=== PATIENT | female | born 1970 | race African-American/Black ===

== ENCOUNTER 2024-12-13 15:56 | Inpatient (IN) | payer BC, OTHER, SELFPAY ==
[2024-12-13] VITALS (39 sets, daily range): BP systolic 128–170; BP diastolic 77–113; PULSE 44–62; TEMP 36.4–36.8; O2SAT 92–100; BMI 30.2
--- NOTE | 2024-12-13 16:10 | CT_ITS ---
The [address] [address] Patient Name: STEPHEN ABERNATHY MRN: [id number] date: 1970 Sex: F Assigned Patient Location: ER Current Patient Location: [facility] Accession/Order Number: [id number] Exam Date: 12/13/2024 16:52 Report Date: 12/13/2024 16:54 At the request of: NEETU LOVELL MD Procedure: CT head/brain wo con CT head/brain wo con 12/13/2024 4:43 PM SIGNS AND SYMPTOMS: Headache, bradycardia TECHNIQUE:Multi-detector CT axial slices of the brain were obtained without IV contrast. CT was performed with one or more of the following dose reduction techniques: Automated exposure control, adjustment of the mA and/or kV according to patient size, or use of iterative reconstruction technique. COMPARISON: None. FINDINGS: There is no shift of the midline structures, acute intracranial bleeding, mass effects, or evidence of acute ischemia. The ventricular system is normal in size. The brainstem and the cerebellum are unremarkable. The visualized intraorbital contents and the infratemporal soft tissues show no acute abnormality. Polypoid mucosal thickening is noted in the right sphenoid sinus. The osseous structures in the skull base and the calvarium show no abnormality. CT/CT head/brain wo con IMPRESSION: No acute intracranial pathology. Impression dictated by: Henrique Rodriguez M.D. 12/13/2024 4:54 PM Dictation Location: [place] [address] Electronically authenticated by: [id number] Y Date: 12/13/2024 16:54
--- NOTE | 2024-12-13 16:28 | XR_ITS ---
[place] [id number] Patient Name: STEPHEN ABERNATHY MRN: [id number] date: 1970 Sex: F Assigned Patient Location: ER Current Patient Location: ED.MAIN Accession/Order Number: [id number] Exam Date: 12/13/2024 16:54 Report Date: 12/13/2024 16:56 At the request of: NEETU LOVELL MD Procedure: XR chest 2V XR chest 2V 12/13/2024 4:48 PM SIGNS AND SYMPTOMS: Headache, bradycardia PROTOCOL: Frontal radiograph of the chest COMPARISON: None FINDINGS: The trachea is midline. The heart and mediastinal structures are within normal limits. The heart is mildly enlarged. The heart and mediastinal structures are otherwise within normal limits. The bony thorax is intact. Degenerative changes are present in the thoracic spine. Anterior fusion hardware is noted in the lower cervical spine XR/XR chest 2V IMPRESSION: There is mild cardiomegaly. No focal consolidation. Impression dictated by: Henrique Rodriguez M.D. 12/13/2024 4:56 PM Dictation Location: [place] [address] Electronically authenticated by: [id number] Y Date: 12/13/2024 16:56
--- NOTE | 2024-12-13 16:28 | ECG_ITS ---
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 Measurements Intervals [place] Rate: 46 P: 67 NC: 206 QRS: 25 QRSD: 78 T: 75 QT: 456 QTc: 414 Interpretive Statements 1130 Sinus bradycardia 4068 Nonspecific Twave abnormality abnormal ECG No previous ECG available for comparison Electronically Signed On 12-13-2024 18:27:27 EDT by PLACIDO GIVENS M.D.
[2024-12-13] MEDS: ACETAMINOPHEN 500 MG TABLET PO (16:29)
[2024-12-13] MEDS: METOCLOPRAMIDE HCL 10 MG/2 ML VIAL IVP (16:30)
[2024-12-13] MEDS: DIPHENHYDRAMINE HCL 50 MG/ML VIAL 25 MG IVP (16:30)
--- NOTE | 2024-12-13 16:30 | ED_ITS ---
HPI HPI - General Adult General Chief complaint: Neuro Symptoms/Deficit Stated complaint: CHEST PAIN Time Seen by Provider: 12/13/24 16:10 Source: patient Mode of arrival: ambulance Limitations: no limitations History of Present Illness HPI narrative: Patient is a 54-year-old female who is presenting to the ER with headache from [facility]. All systems are negative except as noted/marked. All systems reviewed and otherwise negative. Nurses note and vital signs reviewed and patient is not hypoxic. General: The patient appears well and in no apparent distress. Patient is resting comfortably on cart. Patient is not toxic, lethargic, or listless Skin: Warm, dry, no pallor noted. There is no rash noted. No petechiae, purpura. Head: Normocephalic, atraumatic Eye: Normal conjunctiva, no drainage, EOMI. PERRL Ears, Nose, Mouth, and Throat: oral mucosa is moist. Nares patent. Mouth without vesicles. Cardiovascular: Regular Rate and Rhythm, no murmur, gallop, rub Respiratory: Patient is in no distress, no accessory muscle use, lungs are clear to auscultation, no wheezing, rales or rhonchi Back: non-tender, no CVA tenderness bilaterally to percussion. No CT LS midline pain GI: no tenderness to palpation, no masses appreciated. No rebound, guarding, or rigidity noted. No distention Musculoskeletal: Patient has full range of motion of all of the extremities, no motor, sensory, or focal neurological deficits Neurological: A&O x4, normal speech Psychiatric: Cooperative Related Data Allergies Allergy/AdvReac Type Severity Reaction Status Date / Time aspirin Allergy Unknown Verified 12/13/24 16:03 Penicillins Allergy Unknown Verified 12/13/24 16:03 quetiapine (From Seroquel) Allergy Unknown Verified 12/13/24 16:03 ziprasidone (From Geodon) Allergy Unknown Verified 12/13/24 16:03 Opioid HPI Opioid Management Most Recent Opioid Data: Last Pain Scale 10 Today, 16:04 Exam Constitutional Vital Signs, click to edit/add: Last Vital Signs Temp 98.2 F 12/13/24 16:04 Pulse 56 L 12/13/24 16:04 Resp 18 12/13/24 16:04 BP 158/86 H 12/13/24 16:04 Pulse Ox 97 12/13/24 16:04 Course Vital Signs Vital signs: Vital Signs Temperature 98.2 F 12/13/24 16:04 Pulse Rate 56 L 12/13/24 16:04 Respiratory Rate 18 12/13/24 16:04 Blood Pressure 158/86 H 12/13/24 16:04 Pulse Oximetry 97 12/13/24 16:04 Temperature 98.2 F 12/13/24 16:04 Pulse Rate 56 L 12/13/24 16:04 Respiratory Rate 18 12/13/24 16:04 Blood Pressure 158/86 H 12/13/24 16:04 Pulse Oximetry 97 12/13/24 16:04 Medical Decision Making ECG Data Attestation: I personally reviewed and interpreted this ECG as follows: (EKG interpretation. Normal sinus rhythm at 56 beats a minute. Artifact seen. Normal axis deviation. No acute ST elevation, no acute ectopy. QTc of 420. EKG #1.) Discharge Plan Discharge Chief Complaint: Neuro Symptoms/Deficit Print Language: French Referrals: Physician,Non-Staff, MD [Primary Care Provider] - 1 week
--- OUTSIDE RECORDS SUMMARY | 2024-12-13 16:35 | XMS_ITS | Encounter Summary ---
Author Organization [facility] Address [id number] [address] [place] [address] Care Team Providers Care Coin Box Inspector Name Role Phone Unavailable Primary Care Provider Unavailabl e Encounter Details Date Type Department Care Team (Late st Contact Info) Description 12/13/2024 4:35 PM EDT Ancillary Procedure [facility] [address] [place] [address] Pain Social History Tobacco Use Types Packs/Day Years Used Date Smoking Tobacco: Never Smokeless Tobacco: Never Alcohol Use Standard Drinks/Week Comments Not Currently 12 (1 standard drink = 0.6 oz pure alcohol) pt states she has not drank since 07/26/24 [facility] Utilities Answer Date Recorded In the past 12 months has [facility] electric, gas, oil, or water company threatened to shut off services in your home? No 08/18/2024 Overall Financial Resource Strain (CARDIA) Answe r Date Recorded How hard is it for you to pa y for the very basics like food, housing, medical care, and heating? Not very hard 08/18/2024 PRAPARE - Transportation Answer Date Re corded In the past 12 months, has l ack of transportation kept you from medical appointments or from getting medications? No 07/25 In the past 12 months, has l ack of transportation kept you from meetings, work, or from getting things needed for daily living? No 08/18/2024 Housing Instability Answer Date Recorde d Are you worried or concerned that in the next two months you may not have stable housing that you own, rent or stay in as a part of a household? No 08/18/2024 Hunger Screening Answer Date Recorded Within the past 12 months we worried whether our food would run out before we got money to buy more. Never True 08/18/2024 Within the past 12 months th e food we bought just didn't last and we didn't have money to get more. Never True 08/18/2024 Comments No Sex and Gender Information Value Date Recorded Sex Assigned at Not on file Legal Sex Female 7:59 PM EST Gender Identity Not on file Sexual Orientation Not on file documented as of this encounter Plan of Treatment Not on file documented as of this encounter Goals Goal Patient Goal Type Associated Problems Recent Progress Patient-Stated? Author DC to home General Yes Fallon Hathaway LSW Note: Evaluation of progress towards goal: In progress: DC to home today when her ride gets here. documented as of this encounter Procedures Procedure Name Priority Date/Time Associated Diagnosis Comments XR CHEST 2 VWS Routine 12/13/2024 4:35 PM EDT Pain documented in this encounter Results * X-ray chest 2 views (12/13/2024 4:35 PM EDT) us Scanning Provider External IMG DIAGNOSTIC IMAGIN G ORDERABLES Final Result documented in this encounter Visit Diagnoses Diagnosis Pain Generalized pain documented in this encounter
--- OUTSIDE RECORDS SUMMARY | 2024-12-13 16:45 | XMS_ITS | Encounter Summary ---
Author Organization [facility] Address [id number] [address] [place] [address] Care Team Providers Care Welder Plasma Arc Name Role Phone Unavailable Primary Care Provider Unavailabl e Reason for Visit * Diagnostic Imaging (Routine) - Pending Review Specialty Diagnoses / Procedures Referred By Danielle duggan Referred To Contact Radiology Diagnoses Pain Procedures CT brain without contrast [facility] [address] [place] [phone] Phone: tel: fax: Referral ID Status Reason Start Date Expiration Date V isits Requested Visits Authorized [id number] Pending Review 12/15/2024 12/15/2025 1 1 Encounter Details Date Type Department Care Team (Late st Contact Info) Description 12/13/2024 4:45 PM EDT Ancillary Procedure [facility] [address] [place] [phone] Pain Social History Tobacco Use Types Packs/Day Years Used Date Smoking Tobacco: Never Smokeless Tobacco: Never Alcohol Use Standard Drinks/Week Comments Not Currently 12 (1 standard drink = 0.6 oz pure alcohol) pt states she has not drank since 07/26/24 [facility] Utilities Answer Date Recorded In the past 12 months has e electric, gas, oil, or water company threatened [...] Procedure Name Priority Date/Time Associated Diagnosis Comments CT BRAIN WO CONT Routine 12/13/2024 4:45 PM EDT Pain documented in this encounter Results * CT brain without contrast (12/13/2024 4:45 PM EDT) us Scanning Provider External IMG CT ORDERABLES Fin al Result documented in this encounter Visit Diagnoses Diagnosis Pain Generalized pain documented in this encounter
[2024-12-13 17:37] LABS: Basophils Absolute Auto 0.1 10^3/uL (0.0-0.1); Eosinophils Absolute Auto 0.4 10^3/uL (0.0-0.7); Eosinophils Percent Auto 6.2 % (0.9-7.0); Hematocrit 38.2 % (36.0-48.0); Hemoglobin 12.9 g/dL (12.0-16.0); Immature Granulocytes Abs Auto 0.02 10^3/uL (0.00-0.03); Immature Granulocytes Pct Auto 0.3 % (0.0-0.5); Lymphocytes Absolute Auto 1.9 10^3/uL (1.2-3.8); Lymphocytes Percent Auto 32.1 % (20.5-60.0); Mean Corpuscular HGB Conc 33.8 g/dL (29.9-35.2); Mean Corpuscular Hemoglobin 30.7 pg (26.7-34.0); Mean Platelet Volume 9.5 fL (9.5-13.5); Monocytes Absolute Auto 0.6 10^3/uL (0.3-0.8); Monocytes Percent Auto 10.3 % (1.7-12.0); Neutrophils Absolute Auto 2.9 10^3/uL (1.4-6.5); Neutrophils Percent Auto 50.1 % (43.0-75.0); Platelet Count 254 10^3/uL (150-450); Red Cell Distribution Width 13.3 % (11.0-15.0); White Blood Count 5.8 10^3/uL (4.0-11.0)
[2024-12-13 18:00] LABS: Alanine Aminotransferase 47 U/L (14-59); Albumin Globulin Ratio 0.9; Albumin Level 3.4 g/dL (3.4-5.0); Alkaline Phosphatase 164 U/L (46-116); Anion Gap 9.4; Aspartate Amino Transferase 27 U/L (15-37); BUN Creatinine Ratio 15.2; Bilirubin Total 0.1 mg/dL (0.2-1.0); Calcium 8.8 mg/dL (8.5-10.1); Carbon Dioxide 30.4 mmol/L (21.0-32.0); Chloride 104 mmol/L (98-107); Estimated GFR (African America >60 (>=60 mL/min/1.73m^2); Estimated GFR (Non-African Ame >60 (>=60 mL/min/1.73m^2); Globulin 3.8 g/dL; Glucose 85 mg/dL (74-106); Potassium 3.8 mmol/L (3.5-5.1); Sodium 140 mmol/L (136-145); Total Protein 7.2 g/dL (6.4-8.2)
[2024-12-13 18:06] LABS: Troponin I High Sensitivity 5.6 pg/mL (4.0-51.3)
[2024-12-13] MEDS: DEXAMETHASONE SOD PHOS 10 MG/ML VIAL IV (18:06)
[2024-12-13] MEDS: ONDANSETRON PF 4 MG/2 ML VIAL IV (18:06)
--- NOTE | 2024-12-13 18:27 | ED.GENADUL1 ---
Documented by User: Melani Trivedi 12/14/24 11:35 HPI HPI - General Adult General Chief complaint: Neuro Symptoms/Deficit Stated complaint: CHEST PAIN Time Seen by Provider: 12/13/24 16:10 Source: patient Mode of arrival: ambulance Limitations: no limitations History of Present Illness HPI narrative: 54-year-old female presents here with a chief complaint of a headache. She is [facility] for the past month for rehabilitation crack, cocaine, alcohol addiction. patient is alert and orient this time. She was at the facility got worked up began to have a headache and stated was worst headache of her life . Patient had history of migraine headaches but states is not a typical migraine headache here. Patient denies any recent exposure to any drugs. She has been clean for a month. She is alert and oriented as I am talking to her, neurological deficit. she is squinting sitting and that her eyes hurt. Related Data Home Medications ?Medication ?Instructions ?Recorded ?Confirmed acetaminophen 500 mg capsule 500 mg PO BID PRN fever or pain 12/13/24 12/13/24 deutetrabenazine 30 mg 30 mg PO DAILY 12/13/24 12/13/24 tablet,extended release 24 hr (Austedo XR) diphenhydramine HCl 25 mg capsule 25 mg PO Q8H PRN allergy symptoms 12/13/24 12/13/24 (Benadryl) hydroxyzine HCl 25 mg tablet 25 mg PO Q6H PRN anxiety 12/13/24 12/13/24 ibuprofen 800 mg tablet 800 mg PO BID 12/13/24 12/13/24 lumateperone 42 mg capsule 42 mg PO DAILY 12/13/24 12/13/24 (Caplyta) melatonin 10 mg capsule 10 mg PO DAILY 12/13/24 12/13/24 mirtazapine 7.5 mg tablet 7.5 mg PO DAILY 12/13/24 12/13/24 naltrexone 50 mg tablet 50 mg PO DAILY 12/13/24 12/13/24 polyethylene glycol 3350 17 17 g PO DAILY 12/13/24 12/13/24 gram/dose oral powder (Miralax) sertraline 100 mg tablet (Zoloft) 100 mg PO DAILY 12/13/24 12/13/24 Allergies Allergy/AdvReac Type Severity Reaction Status Date / Time aspirin Allergy Unknown Verified 12/13/24 16:03 Penicillins Allergy Unknown Verified 12/13/24 16:03 quetiapine (From Seroquel) Allergy Unknown Verified 12/13/24 16:03 ziprasidone (From Geodon) Allergy Unknown Verified 12/13/24 16:03 Opioid HPI Opioid Management Most Recent Opioid Data: Last Pain Scale 10 Today, 10:09 Last Pain Assessment 12/13/24, 21:00 Last ORT Total Score 13 12/13/24, 19:51 Last ORT Risk Category High Risk 12/13/24, 19:51 Ur Phencyclidine Scrn, (NEGATIVE) Negative Today, 05:39 Review of Systems ROS Status of ROS 10 or more systems reviewed and unremarkable except as noted in history and below PFSH PFSH Medical History (Updated 12/13/24 @ 20:19 by Priscila Hernandez RN) Hx of headache ?Z87.898 - Personal history of other specified conditions (ICD-10) HTN (hypertension) ?I10 - Essential (primary) hypertension (ICD-10) Asthma ?J45.909 - Unspecified asthma, uncomplicated (ICD-10) COPD (chronic obstructive pulmonary disease) ?J44.9 - Chronic obstructive pulmonary disease, unspecified (ICD-10) Prediabetes ?R73.03 - Prediabetes (ICD-10) Hx of drug abuse ?F19.11 - Other psychoactive substance abuse, in remission (ICD-10) Stomach ulcer ?K25.9 - Gastric ulcer, unspecified as acute or chronic, without hemorrhage or perforation (ICD-10) History of intestine removal ?Z90.49 - Acquired absence of other specified parts of digestive tract (ICD-10) Degenerative disc disease Tardive dyskinesia ?G24.01 - Drug induced subacute dyskinesia (ICD-10) Hx of myocardial infarction ?I25.2 - Old myocardial infarction (ICD-10) Hx of completed stroke ?Z86.73 - Personal history of transient ischemic attack (TIA), and cerebral infarction without residual deficits (ICD-10) Surgical History (Updated 12/13/24 @ 20:19 by Priscila Hernandez RN) Hx of hernia repair ?Z98.890 - Other specified postprocedural states (ICD-10) ?Z87.19 - Personal history of other diseases of the digestive system (ICD-10) Hx of tonsillectomy ?Z90.89 - Acquired absence of other organs (ICD-10) H/O: hysterectomy ?Z90.710 - Acquired absence of both cervix and uterus (ICD-10) Hx of neck surgery ?Z98.890 - Other specified postprocedural states (ICD-10) Family History (Updated 12/13/24 @ 20:19 by Priscila Hernandez RN) Mother Family history of cancer Family history of diabetes mellitus Social History (Updated 12/13/24 @ 20:20 by Priscila Hernandez RN) Within the past year, how often did you have a drink containing alcohol: never Score interpretation: A score less than 3 is consistent with normal alcohol consumption. Smoking status: Never smoker Non-prescribed substance use: former substance user Highest level of school completed/degree received: 9th grade Are you now , , , , never or living with a partner: never In a typical week, how many times do you talk on the telephone with family, friends, or neighbors: twice per week How often do you get together with friends or relatives: twice per week Little interest or pleasure in doing things: not at all Feeling down, depressed, or hopeless: not at all Feel stressed/tense/nervous/anxious/difficulty sleeping: only a little Do you think of yourself as: lesbian/[place]/homosexual Gender Identity: female Exam Narrative Exam Narrative: All Systems are negative except as noted/marked.All systems reviewed and otherwise negative Nurses note and vital signs reviewed and patient is not hypoxic. General: The patient appears well and in no apparent distress. Patient is resting comfortably on cart. Skin: Warm, dry, no pallor noted. There is no rash noted. Head: Normocephalic, atraumatic Eye: Normal conjunctiva, no drainage, EOMI. PERRL Ears, Nose, Mouth, and Throat: oral mucosa is moist. Nares patent. Mouth without vesicles. Ear canals patent. Tm's without Erythema Cardiovascular: Regular Rate and Rhythm Respiratory: Patient is in no distress, no accessory muscle use, lungs are clear to auscultation, no wheezing, rales or rhonchi Back: non-tender, no CVA tenderness bilaterally to percussion. GI: Normal bowel sounds, no tenderness to palpation, no masses appreciated. No rebound, guarding, or rigidity noted. Musculoskeletal: The patient has no evidence of calf tenderness, no pitting edema, symmetrical pulses noted bilaterally Neurological: A&O x4, normal speech Psychiatric: Cooperative Constitutional Vital Signs, click to edit/add: Last Vital Signs Temp 98.4 F 12/14/24 09:49 Pulse 50 L 12/14/24 09:49 Resp 16 12/14/24 09:49 BP 163/81 H 12/14/24 09:49 Pulse Ox 95 12/14/24 09:49 O2 Del Method Room Air 12/14/24 09:49 Course Vital Signs Vital signs: Vital Signs Pulse Rate 52 L 12/13/24 15:58 Respiratory Rate 21 H 12/13/24 15:58 Pulse Oximetry 99 12/13/24 15:58 Temperature 98.4 F 12/14/24 09:49 Pulse Rate 50 L 12/14/24 09:49 Respiratory Rate 16 12/14/24 09:49 Blood Pressure 163/81 H 12/14/24 09:49 Pulse Oximetry 95 12/14/24 09:49 Oxygen Delivery Method Room Air 12/14/24 09:49 Medical Decision Making MDM Narrative Medical decision making narrative: 54-year-old female presents here with a chief complaint of a headache. She is currently at [facility] for the past month for rehabilitation crack, cocaine, alcohol addiction. patient is alert and orient this time. She was at the facility got worked up began to have a headache and stated was worst headache of her life . Patient had history of migraine headaches but states is not a typical migraine headache here. Patient denies any recent exposure to any drugs. She has been clean for a month. She is alert and oriented as I am talking to her, neurological deficit. she is squinting sitting and that her eyes hurt. To the emergency room, patient was experiencing a headache. She has been medicated with IV fluids Toradol Decadron Zofran. She has been bradycardic since here in the emergency room. No known history of bradycardia. She is on medication called austedo xr side effect of prolonged QT, to examine patient she complained of continued headache open 8 out of 10 were upon arrival was 10 out of 10. She has no focal neurological deficit. She has a new onset of bradycardia no history of bradycardia patient will be admitted as of headache, bradycardia Spoke to hospitalist concerning this patient's admission. She will be admitted as a observation telemetry Differential Diagnosis Differential Diagnosis: headache, bradycardia Medical Records Medical records reviewed: Yes I reviewed the patient's medical records Lab Data Lab results reviewed: Yes I reviewed the patient's lab results Labs: Lab Results 12/13/24 Range/Units 17:25 WBC 5.8 (4.0-11.0) 10^3/uL RBC 4.20 (4.20-5.40) 10^6/uL Hgb 12.9 (12.0-16.0) g/dL Hct 38.2 (36.0-48.0) % MCV 91.0 (81.0-99.0) fL MCH 30.7 (26.7-34.0) pg MCHC 33.8 (29.9-35.2) g/dL RDW 13.3 (11.0-15.0) % Plt Count 254 (150-450) 10^3/uL MPV 9.5 (9.5-13.5) fL Neut % (Auto) 50.1 (43.0-75.0) % Lymph % (Auto) 32.1 (20.5-60.0) % [place] % (Auto) 10.3 (1.7-12.0) % Eos % (Auto) 6.2 (0.9-7.0) % Baso % (Auto) 1.0 (0.2-2.0) % Neut # (Auto) 2.9 (1.4-6.5) 10^3/uL Lymph # (Auto) 1.9 (1.2-3.8) 10^3/uL [place] # (Auto) 0.6 (0.3-0.8) 10^3/uL Eos # (Auto) 0.4 (0.0-0.7) 10^3/uL Baso # (Auto) 0.1 (0.0-0.1) 10^3/uL Abs Immat Gran (auto) 0.02 (0.00-0.03) 10^3/uL Imm/Tot Granulo (auto) 0.3 (0.0-0.5) % Sodium 140 (136-145) mmol/L Potassium 3.8 (3.5-5.1) mmol/L Chloride 104 (98-107) mmol/L Carbon Dioxide 30.4 (21.0-32.0) mmol/L Anion Gap 9.4 BUN 14.0 (7.0-18.0) mg/dL Creatinine 0.92 (0.55-1.02) mg/dL Est GFR ( Amer) >60 (>=60 mL/min/1.73m^2) Est GFR (Non-Af Amer) >60 (>=60 mL/min/1.73m^2) BUN/Creatinine Ratio 15.2 Glucose 85 (74-106) mg/dL Calcium 8.8 (8.5-10.1) mg/dL Total Bilirubin 0.1 L (0.2-1.0) mg/dL AST 27 (15-37) U/L ALT 47 (14-59) U/L Alkaline Phosphatase 164 H (46-116) U/L Troponin I High Sens 5.6 (4.0-51.3) pg/mL NT-Pro-B Natriuret Pep 76.0 (<=900.0) pg/mL Total Protein 7.2 (6.4-8.2) g/dL Albumin 3.4 (3.4-5.0) g/dL Globulin 3.8 g/dL Albumin/Globulin Ratio 0.9 Imaging Data Chest x-ray: Radiologist's impression: ITS Impressions Head CT 12/13/24 16:10 IMPRESSION: No acute intracranial pathology. Impression dictated by: Henrique Rodriguez M.D. 12/13/2024 4:54 PM Dictation Location: [place] Electronically authenticated by: [id number] Y Date: 12/13/2024 16:54 Chest X-Ray 12/13/24 16:28 IMPRESSION: There is mild cardiomegaly. No focal consolidation. Impression dictated by: Henrique Rodriguez M.D. 12/13/2024 4:56 PM Dictation Location: [place] Electronically authenticated by: [id number] Y Date: 12/13/2024 16:56 ECG Data Interpretation: 1559 sinus rhythm with a rate of 56 bpm IN interval 192 ms QRS duration 80 ms artifact noted, no STEMI repeat ekg, 1656 sinus bradycardia with a rate of 46 bpm sinus bradycardia IN interval 206 ms QRS duration 78 ms no STEMI Discharge Plan Discharge Chief Complaint: Neuro Symptoms/Deficit Clinical Impression: Headache, Bradycardia, sinus Patient Disposition: Admitted as Observation Time of Disposition Decision: 18:37 Condition: Fair Discharge Date/Time: 12/13/24 19:53 Documented by User: Dany Diana MD 12/13/24 21:17 HPI HPI - General Adult General Chief complaint: Neuro Symptoms/Deficit Stated complaint: CHEST PAIN Time Seen by Provider: 12/13/24 16:10 Related Data Home Medications ?Medication ?Instructions ?Recorded ?Confirmed acetaminophen 500 mg capsule 500 mg PO BID PRN fever or pain 12/13/24 12/13/24 deutetrabenazine 30 mg 30 mg PO DAILY 12/13/24 12/13/24 tablet,extended release 24 hr (Austedo XR) diphenhydramine HCl 25 mg capsule 25 mg PO Q8H PRN allergy symptoms 12/13/24 12/13/24 (Benadryl) hydroxyzine HCl 25 mg tablet 25 mg PO Q6H PRN anxiety 12/13/24 12/13/24 ibuprofen 800 mg tablet 800 mg PO BID 12/13/24 12/13/24 lumateperone 42 mg capsule 42 mg PO DAILY 12/13/24 12/13/24 (Caplyta) melatonin 10 mg capsule 10 mg PO DAILY 12/13/24 12/13/24 mirtazapine 7.5 mg tablet 7.5 mg PO DAILY 12/13/24 12/13/24 naltrexone 50 mg tablet 50 mg PO DAILY 12/13/24 12/13/24 polyethylene glycol 3350 17 17 g PO DAILY 12/13/24 12/13/24 gram/dose oral powder (Miralax) sertraline 100 mg tablet (Zoloft) 100 mg PO DAILY 12/13/24 12/13/24 Allergies Allergy/AdvReac Type Severity Reaction Status Date / Time aspirin Allergy Unknown Verified 12/13/24 16:03 Penicillins Allergy Unknown Verified 12/13/24 16:03 quetiapine (From Seroquel) Allergy Unknown Verified 12/13/24 16:03 ziprasidone (From Geodon) Allergy Unknown Verified 12/13/24 16:03 Opioid HPI Opioid Management Most Recent Opioid Data: Last Pain Scale 10 Today, 10:09 Last Pain Assessment 12/13/24, 21:00 Last ORT Total Score 13 12/13/24, 19:51 Last ORT Risk Category High Risk 12/13/24, 19:51 Ur Phencyclidine Scrn, (NEGATIVE) Negative Today, 05:39 PFSH PFSH Medical History (Updated 12/13/24 @ 20:19 by Priscila Hernandez, MARCELO) Hx of headache ?Z87.898 - Personal history of other specified conditions (ICD-10) HTN (hypertension) ?I10 - Essential (primary) hypertension (ICD-10) Asthma ?J45.909 - Unspecified asthma, uncomplicated (ICD-10) COPD (chronic obstructive pulmonary disease) ?J44.9 - Chronic obstructive pulmonary disease, unspecified (ICD-10) Prediabetes ?R73.03 - Prediabetes (ICD-10) Hx of drug abuse ?F19.11 - Other psychoactive substance abuse, in remission (ICD-10) Stomach ulcer ?K25.9 - Gastric ulcer, unspecified as acute or chronic, without hemorrhage or perforation (ICD-10) History of intestine removal ?Z90.49 - Acquired absence of other specified parts of digestive tract (ICD-10) Degenerative disc disease Tardive dyskinesia ?G24.01 - Drug induced subacute dyskinesia (ICD-10) Hx of myocardial infarction ?I25.2 - Old myocardial infarction (ICD-10) Hx of completed stroke ?Z86.73 - Personal history of transient ischemic attack (TIA), and cerebral infarction without residual deficits (ICD-10) Surgical History (Updated 12/13/24 @ 20:19 by Priscila Hernandez, MARCELO) Hx of hernia repair ?Z98.890 - Other specified postprocedural states (ICD-10) ?Z87.19 - Personal history of other diseases of the digestive system (ICD-10) Hx of tonsillectomy ?Z90.89 - Acquired absence of other organs (ICD-10) H/O: hysterectomy ?Z90.710 - Acquired absence of both cervix and uterus (ICD-10) Hx of neck surgery ?Z98.890 - Other specified postprocedural states (ICD-10) Family History (Updated 12/13/24 @ 20:19 by Priscila Hernandez RN) Mother Family history of cancer Family history of diabetes mellitus Social History (Updated 12/13/24 @ 20:20 by Priscila Hernandez RN) Within the past year, how often did you have a drink containing alcohol: never Score interpretation: A score less than 3 is consistent with normal alcohol consumption. Smoking status: Never smoker Non-prescribed substance use: former substance user Highest level of school completed/degree received: 9th grade Are you now , , , , never or living with a partner: never In a typical week, how many times do you talk on the telephone with family, friends, or neighbors: twice per week How often do you get together with friends or relatives: twice per week Little interest or pleasure in doing things: not at all Feeling down, depressed, or hopeless: not at all Feel stressed/tense/nervous/anxious/difficulty sleeping: only a little Do you think of yourself as: lesbian/[place]/homosexual Gender Identity: female Exam Constitutional Vital Signs, click to edit/add: Last Vital Signs Temp 98.4 F 12/14/24 09:49 Pulse 50 L 12/14/24 09:49 Resp 16 12/14/24 09:49 BP 163/81 H 12/14/24 09:49 Pulse Ox 95 12/14/24 09:49 O2 Del Method Room Air 12/14/24 09:49 Course Vital Signs Vital signs: Vital Signs Pulse Rate 52 L 12/13/24 15:58 Respiratory Rate 21 H 12/13/24 15:58 Pulse Oximetry 99 12/13/24 15:58 Temperature 98.4 F 12/14/24 09:49 Pulse Rate 50 L 12/14/24 09:49 Respiratory Rate 16 12/14/24 09:49 Blood Pressure 163/81 H 12/14/24 09:49 Pulse Oximetry 95 12/14/24 09:49 Oxygen Delivery Method Room Air 12/14/24 09:49 Medical Decision Making MDM Narrative Medical decision making narrative: 54-year-old female presents here with a chief complaint of a headache. She is currently at [facility] for the past month for rehabilitation crack, cocaine, alcohol addiction. patient is alert and orient this time. She was at the facility got worked up began to have a headache and stated was worst headache of her life . Patient had history of migraine headaches but states is not a typical migraine headache here. Patient denies any recent exposure to any drugs. She has been clean for a month. She is alert and oriented as I am talking to her, neurological deficit. she is squinting sitting and that her eyes hurt. To the emergency room, patient was experiencing a headache. She has been medicated with IV fluids Toradol Decadron Zofran. She has been bradycardic since here in the emergency room. No known history of bradycardia. She is on medication called austedo xr side effect of prolonged QT, to examine patient she complained of continued headache open 8 out of 10 were upon arrival was 10 out of 10. She has no focal neurological deficit. She has a new onset of bradycardia no history of bradycardia patient will be admitted as of headache, bradycardia headache has improved and the edge was taken off with IV medications given.. Spoke to hospitalist concerning this patient's admission. She will be admitted as a observation telemetry Patient's headache was not the worse headache of her life, not sudden onset, not thunderclap in nature. Patient was initially stating to nursing staff that this was the worst headache of her life but patient states that she has had similar headaches to this before, this was not sudden onset. Lumbar puncture was discussed at bedside with patient. CT of the head was negative. Patient was told if this is true the worst headache of her life and she has never had a headache like this before, we should perform lumbar puncture to rule out small percentage chance of intracranial hemorrhage. Patient is aware the risk and benefits of performing lumbar puncture or not. Patient declines lumbar puncture at this time. Patient has been in the ER significant amount of time secondary to delays in drawing patient's labs from lab and nursing staff, along with obtaining results of lab work. Patient was not initially bradycardic in the 40s when she arrived, patient has had continuous cardiac monitoring. Multiple different medications have been given at different times for her headache. Critical care time 32 minutes exclusive from separate billable procedures that were performed. The following was considered in the determination of critical care but not limited to the level of medical decision making, intensive cardiac and/or respiratory monitoring, frequent vital sign monitoring, evaluation of laboratory studies, evaluation of radiographic studies, oxygen monitoring, and constant monitoring and speaking to family at bedside Lab Data Labs: Lab Results 12/13/24 Range/Units 17:25 WBC 5.8 (4.0-11.0) 10^3/uL RBC 4.20 (4.20-5.40) 10^6/uL Hgb 12.9 (12.0-16.0) g/dL Hct 38.2 (36.0-48.0) % MCV 91.0 (81.0-99.0) fL MCH 30.7 (26.7-34.0) pg MCHC 33.8 (29.9-35.2) g/dL RDW 13.3 (11.0-15.0) % Plt Count 254 (150-450) 10^3/uL MPV 9.5 (9.5-13.5) fL Neut % (Auto) 50.1 (43.0-75.0) % Lymph % (Auto) 32.1 (20.5-60.0) % [place] % (Auto) 10.3 (1.7-12.0) % Eos % (Auto) 6.2 (0.9-7.0) % Baso % (Auto) 1.0 (0.2-2.0) % Neut # (Auto) 2.9 (1.4-6.5) 10^3/uL Lymph # (Auto) 1.9 (1.2-3.8) 10^3/uL [place] # (Auto) 0.6 (0.3-0.8) 10^3/uL Eos # (Auto) 0.4 (0.0-0.7) 10^3/uL Baso # (Auto) 0.1 (0.0-0.1) 10^3/uL Abs Immat Gran (auto) 0.02 (0.00-0.03) 10^3/uL Imm/Tot Granulo (auto) 0.3 (0.0-0.5) % Sodium 140 (136-145) mmol/L Potassium 3.8 (3.5-5.1) mmol/L Chloride 104 (98-107) mmol/L Carbon Dioxide 30.4 (21.0-32.0) mmol/L Anion Gap 9.4 BUN 14.0 (7.0-18.0) mg/dL Creatinine 0.92 (0.55-1.02) mg/dL Est GFR ( Amer) >60 (>=60 mL/min/1.73m^2) Est GFR (Non-Af Amer) >60 (>=60 mL/min/1.73m^2) BUN/Creatinine Ratio 15.2 Glucose 85 (74-106) mg/dL Calcium 8.8 (8.5-10.1) mg/dL Total Bilirubin 0.1 L (0.2-1.0) mg/dL AST 27 (15-37) U/L ALT 47 (14-59) U/L Alkaline Phosphatase 164 H (46-116) U/L Troponin I High Sens 5.6 (4.0-51.3) pg/mL NT-Pro-B Natriuret Pep 76.0 (<=900.0) pg/mL Total Protein 7.2 (6.4-8.2) g/dL Albumin 3.4 (3.4-5.0) g/dL Globulin 3.8 g/dL Albumin/Globulin Ratio 0.9 Imaging Data Chest x-ray: Radiologist's impression: ITS Impressions Head CT 12/13/24 16:10 IMPRESSION: No acute intracranial pathology. Impression dictated by: Henrique Rodriguez M.D. 12/13/2024 4:54 PM Dictation Location: [place] [address] Electronically authenticated by: [id number] Y Date: 12/13/2024 16:54 Chest X-Ray 12/13/24 16:28 IMPRESSION: There is mild cardiomegaly. No focal consolidation. Impression dictated by: Henrique Rodriguez M.D. 12/13/2024 4:56 PM Dictation Location: [place] [address] Electronically authenticated by: [id number] Y Date: 12/13/2024 16:56 ECG Data Attestation: I personally reviewed and interpreted this ECG as follows: (EKG interpretation. Normal sinus rhythm at 56 beats a minute. Artifact seen. Normal axis deviation. No acute ST elevation, no acute ectopy. QTc of 420. EKG #1.) Interpretation: 1559 sinus rhythm with a rate of 56 bpm IN interval 192 ms QRS duration 80 ms artifact noted, no STEMI EKG #2. repeat ekg, 1656 sinus bradycardia with a rate of 46 bpm sinus bradycardia IN interval 206 ms QRS duration 78 ms no STEMI Discharge Plan Discharge Chief Complaint: Neuro Symptoms/Deficit Clinical Impression: Headache, Bradycardia, sinus Patient Disposition: Admitted as Observation Time of Disposition Decision: 18:37 Condition: Fair Discharge Date/Time: 12/13/24 19:53
[2024-12-13] MEDS: 0.9 % SODIUM CHLORIDE 1,000 ML 1000 ML IV (18:42)
[2024-12-13] MEDS: KETOROLAC TROMETHAMINE 30 MG/ML VIAL IVP (18:42)
--- NOTE | 2024-12-13 19:22 | PC.NURSE ---
Report to Blessing ROBERTSON at [facility]--informed that she will be staying in room 232.
--- NOTE | 2024-12-13 19:29 | PC.NURSE ---
Report called to Elen ROBERTSON. 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
[2024-12-13] MEDS: MAGNESIUM SULFATE IN WATER 2 GM/50 ML PREMIX 3.3 GM IV (19:32)
--- NOTE | 2024-12-13 20:50 | PC.NURSE ---
Patient states her Headache is worse like before. Patient on phone to girlfriend who was being loud and cussing. Patient seemed anxious, legs restless and patient flopping around on bed. This health technical writer gave icepack for head and educated patient on deep breathing and relaxation. 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
[2024-12-13] MEDS: HYDROXYZINE HCL 25 MG TABLET PO (21:51)
[2024-12-14] VITALS (22 sets, daily range): BP systolic 138–194; BP diastolic 70–90; PULSE 42–68; TEMP 36.6–37; O2SAT 93–97
[2024-12-14] MEDS: KETOROLAC TROMETHAMINE 30 MG/ML VIAL 15 MG IVP ×4 (00:27→22:48)
[2024-12-14 05:52] LABS: Bilirubin Urine NEGATIVE (NEGATIVE); Blood Urine MODERATE (NEGATIVE); Clarity Urine CLEAR (CLEAR); Color Urine RED (YELLOW); Glucose Urine UA 250 mg/dL (NEGATIVE); Ketones Urine NEGATIVE (NEGATIVE); Leukocyte Esterase Urine MODERATE (NEGATIVE); Nitrite Urine NEGATIVE (NEGATIVE); Protein Urine NEGATIVE (NEG/TRACE); Specific Gravity Urine 1.025 (1.005-1.025)
[2024-12-14 06:00] LABS: Amorphous Sediment Urine RARE; Bacteria Urine SMALL #/HPF (NONE SEEN); Cast Seen? NONE SEEN #/LPF (NONE SEEN); Crystals Seen? Seen #/HPF (None Seen); Squamous Epithelial Cell Urine FEW #/LPF (NONE/RARE); Trichomonas Urine SEEN (NONE SEEN); Urine Culture Indicated YES-FRMC
--- NOTE | 2024-12-14 06:00 | ECG_ITS ---
[facility] Test Date: 2024-12-14 Pat Name: STEPHEN ABERNATHY Department: Room: Formerly named [facility] Gender: Female [employer] Rep[employer]r: : 1970 Requested By: [id number] Order Number: [id number] Reading MD: PLACIDO GIVENS M.D. Measurements Intervals [place] Rate: 43 P: 58 NV: 207 QRS: 7 QRSD: 72 T: 90 QT: 441 QTc: 377 Interpretive Statements SINUS BRADYCARDIA POSSIBLE LEFT ATRIAL ENLARGEMENT [-0.1mV P WAVE IN V1/V2] NONSPECIFIC T-WAVE ABNORMALITY Compared to ECG 12/13/2024 16:56:09 No significant changes Electronically Signed On 12-14-2024 9:31:20 EDT by PLACIDO GIVENS M.D.
[2024-12-14] MEDS: HYDRALAZINE HCL 20 MG/ML VIAL 5 MG IVP (06:15)
[2024-12-14 06:17] LABS: Amphetamine Screen Urine NEGATIVE (NEGATIVE); Barbiturates Screen Urine NEGATIVE (NEGATIVE); Benzodiazepines Screen Urine NEGATIVE (NEGATIVE); Buprenorphine Screen Urine NEGATIVE (NEGATIVE); Cannabinoid Screen Urine NEGATIVE (NEGATIVE); Cocaine Screen Urine NEGATIVE (NEGATIVE); Methadone Screen Urine NEGATIVE (NEGATIVE); Methamphetamines Screen Urine NEGATIVE (NEGATIVE); Opiate Screen Urine NEGATIVE (NEGATIVE); Oxycodone Screen Urine NEGATIVE (NEGATIVE); Phencyclidine Screen Urine NEGATIVE (NEGATIVE); Tricyclic Antidepressant Urine NEGATIVE (NEGATIVE)
[2024-12-14 06:26] LABS: Mean Corpuscular HGB Conc 34.1 g/dL (29.9-35.2); Mean Corpuscular Hemoglobin 30.3 pg (26.7-34.0); Mean Corpuscular Volume 88.7 fL (81.0-99.0); Mean Platelet Volume 9.5 fL (9.5-13.5); Platelet Count 268 10^3/uL (150-450); Red Blood Count 4.62 10^6/uL (4.20-5.40); White Blood Count 8.5 10^3/uL (4.0-11.0)
[2024-12-14 06:41] LABS: Anion Gap 13.2; Chloride 107 mmol/L (98-107); Estimated GFR (African America >60 (>=60 mL/min/1.73m^2); Estimated GFR (Non-African Ame >60 (>=60 mL/min/1.73m^2); Glucose 131 mg/dL (74-106); Potassium 4.2 mmol/L (3.5-5.1); Sodium 143 mmol/L (136-145)
[2024-12-14 06:45] LABS: Troponin I High Sensitivity 4.9 pg/mL (4.0-51.3)
[2024-12-14] MEDS: HYDROXYZINE HCL 25 MG TABLET PO (07:02)
--- NOTE | 2024-12-14 08:58 | SWNOTE1 ---
FILIBERTO and I stopped into pt's room for consult for housing. Pt is at [facility], she is also from the [facility]. SW asked pt how much longer she will be at [facility] as she has been there for 30 days. Pt voiced she has 30 more days to stay and is now in PHP program there (SW to confirm what PHP is with [facility]). SW did ask if she has a telehealth case manager at [facility], pt confirmed her telehealth case manager is Estella. SW asked what the plan is after [facility]. Pt voiced that she applied for sober living in [facility] but it did not work out. Pt asked about section 8 housing in this area. SW did explain that there are various apartment complexes but there is usually a wait list. SW unsure if they're all section 8 housing. SW advised pt that FILIBERTO is going to talk to Estella first to see how we can assist in regards to finding pt housing. Pt did ask if FILIBERTO is able to help find housing but SW advised that [facility] may have more resources for sober living and SW has to speak to Estella. SW asked about pt's family in the [facility] and pt voiced she has to get back into contact with them. FILIBERTO called [employer] and waiting for call back from Estella.
[2024-12-14 09:12] LABS: Troponin I High Sensitivity 5.1 pg/mL (4.0-51.3)
[2024-12-14] MEDS: FOLIC ACID 1 MG TABLET PO (09:18)
[2024-12-14] MEDS: SERTRALINE HCL 100 MG TABLET PO (09:18)
[2024-12-14] MEDS: MIRTAZAPINE 15 MG TABLET 7.5 MG PO (09:18)
[2024-12-14] MEDS: MULTIVITAMIN TABLET 1 TAB PO (09:18)
[2024-12-14] MEDS: ACETAMINOPHEN 500 MG TABLET PO ×2 (09:18→20:03)
[2024-12-14] MEDS: POLYETHYLENE GLYCOL 3350 17 GM POWDER PACKET PO (09:19)
[2024-12-14 09:21] LABS: INR 1.06; Prothrombin Time 11.2 sec (9.0-11.6)
--- NOTE | 2024-12-14 09:30 | CM.NOTE ---
Rounds made with Dr. Schmitt, pt continues to c/o headache [address] Schmitt discussed with pt about further testing MRI brain and neck. Dr. Schmitt will also order pain medication for better pain control. No discharge today.
--- NOTE | 2024-12-14 09:40 | MR_ITS ---
The [address] [address] Patient Name: STEPHEN ABERNATHY MRN: [id number] date: 1970 Sex: F Assigned Patient Location: [place] Current Patient Location: [place] Accession/Order Number: [id number] Exam Date: 12/14/2024 11:49 Report Date: 12/14/2024 11:52 At the request of: REZA DARNELL MD Procedure: MR head/brain wo con MR head/brain wo con 12/14/2024 9:41 AM SIGN AND SYMPTOMS: ^severe headache PROTOCOL: Multiplanar multisequence MR images of the brain without IV contrast COMPARISON: None. FINDINGS: Extra axial spaces: Age appropriate. Hemorrhage: None. Ventricular system: Within normal limits. Basal cisterns: Within normal limits and not effaced. Cerebral parenchyma: Periventricular white matter T2 and FLAIR hyperintense signal is noted. Midline shift: None.. Cerebellum: Within normal limits. Brainstem: Within normal limits. OTHER: Calvarium: Normal marrow signal. Vascular system: Satisfactory flow voids within the anterior and posterior circulation. Visualized Paranasal sinuses: Because thickening is noted in the maxillary sinuses. Visualized Orbits: Within normal limits. Visualized upper cervical spine: Degenerative changes are noted in the upper cervical spine. Sella and skull base: Within normal limits. MR/MR head/brain wo con IMPRESSION: No acute intracranial pathology. Periventricular and subcortical white matter T2 and FLAIR hyperintense signal is noted. This is nonspecific but may represent chronic microvascular ischemic change. Mucosal thickening is noted in the maxillary sinuses. Impression dictated by: Henrique Rodriguez M.D. 12/14/2024 11:52 AM Dictation Location: [place] [address] Electronically authenticated by: [id number] Y Date: 12/14/2024 11:52
--- NOTE | 2024-12-14 09:41 | MR_ITS ---
The [address] [address] Patient Name: STEPHEN ABERNATHY MRN: [id number] date: 1970 Sex: F Assigned Patient Location: [place] Current Patient Location: [place] Accession/Order Number: [id number] Exam Date: 12/14/2024 13:02 Report Date: 12/14/2024 13:08 At the request of: REZA DARNELL MD Procedure: MR cervical spine wo con MR cervical spine wo con 12/14/2024 12:02 PM SIGNS AND SYMPTOMS: ^severe neck pain PROTOCOL: Multiplanar multisequence MR images of the cervical spine without IV contrast COMPARISON: None. FINDINGS: The bones of the cervical spine are in anatomic alignment. There is preservation of vertebral body heights. There is corpectomy with anterior fusion hardware from C4 through C7. There is severe disc height loss at C3-C4 and C7-T1. The marrow signal is within normal limits. Chronic myelomalacia is noted within the cord at the C5 and C6 levels anteriorly. No epidural or paraspinous fluid collection is appreciated. The visualized paraspinous soft tissues are within normal limits. The prevertebral soft tissues are within normal limits. At C2-C3: There is a normal disc, central canal, and neural foramen. At C3-C4: There is uncovertebral joint spurring and facet hypertrophy. There is moderate to severe left and moderate right neural foraminal narrowing with moderate to severe spinal canal stenosis. At C4-C5: There is a normal disc, central canal, and neural foramen. At C5-C6: There is a normal disc, central canal, and neural foramen. At C6-C7: There is right-sided uncovertebral joint spurring and facet hypertrophy contributing to moderate right neural foraminal narrowing without spinal canal narrowing. At C7-T1: There is a broad-based bulge with uncovertebral joint spurring and facet hypertrophy contributing to moderate to severe bilateral neural foraminal narrowing with mild spinal canal narrowing. MR/MR cervical spine wo con IMPRESSION: At C3-C4: There is uncovertebral joint spurring and facet hypertrophy. There is moderate to severe left and moderate right neural foraminal narrowing with moderate to severe spinal canal stenosis. At C6-C7: There is right-sided uncovertebral joint spurring and facet hypertrophy contributing to moderate right neural foraminal narrowing without spinal canal narrowing. At C7-T1: There is a broad-based bulge with uncovertebral joint spurring and facet hypertrophy contributing to moderate to severe bilateral neural foraminal narrowing with mild spinal canal narrowing. Chronic myelomalacia is noted within the cord at the C5 and C6 levels anteriorly. There is corpectomy with anterior fusion hardware from C4 through C7. There is severe disc height loss at C3-C4 and C7-T1. Impression dictated by: Hnerique Rodriguez M.D. 12/14/2024 1:08 PM Dictation Location: [place] [address] Electronically authenticated by: [id number] Y Date: 12/14/2024 13:08
--- NOTE | 2024-12-14 09:57 | SWNOTE1 ---
FILIBERTO received a call from Tito Jackson [employer] from [employer], he assured SW that [employer] would take care of finding pt sober living/housing. SW stopped back in to pt's room to let pt know that SW spoke with [employer] and they will assist pt with housing when she is ready for discharge. Pt voiced understanding. Pt did ask if SW asked about her dental appointment that was scheduled today. SW to speak with [facility] about appointment.
[2024-12-14 10:00] LABS: C Reactive Protein <0.50 mg/dL (<=0.50)
[2024-12-14 10:07] LABS: Erythrocyte Sedimentation Rate 35 mm/hr (<=30)
--- OUTSIDE RECORDS SUMMARY | 2024-12-14 10:13 | XMS_ITS | Encounter Summary ---
Author Organization [email or web address] Sys [employer] Address [facility] [id number] [address] [place] [address] Care Team Providers Care Spinning Frame Tender Name Role Phone Unavailable Primary Care Provider Unavailabl e Encounter Details Date Type Department Care Team (Late st Contact Info) Description 12/14/2024 10:13 AM EDT - 12/17/2024 2:39 PM EDT Emergency [facility] Tele Stroke [address] [place] [address] Discharge Disposition: Telemedicine Discharge Social History Tobacco Use Types Packs/Day Years Used Date Smoking Tobacco: Never Smokeless Tobacco: Never Alcohol Use Standard Drinks/Week Comments Not Currently 12 (1 standard drink = 0.6 oz pure alcohol) pt states she has not drank since 07/26/24 [facility] Utilities Answer Date Recorded In the past 12 months has [facility] electric, gas, oil, or water company [...] on file documented as of this encounter Medications at Time of Discharge diphenhydrAMINE (BENADRYL) 25 mg capsule Take 1 capsule (25 mg total) by mouth in the morning and 1 capsule (25 mg total) before bedtime. hydrOXYzine (VISTARIL) 25 mg capsule Take 1 capsule (25 mg total) by mouth as needed in the morning and 1 capsule (25 mg total) as needed at noon and 1 capsule (25 mg total) as needed in the evening for itching. docusate sodium (COLACE) 50 mg capsule Take 1 capsule (50 mg total) by mouth 2 (two) times a day as needed for constipation. 12/19/2024 DULoxetine (CYMBALTA) 60 mg capsule Take 1 capsule (60 mg total) by mouth in the morning. 30 capsule 08/20/2024 12/19/2024 gabapentin (NEURONTIN) 300 mg capsuleIndicatio ns:Neurological deficit present,Weakness ,Foraminal stenosis of cervical region Take 2 capsules (600 mg total) by mouth 3 (three) times a day. 90 capsule 08/20/2024 12/19/2024 lisinopriL (PRINIVIL,ZESTRI L) 10 mg tablet Take 1 tablet (10 mg total) by mouth in the morning. 12/19/2024 documented as of this encounter Miscellaneous Notes * Plan of Care - Frannie Leon APRN-PLASTERER JOURNEYMAN - 12/17/2024 11:12 AM EDT TELE NEUROLOGY PLAN OF CARE NOTE: Per RN, patient is much improved compared to yesterday and now alert and oriented. Patient is possibly being transferred to higher level of care for further cardiac workup. No further tele neurology workup recommended this time. Please reach out with questions or concerns. RAYMOND Azul 12/17/24 1114 * Telehealth Note - Lashanda Murrieta MD - 12/16/2024 3:10 PM EDT Images from the original note were not included. [facility] TELENEUROLOGY FOLLOW UP PROGRESS NOTE LOS: 0 days Hospital: [place] Brief History: Eduarda Porter is a 54 y.o. female with past medical history significant for polysubstance abuse, alcohol abuse, hypertension, bipolar disorder, CVA, GA, gastric ulcer, tardive dyskinesia, degenerativedisc disease, headaches and COPD whom presented to the ED regarding headache. She reports this is the worst headache of my life and different than her previous migraine headaches. The headache was holocephalic, severe pain and rated it was 10/10. She was also experiencing numbness to left arm, blurred vision, photosensitivity and nausea on initial presentation. The left arm numbness has been present for weeks and worsens based off her positioning. At baseline, Eduarda has neck pain and following her hospitalization in July it was recommended she follow up with neurosurgery but was never seen in clinic. Eduarda denies vision loss, speech disturbance, or focal weakness. Noncontrast CT brain was negative for acute intracranial process. Eduarda entered a drug rehab program in October and reports no alcohol or illicit drug use for approximately a month. Her blood pressure has been monitored at rehab and reports it has been elevated as high as systolic in the 170s. Eduarda was admitted and a teleneurology consult was requested. Interval History: Eduarda completed head which was negative for acute findings, stenosis or aneurysm. Overnight, Eduarda went bradycardic and unresponsive. Repeat CT brain was negative for acute intracranial process. Since then she remains lethargic but will open eyes to verbal stimuli and follow all commands. No focal deficits on command. She denies any current headache on exam. ROS: Other than what is mentioned above, a review of systems is negative for HEENT, cardiovascular, pulmonary, gastrointestinal, urinary, musculoskeletal, skin, endocrine, and immunologic. Scheduled meds: PRN meds: Objective: General appearance: Lethargic but opens eyes to verbal stimuli and follows commands Cardiovascular: on monitor Chest:Appears unlabored Extremities: No pedal edema, no cyanosis or clubbing Abdomen: No overt distention. Skin: No rashes or lesions Neurological Exam Patient evaluation done through video consult. Patient currently sitting up in bed. Lethargic but opens eyes to verbal stimuli. She is oriented x4 and follows commands. Symmetric face. EOMs intact. Slow to respond but no dysarthria or aphasia. Raises all 4 extremities antigravity with no drift. Patient performs mmsdlz-iu-daot testing successfully. Limited neuro examination given the limitations of video unable to test reflexes or motor strength. I reviewed the following studies: Lab Review Imaging/Testing CTA head report (imaging not available for personal review on exam): Clinical Impression: Eduarda Porter is a 54 y.o. female with past medical history significant for polysubstance abuse, alcohol abuse, hypertension, bipolar disorder, CVA, GA, gastric ulcer, tardive dyskinesia, degenerativedisc disease, headaches and COPD whom presented to the ED regarding headache. She reports this is the worst headache of my life and different than her previous migraine headaches. CTA head negativefor aneurysm, stenosis or dissection. Overnight she was found to be unresponsive per staff and bradycardic. Repeat CT brain negative. On exam she will respond to verbal stimuli with no new focal neurologic deficits Plan: 1) Continue to treat headache with PRN medications. No headache on exam 2) Will recommend avoiding narcotics and sedating medications 3) continue neuro checks and vitals per policy, will follow clinically 4) recommend outpatient follow-up with Neurosurgery, will send referral as patient is interested infollowing up in [place] as previously recommended. Consider outpatient EMG-NC for left arm numbness.She takes gabapentin as a home medication, resume when appropriate Attending called but no answer Teleneurology evaluation was requested on this patient. To the best of my ability the purpose of telestroke was reviewed with patient prior to initiation of visit and verbal consent was attempted/ obtained. Time spent on this visit was 25 mins. I, SACHI Frannie Leon CNP, assisted with documentation during the assessment of this patient. Patient seen on camera with attending, Dr Valiente [id number] Telestroke FU 25 minutes This note is dictated with the use of M*Modal.Please note that this dictation was completed with computer voice recognition software. Quite often unanticipated grammatical, syntax, homophones, and other interpretive errors are inadvertently transcribed by the computer software. Please disregard these errors. Please excuse any errors that have escaped final proofreading Tele-NeurologyTelemedicine Consult Note Consent Statement: I discussed risks, benefits, and alternatives of a real-time synchronous audiovisual consultation with the patient (and any accompanying persons) including the risks that the patient's personal health details and medical records will be discussed over real-time, synchronous, interactive video/audio/telecommunication technology, the visit will not be recorded without the express consent of both the provider and the patient, and that there are some limitations compared to vswx-tq-sxuj evaluations. We elected to proceed. Frannie Leon APRN-PLASTERER JOURNEYMAN 12/16/24 1536 ILashanda MD MPH , provided the documented services for this patient. I personally reviewed previous medical history, laboratory studies, neuroimaging, and completed a wqbw-zy-indt physical assessment on this patient via live audio/ video camera. To the best of my ability, the assessment and plan was discussed with patient and bedside staff. - 54-year-old woman with past medical history mentioned above was admitted to a rehabilitation treatment program on 11/16/2024. She presented to the emergency department from the rehab facility with elevated blood pressure and severe headache. - Reports worst headache of her life, described as 10/10 in severity, affecting the back of her head, neck, and frontal regions. The headache was accompanied by blurry vision. - The headache has improved to 3-4/10 at the time of examination but persists along with blurry vision. - Patient reports tingling in her left hand - Patient reports blurry vision that worsened yesterday, describing it as extremely blurry more than ever and having difficulty focusing. She wears glasses but has not seen an eye doctor in approximately three years. - Investigations: CT brain was negative for acute intracranial findings. MRI cervical spine was completed which redemonstrated C5 and C6 (known to the patient, was supposed to follow with Neurosurgery but never did). Interval history: - Overnight she became unresponsive and bradycardic, pulse rate in 30s - no repot of seizure or seizure-like activity - Has been somnolent but is able to communicate verbally and follow commands - CTA head and neck did not show any evidence of aneurysm - Last night she received Remeron and Benadryl - Vital signs are stable and within normal limits, no fever - earlier today she reported that her headaches improved ASSESSMENT/PLAN: Altered mental status - severe bradycardia Exam reassuring. Opens her eyes to verbal stimuli and is able to follow commands consistently in all 4 extremities. Cardiac monitoring Medical management by primary team We will reassess the patient tomorrow Severe Headache with Blurry Vision - improving CTA head and neck did not show any evidence of aneurysm Brain MRI did not show any acute findings Okay to take Tylenol or Toradol for headache Avoid Triptan or DHE as the patient has prior history of CVA and myocardial infarction Cervical myelopathy (potentially explaining her left hand paresthesia) Continue gabapentin 600 mg TID Patient to follow with Neurosurgery/spine surgeon as outpatient. Patient expressed willingness to follow with [facility] in [place] May need EMG-NCV as outpatient Lashanda Murrieta MD [facility] Neurology * Telehealth Consult - Lashanda Murrieta MD - 12/15/2024 11:07 AM EDT Images from the original note were not included. [facility] TELENEUROLOGY CONSULTATION NOTE Telemedicine consultation was requested on this patient. To the best of my ability the purpose of teleneurology was reviewed with patient prior to initiation of visit and verbal consent was obtained. Hospital: [facility] [place] Patient Seen: Floor Neurology Consult Note Consult Date: 12/15/2024 Referring Physician: No att. providers found Reason for Consult I have been asked to see the patient in neurological consultation to render advice and opinion regarding headache History of Present Illness Eduarda Porter is a 54 y.o. female with past medical history significant for polysubstance abuse, alcohol abuse, hypertension, bipolar disorder, CVA, GA, gastric ulcer, tardive dyskinesia, degenerativedisc disease, headaches and COPD whom presented to the ED regarding headache. She reports this is the worst headache of my life and different than her previous migraine headaches. The headache was holocephalic, severe pain and rated it was 10/10. She was also experiencing numbness to left arm, blurred vision, photosensitivity and nausea on initial presentation. The left arm numbness has been present for weeks and worsens based off her positioning. At baseline, Eduarda has neck pain and following her hospitalization in July it was recommended she follow up with neurosurgery but was never seen in clinic. Eduarda denies vision loss, speech disturbance, or focal weakness. Noncontrast CT brain was negative for acute intracranial process. Eduarda entered a drug rehab program in October and reports no alcohol or illicit drug use for approximately a month. Her blood pressure has been monitored at rehab and reports it has been elevated as high as systolic in the 170s. Eduarda was admitted and a teleneurology consult was requested. This afternoon, Eduarda is sitting up in chair alert , oriented and following commands. She is happyto report improvement in her headache and blurred vision today. She rates it as a 3/10 frontal headache. She continues to have intermittent left arm paresthesia at baseline she was right arm paresthesia. She denies new neurologic symptoms since admission. Past Medical History Past Medical History: Diagnosis Date COPD (chronic obstructive pulmonary disease) ([facility] [place] Dental disease Myocardial infarction ([facility] [place]) Peptic ulceration Stroke ([facility] [place]) Visual impairment Past Surgical History: Procedure Laterality Date HYSTERECTOMY NECK SURGERY plates in neck Allergies Allergies Allergen Reactions Geodon [Ziprasidone Hcl] Seroquel [Quetiapine] Social History Social History Tobacco Use Smoking status: Never Smokeless tobacco: Never Vaping Use Vaping status: Never Used Substance Use Topics Alcohol use: Not Currently Alcohol/week: 12.0 standard drinks of alcohol Types: 4 Cans of beer, 8 Shots of liquor per week Comment: pt states she has not drank since 07/26/24 Drug use: Yes Types: Cocaine, Crack cocaine Family History Family History Problem Relation Age of Onset Drug abuse Mother Drug abuse Father REVIEW OF SYSTEMS: Review of Systems Eyes: Positive for visual disturbance (blurred vision). Neurological: Positive for numbness and headaches. Exam General appearance: Awake and alert, in no distress Cardiovascular: Chest: Appears unlabored Extremities: Unable to tell through limits of video visit Abdomen: No overt distention noted through limits of video visit Skin: No rashes or lesions noted. Neurological Examination: Patient evaluation done through video consult. Patient currently sitting up in bed. Alert oriented x4. Participates and follows commands during exam. Symmetric face. EOMs intact. Speech is intact forcomprehension and expression. There is no dysarthria or aphasia. Raises all 4 extremities antigravity with no drift. Patient performs kivuvr-vm-nlqz testing successfully. Limited neuro examination given the limitations of video unable to test reflexes or motor strength. Lab Review Imaging MRI brain: MRI cervical spine: Clinical Impression: Eduarda Porter is a 54 y.o. female with past medical history significant for polysubstance abuse, alcohol abuse, hypertension, bipolar disorder, CVA, GA, gastric ulcer, tardive dyskinesia, degenerativedisc disease, headaches and COPD whom presented to the ED regarding headache, described as worst headache of my life Noncontrast CT brain negative for acute intracranial process. Recommend completing CTA of the head due to thunderclap headache. Recommendations: Recommend CTA head Recommend outpatient follow up with neurosurgery, will send referral Continue PRN medications for headache, reports improvement in headache Continue neuro checks and vitals per policy Will continue to follow for imaging results Recommendations discussed with attending, Dr Schmitt, via phone call I, SACHI Leon CNP, assisted with documentation during the assessment of this patient. Pleasenote case was done in collaboration with: Dr Valiente I have spent 50 + mins personally reviewing previous history, imaging, and performing a face to face physical assessment on this patient. If you have any further questions please feel free to contact us. Thank you for asking us to be part of this patient's care. [id number] Teleneurology Consult This note is dictated with the use of M*Modal.Please note that this dictation was completed with computer voice recognition software. Quite often unanticipated grammatical, syntax, homophones, and other interpretive errors are inadvertently transcribed by the computer software. Please disregard these errors. Please excuse any errors that have escaped final proofreading. Consults Tele-Neurology Telemedicine Consult Note Consent Statement: I discussed risks, benefits, and alternatives of a real-time synchronous audiovisual consultation with the patient (and any accompanying persons) including the risks that the patient's personal health details and medical records will be discussed over real-time, synchronous, interactive video/audio/telecommunication technology, the visitwill not be recorded without the express consent of both the provider and the patient, and that there are some limitations compared to oivq-bx-nols evaluations. We elected to proceed. RAYMOND Azul 12/15/24 [id number] Evelin, Lashanda Murrieta, provided the documented services for this patient. I personally reviewed previous medical history, laboratory studies, neuroimaging, and completed a gitm-xl-bwuk physical assessment on this patient via live audio/ video camera. To the best of my ability, the assessment and plan was discussed with patient and bedside staff. - 54-year-old woman with past medical history mentioned above was admitted to a rehabilitation treatment program on 11/16/2024. She presented to the emergency department from the rehab facility with elevated blood pressure and severe headache. - Reports worst headache of her life, described as 10/10 in severity, affecting the back of her head, neck, and frontal regions. The headache was accompanied by blurry vision. - The headache has improved to 3-4/10 at the time of examination but persists along with blurry vision. - Patient reports tingling in her left hand - Patient reports blurry vision that worsened yesterday, describing it as extremely blurry more than ever and having difficulty focusing. She wears glasses but has not seen an eye doctor in approximately three years. - Investigations: CT brain was negative for acute intracranial findings. MRI cervical spine was completed which redemonstrated C5 and C6 (known to the patient, was supposed to follow with Neurosurgery but never did). Severe Headache with Blurry Vision Severe headache (initially 10/10, now 3-4/10) with blurry vision requiring further evaluation giventhe worst headache of life description. CTA head to rule out aneurysm Control blood pressure Okay to take Tylenol or Toradol for headache Avoid Triptan or DHE as the patient has prior history of CVA and myocardial infarction Cervical myelopathy (potentially explaining her left hand paresthesia) Continue gabapentin 600 mg TID Patient to follow with Neurosurgery/spine surgeon as outpatient. Patient expressed willingness to follow with [facility] in [place] May need EMG-NCV as outpatient Lashanda Murrieta MD MPH [facility] documented in this encounter Plan of Treatment Not on file documented as of this encounter Goals Goal Patient Goal Type Associated Problems Recent Progress Patient-Stated? Author DC to home General Yes Fallon Hathaway LSW Note: Evaluation of progress towards goal: In progress: DC to home today when her ride gets here. documented as of this encounter Visit Diagnoses Not on filedocumented in this encounter
--- OUTSIDE RECORDS SUMMARY | 2024-12-14 10:40 | XMS_ITS | Encounter Summary ---
Author Organization [email or web address] Sys [employer] Address [facility] [id number] [address] [place] [address] Care Team Providers Care Automatic Centrifugal Station Operator Name Role Phone Unavailable Primary Care Provider Unavailabl e Reason for Visit * Diagnostic Imaging (Routine) - Pending Review Specialty Diagnoses / Procedures Referred By Danielle duggan Referred To Contact Radiology Diagnoses Pain Procedures MR brain without contrast [facility] [address] [place] [id number] Phone: tel: fax: Referral ID Status Reason Start Date Expiration Date V isits Requested Visits Authorized [id number] Pending Review 12/15/2024 12/15/2025 1 1 Encounter Details Date Type Department Care Team (Late st Contact Info) Description 12/14/2024 10:40 AM EDT Ancillary Procedure [facility] [address] [place] [id number] Pain Social History Tobacco Use Types Packs/Day Years Used Date Smoking Tobacco: Never Smokeless Tobacco: Never Alcohol Use Standard Drinks/Week Comments Not Currently 12 (1 standard drink = 0.6 oz pure alcohol) pt states she has not drank since 07/26/[address] [facility] Utilities Answer Date Recorded In the past [...] Procedure Name Priority Date/Time Associated Diagnosis Comments MR BRAIN WO CONT Routine 12/14/2024 10:40 AM EDT Pain documented in this encounter Results * MR brain without contrast (12/14/2024 10:40 AM EDT) us Scanning Provider External IMG MRI ORDERABLES Fi nal Result documented in this encounter Visit Diagnoses Diagnosis Pain Generalized pain documented in this encounter
--- OUTSIDE RECORDS SUMMARY | 2024-12-14 11:10 | XMS_ITS | Encounter Summary ---
Author Organization [employer] Sys [employer] Address [id number] [address] [place] [address] Care Team Providers Care Public Relations Specialist Name Role Phone Unavailable Primary Care Provider Unavailabl e Reason for Visit * Diagnostic Imaging (Routine) - Pending Review Specialty Diagnoses / Procedures Referred By Danielle duggan Referred To Contact Radiology Diagnoses Pain Procedures MR cervical spine without contrast [facility] [place] [address] Phone: tel: fax: Referral ID Status Reason Start Date Expiration Date V isits Requested Visits Authorized [id number] Pending Review 12/15/2024 12/15/2025 1 1 Encounter Details Date Type Department Care Team (Late st Contact Info) Description 12/14/2024 11:10 AM EDT Ancillary Procedure [facility] [place] [address] Pain Social History Tobacco Use Types Packs/Day Years Used Date Smoking Tobacco: Never Smokeless Tobacco: Never Alcohol Use Standard Drinks/Week Comments Not Currently 12 (1 standard drink = 0.6 oz pure alcohol) pt states she has not drank since 07/26/24 [facility] Utilities Answer Date Recorded In the [...] Name Priority Date/Time Associated Diagnosis Comments MR CERVICAL SPINE WO CONT Routine 12/14/2024 11:10 AM EDT Pain documented in this encounter Results * MR cervical spine without contrast (12/14/2024 11:10 AM EDT) us Scanning Provider External IMG MRI ORDERABLES Fi nal Result documented in this encounter Visit Diagnoses Diagnosis Pain Generalized pain documented in this encounter
--- NOTE | 2024-12-14 11:59 | CM.NOTE ---
Called [facility] for recent medical records, received records and they were given to Dr. Lobato
[2024-12-14] MEDS: PANTOPRAZOLE SODIUM 40 MG VIAL IV (12:03)
[2024-12-14] MEDS: LOSARTAN POTASSIUM 25 MG TABLET PO (12:03)
[2024-12-14] MEDS: THIAMINE MONONITRATE (VIT B1) 100 MG TABLET PO (12:03)
[2024-12-14] MEDS: 0.9 % SODIUM CHLORIDE 1,000 ML 50 ML IV (12:05)
--- NOTE | 2024-12-14 12:18 | PM.IMHP1 ---
Internal Medicine - H&P: HPI History of Present Illness Chief complaint: CHEST PAIN SINUS JAZMIN Narrative: Please be aware I am seeing this patient for the first time today. She was accepted by the night time staff for admission under hospitalist service. This did resume seeing her today. I relayed on the history taking ROM: Patient at bedside, her chart as well as previous hospitalization for medical hospital as well as from the ED documentation. This is a 54 y.o female with past medical hx of polysubstance abuse currently in rehab for cocaine/alcohol detox, hypertension, bipolar disorder, chronic headache, hypertension, COPD, chronic neck pain with 2 neck surgeries in the past, did not follow-up for chronic pain with any surgeon, CVA with right-sided weakness, asthma, prediabetes, gastric ulcer, tardive dyskinesia, history of [place], presented to the ED with a chief complaint of headache, mention that her headache was the worst headache in her life also complained of chest achiness to the left side with no radiation referral. The patient states the pain is continuous not exacerbated by exertion, not associated with diaphoresis but states that she was nauseous at times. When I saw her as well as when she was in the room the patient was complaining of severe pain, global around her Head: Throbbing in nature radiating to her shoulders, stating that she has blurry vision. No tenderness on the chest wall on examination. Labs since admission were all nonrevealing at all. CT head done in the ER as well as MRI brain without contrast and on the floor were both negative troponin x 2 were both negative. EKG showing sinus bradycardia but no arrhythmias. Upon further review, she did have similar hospitalization in July 2024 and per Medicare where her heart rate was also 47, her neuroimaging were all negative. Neurointerventional at the time recommended against any further workup or management. Review of Systems ROS Status of ROS 10 or more systems reviewed and unremarkable except as noted in history and below [facility] Medical History (Updated 12/13/24 @ 20:19 by Priscila Hernandez RN) Hx of headache ?Z87.898 - Personal history of other specified conditions (ICD-10) HTN (hypertension) ?I10 - Essential (primary) hypertension (ICD-10) Asthma ?J45.909 - Unspecified asthma, uncomplicated (ICD-10) COPD (chronic obstructive pulmonary disease) ?J44.9 - Chronic obstructive pulmonary disease, unspecified (ICD-10) Prediabetes ?R73.03 - Prediabetes (ICD-10) Hx of drug abuse ?F19.11 - Other psychoactive substance abuse, in remission (ICD-10) Stomach ulcer ?K25.9 - Gastric ulcer, unspecified as acute or chronic, without hemorrhage or perforation (ICD-10) History of intestine removal ?Z90.49 - Acquired absence of other specified parts of digestive tract (ICD-10) Degenerative disc disease Tardive dyskinesia ?G24.01 - Drug induced subacute dyskinesia (ICD-10) Hx of myocardial infarction ?I25.2 - Old myocardial infarction (ICD-10) Hx of completed stroke ?Z86.73 - Personal history of transient ischemic attack (TIA), and cerebral infarction without residual deficits (ICD-10) Surgical History (Updated 12/13/24 @ 20:19 by Priscila Hernandez RN) Hx of hernia repair ?Z98.890 - Other specified postprocedural states (ICD-10) ?Z87.19 - Personal history of other diseases of the digestive system (ICD-10) Hx of tonsillectomy ?Z90.89 - Acquired absence of other organs (ICD-10) H/O: hysterectomy ?Z90.710 - Acquired absence of both cervix and uterus (ICD-10) Hx of neck surgery ?Z98.890 - Other specified postprocedural states (ICD-10) Family History (Updated 12/13/24 @ 20:19 by Priscila Hernandez RN) Mother Family history of cancer Family history of diabetes mellitus Social History (Updated 12/13/24 @ 20:20 by Priscila Hernandez RN) Within the past year, how often did you have a drink containing alcohol: never Score interpretation: A score less than 3 is consistent with normal alcohol consumption. Smoking status: Never smoker Non-prescribed substance use: former substance user Highest level of school completed/degree received: 9th grade Are you now , , , , never or living with a partner: never In a typical week, how many times do you talk on the telephone with family, friends, or neighbors: twice per week How often do you get together with friends or relatives: twice per week Little interest or pleasure in doing things: not at all Feeling down, depressed, or hopeless: not at all Feel stressed/tense/nervous/anxious/difficulty sleeping: only a little Do you think of yourself as: lesbian/vent[place]/homosexual Gender Identity: female Meds Home Medications and Allergies Home Medications ?Medication ?Instructions ?Recorded ?Confirmed ?Type acetaminophen 500 mg capsule 500 mg PO BID PRN fever or pain 12/13/24 12/13/24 History deutetrabenazine 30 mg 30 mg PO DAILY 12/13/24 12/13/24 History tablet,extended release 24 hr (Austedo XR) diphenhydramine HCl 25 mg capsule 25 mg PO Q8H PRN allergy symptoms 12/13/24 12/13/24 History (Benadryl) hydroxyzine HCl 25 mg tablet 25 mg PO Q6H PRN anxiety 12/13/24 12/13/24 History ibuprofen 800 mg tablet 800 mg PO BID 12/13/24 12/13/24 History lumateperone 42 mg capsule 42 mg PO DAILY 12/13/24 12/13/24 History (Caplyta) melatonin 10 mg capsule 10 mg PO DAILY 12/13/24 12/13/24 History mirtazapine 7.5 mg tablet 7.5 mg PO DAILY 12/13/24 12/13/24 History naltrexone 50 mg tablet 50 mg PO DAILY 12/13/24 12/13/24 History polyethylene glycol 3350 17 17 g PO DAILY 12/13/24 12/13/24 History gram/dose oral powder (Miralax) sertraline 100 mg tablet (Zoloft) 100 mg PO DAILY 12/13/24 12/13/24 History Allergies Allergy/AdvReac Type Severity Reaction Status Date / Time aspirin Allergy Unknown Verified 12/13/24 16:03 Penicillins Allergy Unknown Verified 12/13/24 16:03 quetiapine (From Seroquel) Allergy Unknown Verified 12/13/24 16:03 ziprasidone (From Geodon) Allergy Unknown Verified 12/13/24 16:03 Exam Narrative Exam Narrative: General: The patient appears well but in pain. Not in acute distress Skin: Warm, dry, no pallor noted. There is no rash noted. Head: Normocephalic, atraumatic Eye: Normal conjunctiva, no drainage, EOMI. PERRL Ears, Nose, Mouth, and Throat: oral mucosa is moist. Nares patent. Mouth without vesicles. Ear canals patent. Tm's without Erythema Cardiovascular: Regular Rate and Rhythm Respiratory: Patient is in no distress, no accessory muscle use, lungs are clear to auscultation, no wheezing, rales or rhonchi, no chest wall tenderness Back: non-tender, no CVA tenderness bilaterally to percussion. GI: Normal bowel sounds, no tenderness to palpation, no masses appreciated. No rebound, guarding, or rigidity noted. Musculoskeletal: The patient has no evidence of calf tenderness, no pitting edema, symmetrical pulses noted bilaterally Neurological: A&O x4, normal speech, no focal deficits, tardive dyskinesia, moving all extremities Constitutional Vital Signs, click to edit/add: Last Vital Signs Temp 98.6 F 12/14/24 12:11 Pulse 45 L 12/14/24 12:11 Resp 18 12/14/24 12:11 BP 159/84 H 12/14/24 12:11 Pulse Ox 97 12/14/24 12:11 O2 Del Method Room Air 12/14/24 12:11 Internal Medicine - H&P: Reslt Labs Labs: Short CBC 12/13/24 12/14/24 Range/Units 17:25 06:04 WBC 5.8 8.5 (4.0-11.0) 10^3/uL Hgb 12.9 14.0 (12.0-16.0) g/dL Hct 38.2 41.0 (36.0-48.0) % Plt Count 254 268 (150-450) 10^3/uL BMP 12/13/24 12/14/24 17:25 06:04 Sodium 140 143 Potassium 3.8 4.2 Chloride 104 107 Carbon Dioxide 30.4 27.0 BUN 14.0 16.0 Creatinine 0.92 0.94 Glucose 85 131 H Calcium 8.8 9.0 Liver Function 12/13/24 Range/Units 17:25 Total Bilirubin 0.1 L (0.2-1.0) mg/dL AST 27 (15-37) U/L ALT 47 (14-59) U/L Alkaline Phosphatase 164 H (46-116) U/L Albumin 3.4 (3.4-5.0) g/dL Urine 12/14/24 Range/Units 05:39 Urine Color Red A (YELLOW) Urine Clarity Clear (CLEAR) Urine pH 6.0 (5.0-9.0) Ur Specific [place] 1.025 (1.005-1.025) Urine Protein Negative (NEG/TRACE) mg/dL Urine Glucose (UA) 250 A (NEGATIVE) mg/dL Assessment and Plan Assessment and Plan (1) Bradycardia, sinus: (2) Headache: (3) HTN (hypertension): (4) Asthma: (5) COPD (chronic obstructive pulmonary disease): (6) Prediabetes: (7) Hx of drug abuse: (8) Stomach ulcer: Plan Severe headache, Likely Migraine in etiology Component of hypertensive urgency Chest pain, likely in the setting of anxiety Withdrawal from alcohol is suspected Hx of polysubstance use, urine toxicology is negative -Pt already admitted to the medsurg unit under hospitalist service -Start IV ketorolac 15 mg q8 hours PRN -Started CIWA protocol -Consulted Neurology and Cardiology -I spoke to Dr. Reid, fourdrinier tender bone glue maker, recommended Echo which I already ordered, I shared with him the EKG and discussed the pt's clinical picture and pt's past medical hx, he recommended blood pressure control, unfortunately labetalol is not an option given pt's bradycardia. He agrees with losartan to be started. No indication for further intervention, in terms of anticoagulation or LHC. -MR brain without contrast negative -Ordered MR Cervical spine without contrast -ESR and CRP are not significant -I am trying to avoid opioids given pt's complicated substance use disorder -QTc was 377 msec, added zofran -Continue with tylenol PO -Started Losartan 25 mg PO daily -Normal Saline 50 ml/hr for a total of 1 liter -I discussed the plan with the pt at bedside. -Also, discussed the plan of management with nursing team
[2024-12-14 13:17] LABS: Troponin I High Sensitivity 7.3 pg/mL (4.0-51.3)
--- NOTE | 2024-12-14 13:26 | CA_ITS ---
Patient Name: STEPHEN ABERNATHY MR#: [id number] : 1970 Exam Date: 12/14/2024 Ordering Doctor: REZA DARNELL ECHOCARDIOGRAM REPORT PROCEDURE: CA ECHO LIMITED INDICATIONS: Chest pain, h/o OK, COPD, hypertension COMPARISON: None. DESCRIPTION: Limited ECHOCARDIOGRAM Real-time transthoracic echocardiography with 2D and M-mode performed. QUALITY: Technical quality was good. Limited echocardiogram per physician order. LEFT VENTRICLE: Normal chamber size. Proximal septal hypertrophy (sigmoid septum). Normal systolic function. Estimated left ventricular ejection fraction is 65-70 %. LV EF: Normal left ventricular ejection fraction, (>55%). DIASTOLIC: ATRIAL SEPTUM: LEFT ATRIUM: Mild dilatation. RIGHT ATRIUM: Normal chamber size. RIGHT VENTRICLE: Normal chamber size. Normal systolic function. TRICUSPID VALVE: Normal mobility and thickness. MITRAL VALVE: Normal mobility and thickness. There is no mitral annular calcification. AORTIC VALVE: Normal trileaflet appearance. No visible sclerosis. Normal leaflet mobility. No stenosis. AORTIC ROOT: Normal diameter and appearance, measuring 3.4 cm. PULMONIC VALVE: Normal thickness and mobility. PERICARDIUM: No evidence of pericardial effusion. IVC: Collapses with inspiration. IVC is normal in size. PLEURA: CONCLUSION: 1. Normal ventricular size and systolic function. LVEF is estimated at 65 to 70%. 2. No pericardial effusion. 3. Limited study performed with no Doppler interrogation as requested. Adult Echocardiography Procedure Report Left Ventricle LVEDD (3.7 - 5.6 cm): 4.58 cm LVESD (2.2 - 4.0 cm): 2.45 cm LVIVS thickness (0.6 - 1.2 cm): 1.14 cm LVPW thickness (0.5 - 1.0 cm): 0.94 cm LVOT Diameter 2.23 cm Left Ventricular Ejection Fraction: 65-70 % Left Atrium LA Volume Index (2D A2C): 35.20 ml/m2 Left Atrium Systolic Dimension: 3.27 cm Mitral Valve Right Ventricle Aorta AO Root Diam: 3.41 cm Aortic Valve Tricuspid Valve Pulmonic Valve Right Atrium Right Atrium Systolic Pressure: 62.76 ml, 62.76 ml Dictated by: Everton Hope M.D. on 12/14/2024 at 21:38 Approved by: Everton Hope M.D. on 12/14/2024 at 21:41
--- OUTSIDE RECORDS SUMMARY | 2024-12-14 15:20 | XMS_ITS | Encounter Summary ---
Author Organization [facility] Address [id number] [address] [place] [address] Care Team Providers Care Senior Qa Engineer Name Role Phone Unavailable Primary Care Provider Unavailabl e Encounter Details Date Type Department Care Team (Late st Contact Info) Description 12/14/2024 3:20 PM EDT Ancillary Procedure [facility] [employer] [address] [place] [address] Pain Social History Tobacco Use Types Packs/Day Years Used Date Smoking Tobacco: Never Smokeless Tobacco: Never Alcohol Use Standard Drinks/Week Comments Not Currently 12 (1 standard drink = 0.6 oz pure alcohol) pt states she has not drank since 07/26/24 [facility] Utilities Answer Date Recorded In the past 12 months has [facility] electric, gas, oil, or water company threatened [...] Procedure Name Priority Date/Time Associated Diagnosis Comments NON [facility] E[facility] Routine 12/14/2024 3:20 PM EDT Pain documented in this encounter Results * Non [facility] (12/14/2024 3:20 PM EDT) us Scanning Provider External CV ECHO ORDERABLES Fi nal Result XCELERA documented in this encounter Visit Diagnoses Diagnosis Pain Generalized pain documented in this encounter
[2024-12-14] MEDS: DIPHENHYDRAMINE HCL 25 MG CAPSULE PO (22:47)
[2024-12-15] VITALS (16 sets, daily range): BP systolic 147–170; BP diastolic 69–92; PULSE 44–63; TEMP 36.8–37.1; O2SAT 95–98; BMI 30.2
[2024-12-15 05:09] LABS: Basophils Percent Auto 0.4 % (0.2-2.0); Eosinophils Absolute Auto 0.1 10^3/uL (0.0-0.7); Eosinophils Percent Auto 0.6 % (0.9-7.0); Hematocrit 39.2 % (36.0-48.0); Hemoglobin 13.1 g/dL (12.0-16.0); Immature Granulocytes Abs Auto 0.03 10^3/uL (0.00-0.03); Immature Granulocytes Pct Auto 0.3 % (0.0-0.5); Mean Corpuscular HGB Conc 33.4 g/dL (29.9-35.2); Mean Corpuscular Hemoglobin 29.8 pg (26.7-34.0); Mean Corpuscular Volume 89.1 fL (81.0-99.0); Mean Platelet Volume 9.5 fL (9.5-13.5); Monocytes Absolute Auto 0.8 10^3/uL (0.3-0.8); Neutrophils Absolute Auto 6.9 10^3/uL (1.4-6.5); Neutrophils Percent Auto 63.7 % (43.0-75.0); Platelet Count 242 10^3/uL (150-450); Red Cell Distribution Width 13.2 % (11.0-15.0); White Blood Count 10.8 10^3/uL (4.0-11.0)
[2024-12-15 05:35] LABS: Alanine Aminotransferase 39 U/L (14-59); Albumin Globulin Ratio 0.8; Albumin Level 3.2 g/dL (3.4-5.0); Alkaline Phosphatase 157 U/L (46-116); Anion Gap 11.2; Aspartate Amino Transferase 14 U/L (15-37); BUN Creatinine Ratio 17.7; Bilirubin Total 0.2 mg/dL (0.2-1.0); Calcium 8.9 mg/dL (8.5-10.1); Carbon Dioxide 28.6 mmol/L (21.0-32.0); Chloride 105 mmol/L (98-107); Estimated GFR (African America >60 (>=60 mL/min/1.73m^2); Estimated GFR (Non-African Ame >60 (>=60 mL/min/1.73m^2); Globulin 4.2 g/dL; Glucose 98 mg/dL (74-106); Potassium 3.8 mmol/L (3.5-5.1); Sodium 141 mmol/L (136-145); Total Protein 7.4 g/dL (6.4-8.2)
[2024-12-15] MEDS: KETOROLAC TROMETHAMINE 30 MG/ML VIAL 15 MG IVP ×2 (06:12→13:00)
[2024-12-15] MEDS: MULTIVITAMIN TABLET 1 TAB PO (08:30)
[2024-12-15] MEDS: THIAMINE MONONITRATE (VIT B1) 100 MG TABLET PO (08:30)
[2024-12-15] MEDS: LOSARTAN POTASSIUM 25 MG TABLET PO (08:30)
[2024-12-15] MEDS: SERTRALINE HCL 100 MG TABLET PO (08:30)
[2024-12-15] MEDS: POLYETHYLENE GLYCOL 3350 17 GM POWDER PACKET PO (08:31)
[2024-12-15] MEDS: PANTOPRAZOLE SODIUM 40 MG VIAL IV (08:31)
[2024-12-15] MEDS: FOLIC ACID 1 MG TABLET PO (08:31)
--- NOTE | 2024-12-15 12:21 | CM.NOTE ---
Rounds made with Dr. Schmitt. Eduarda states numbness and tingling in hands and questions why. Dr. Schmitt reviews CT findings with Eduarda and BP findings. Neurology Consult today.
--- NOTE | 2024-12-15 15:41 | CT_ITS ---
[address] [address] Patient Name: STEPHEN ABERNATHY MRN: [id number] date: 1970 Sex: F Assigned Patient Location: [place] Current Patient Location: [place] Accession/Order Number: [id number] Exam Date: 12/15/2024 17:00 Report Date: 12/15/2024 17:06 At the request of: REZA DARNELL MD Procedure: CT angio head CT angio head 12/15/2024 4:40 PM SIGNS AND SYMPTOMS: ^Headache, blurred vision, eye pain CONTRAST: 100 mL of intravenous Omnipaque 350 TECHNIQUE: Multi-detector CT angiography axial slices of the head were obtained during intravenous administration of IV contrast material. Sagittal, coronal, and 3-D reconstructions were performed and viewed on a separate workstation. CT was performed with one or more of the following dose reduction techniques: Automated exposure control, adjustment of the mA and/or kV according to patient size, or use of iterative reconstruction technique. Stenoses were measured using the NASCET criteria. COMPARISON: 12/14/2024 FINDINGS: The superior cerebellar arteries, posterior inferior cerebellar arteries, and the basilar artery are within normal limits. The posterior cerebral arteries are unremarkable. The intracranial segments of the internal carotid arteries are within normal limits. There are normal anterior and middle cerebral arteries. Anterior communicating artery is patent. Posterior communicating arteries are present. The deep venous system and dural venous systems appear to be patent. No bony abnormalities are appreciated. There is polypoid mucosal thickening in the maxillary sinuses. CT/CT angio head IMPRESSION: No evidence of focal stenosis, aneurysmal dilatation, dissection or occlusion. There is polypoid mucosal thickening in the maxillary sinuses. Impression dictated by: Henrique Rodriguez M.D. 12/15/2024 5:06 PM Dictation Location: [place] [address] Electronically authenticated by: [id number] Y Date: 12/15/2024 17:06
--- NOTE | 2024-12-15 15:46 | P.IMPN_ITS ---
Progress Note: A&P Assessment and Plan (1) Bradycardia, sinus: (2) Headache: (3) HTN (hypertension): (4) Asthma: (5) COPD (chronic obstructive pulmonary disease): (6) Prediabetes: (7) Hx of drug abuse: (8) Stomach ulcer: Plan Severe headache, Likely Migraine in etiology Component of hypertensive urgency Chest pain, likely in the setting of anxiety Withdrawal from alcohol is suspected Hx of polysubstance use, urine toxicology is negative -Pt already admitted to the medsurg unit under hospitalist service -Start IV ketorolac 15 mg q8 hours PRN -Started CIWA protocol -Consulted Neurology and Cardiology -I spoke to Dr. Reid, complex case manager sound controller, recommended Echo which I already ordered, I shared with him the EKG and discussed the pt's clinical picture and pt's past medical hx, he recommended blood pressure control, unfortunately labetalol is not an option given pt's bradycardia. He agrees with losartan to be started. No indication for further intervention, in terms of anticoagulation or LHC. -MR brain without contrast negative -Ordered MR Cervical spine without contrast -ESR and CRP are not significant -I am trying to avoid opioids given pt's complicated substance use disorder -QTc was 377 msec, added zofran -Continue with tylenol PO -Started Losartan 25 mg PO daily -Normal Saline 50 ml/hr for a total of 1 liter -I discussed the plan with the pt at bedside. -Also, discussed the plan of management with nursing team 12/15/2024 patient appears to be less pain today and the pain is better controlled. She still thinks that the pain is due to her neck. Her MRI of thoracic spine was reviewed with her as well. I spoke to neurology team from [facility], they recommended a CTA of the head and recommended neurosurgery outpatient follow-up. Patient is already on acetaminophen as needed and ketorolac as needed. I will stop the ketorolac as this may cause MAGNOLIA and barry dillon ulcer. I will continue with acetaminophen. Unfortunately the patient's headache is likely due to her neck pathology. Appreciate neurology workup. I will discharge the patient tomorrow if the patient and pain continue to improve and the CT brain is not significant. I discussed the plan with the patient I answered all her questions. Internal Medicine - PN: Subj Subjective Interval history: Patient seen and examined at bedside. States her headache is better. Still complain of neck pain. She was seen by neurology and appreciate their recommendations. Labs reviewed. Exam Narrative Exam Narrative: General: She is in less pain than yesterday Skin: Warm, dry, no pallor noted. There is no rash noted. Head: Normocephalic, atraumatic Eye: Normal conjunctiva, no drainage, EOMI. PERRL Ears, Nose, Mouth, and Throat: oral mucosa is moist. Nares patent. Mouth without vesicles. Ear canals patent. Tm's without Erythema Cardiovascular: Regular Rate and Rhythm Respiratory: Patient is in no distress, no accessory muscle use, lungs are clear to auscultation, no wheezing, rales or rhonchi, no chest wall tenderness Back: non-tender, no CVA tenderness bilaterally to percussion. GI: Normal bowel sounds, no tenderness to palpation, no masses appreciated. No rebound, guarding, or rigidity noted. Musculoskeletal: The patient has no evidence of calf tenderness, no pitting edema, symmetrical pulses noted bilaterally Neurological: A&O x4, normal speech, no focal deficits, tardive dyskinesia, moving all extremities Constitutional Vital Signs, click to edit/add: Last Vital Signs Temp 98.3 F 12/15/24 07:48 Pulse 51 L 12/15/24 15:44 Resp 16 12/15/24 12:34 BP 147/78 H 12/15/24 12:34 Pulse Ox 97 12/15/24 12:34 O2 Del Method Room Air 12/15/24 12:34 Internal Medicine - PN: Obj Da Labs Labs: Laboratory Results - last 24 hr 12/15/24 04:42 WBC 10.8 RBC 4.40 Hgb 13.1 Hct 39.2 MCV 89.1 MCH 29.8 MCHC 33.4 RDW 13.2 Plt Count 242 MPV 9.5 Neut % (Auto) 63.7 Lymph % (Auto) 28.0 [place] % (Auto) 7.0 Eos % (Auto) 0.6 L Baso % (Auto) 0.4 Neut # (Auto) 6.9 H Lymph # (Auto) 3.0 [place] # (Auto) 0.8 Eos # (Auto) 0.1 Baso # (Auto) 0.0 Abs Immat Gran (auto) 0.03 Imm/Tot Granulo (auto) 0.3 Sodium 141 Potassium 3.8 Chloride 105 Carbon Dioxide 28.6 Anion Gap 11.2 BUN 14.0 Creatinine 0.79 Est GFR ( Amer) >60 Est GFR (Non-Af Amer) >60 BUN/Creatinine Ratio 17.7 Glucose 98 Calcium 8.9 Magnesium 2.0 Total Bilirubin 0.2 AST 14 L ALT 39 Alkaline Phosphatase 157 H Total Protein 7.4 Albumin 3.2 L Globulin 4.2 Albumin/Globulin Ratio 0.8
[2024-12-15] MEDS: ACETAMINOPHEN 500 MG TABLET PO (22:16)
[2024-12-15] MEDS: DIPHENHYDRAMINE HCL 25 MG CAPSULE PO (22:16)
[2024-12-15] MEDS: MIRTAZAPINE 15 MG TABLET 7.5 MG PO (22:17)
[2024-12-16] VITALS (37 sets, daily range): BP systolic 92–225; BP diastolic 53–115; PULSE 43–73; TEMP 36.2–36.9; O2SAT 94–99
--- NOTE | 2024-12-16 02:07 | ECG_ITS ---
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 Measurements Intervals [place] Rate: 41 P: 66 IN: 195 QRS: 30 QRSD: 84 T: 73 QT: 438 QTc: 363 Interpretive Statements SINUS BRADYCARDIA NONSPECIFIC T-WAVE ABNORMALITY Abnormal ECG Compared to ECG 12/14/2024 05:53:32 No significant changes Electronically Signed On 12-16-2024 19:48:23 EDT by PLACIDO GIVENS M.D.
[2024-12-16 02:13] LABS: Glucometer 91 mg/dL (74-106)
[2024-12-16] MEDS: HYDRALAZINE HCL 20 MG/ML VIAL 10 MG IVP (02:19)
[2024-12-16] MEDS: NALOXONE HCL 0.4 MG/ML VIAL IV (02:38)
--- NOTE | 2024-12-16 02:47 | PM.EN ---
Event Note Event Note: 0207 -- Contacted re: patient had sudden decreased level of consciousness. Nursing report the patient had bradycardia with heart rate down to 30s on telemetry monitoring. Nurse noted patient unable to talk and is unresponsive . Vital signs: hypertensive with BP 191/94, Temp (oral) 97.6, Temp (recta) 97.1, HR 67, RR 16, O2 sat 96%. Blood glucose 91. Pupils equal and reactive. Patient had voided. ED MD called to bedside. Discussed case with ED MD. Reportedly, patient arouses to sternal rub with opening of eyes, but very lethargic. Reviewed medications and concern noted for possible reaction to Remeron given listed allergy to seroquel, geodon. Of note, patient takes Remeron at home, which had been continued from home medication list. Narcan 0.4 mg IV x1 ordered and given with mild improvement of neuro status. Patient opening eyes, following simple commands, equal hand grasp, positive gag. STAT CT head/brain WO, EKG, Troponin, CBC BMP, Magnesium, UDS, VBG ordered. Discontinued remeron, benadryl. Requested consult with teleneuro. Neuro checks, seizure precautions ordered. Case staffed with Dr. Bonds, attending hospitalist as well.
--- NOTE | 2024-12-16 03:13 | PC.NURSE ---
athletic monitor notified RN of low heart rate, RN arrived to assess the patient. patient found unresponsive, diaphoretic, twitching. 0202 vital signs wer 191/94, 97.7 (oral), 47, 16, 96%, 97.1 (rectal), blood sugar 91. 0207 225/115, 44 0209 doctor marker in room to assess. patient's right side was diaphoretic, cool to touch. no verbal response but patient moving hands, eyelids, head and chin. 0211 respiratory in room completing EKG which showed sinus yokasta. 220/100, 96% room air, 42. patient sticking out tongue on command, will not squeeze hand, tried to smile, and attempting to speak but unable to. 0219 hydralazine 10mg IVP given. 22g in left upper arm placed by doctor marker. 0230 156/81, 49, 97% 0238 narcan 0.4mg IVP given. 0240 149/79, 47, 96%, 12. patient had intentional head nods, was squeezing hands, but still no verbal response. [address] 0300 patient moved to step down status and report was given to Keyla ROBERTSON.
[2024-12-16] MEDS: ONDANSETRON PF 4 MG/2 ML VIAL 2 MG IV ×2 (03:26→15:26)
[2024-12-16 04:11] LABS: PCO2 VBG 43.7 mmHg (40.0-52.0); pH VBG 7.421 (7.330-7.430)
[2024-12-16 04:26] LABS: Amphetamine Screen Urine NEGATIVE (NEGATIVE); Barbiturates Screen Urine NEGATIVE (NEGATIVE); Benzodiazepines Screen Urine NEGATIVE (NEGATIVE); Buprenorphine Screen Urine NEGATIVE (NEGATIVE); Cannabinoid Screen Urine NEGATIVE (NEGATIVE); Cocaine Screen Urine NEGATIVE (NEGATIVE); Methadone Screen Urine NEGATIVE (NEGATIVE); Methamphetamines Screen Urine NEGATIVE (NEGATIVE); Opiate Screen Urine NEGATIVE (NEGATIVE); Oxycodone Screen Urine NEGATIVE (NEGATIVE); Phencyclidine Screen Urine NEGATIVE (NEGATIVE); Tricyclic Antidepressant Urine NEGATIVE (NEGATIVE)
[2024-12-16 04:33] LABS: Troponin I High Sensitivity 5.6 pg/mL (4.0-51.3)
[2024-12-16] MEDS: ACETAMINOPHEN 1,000 MG/100 ML PREMIX 400 MG IV (05:31)
[2024-12-16] MEDS: PROCHLORPERAZINE 10 MG/2 ML VIAL IV (05:31)
[2024-12-16 06:16] LABS: Basophils Absolute Auto 0.1 10^3/uL (0.0-0.1); Basophils Percent Auto 1.2 % (0.2-2.0); Eosinophils Absolute Auto 0.2 10^3/uL (0.0-0.7); Eosinophils Percent Auto 3.8 % (0.9-7.0); Hematocrit 41.9 % (36.0-48.0); Hemoglobin 14.2 g/dL (12.0-16.0); Immature Granulocytes Abs Auto 0.02 10^3/uL (0.00-0.03); Immature Granulocytes Pct Auto 0.3 % (0.0-0.5); Lymphocytes Absolute Auto 1.6 10^3/uL (1.2-3.8); Lymphocytes Percent Auto 27.7 % (20.5-60.0); Mean Corpuscular HGB Conc 33.9 g/dL (29.9-35.2); Mean Corpuscular Hemoglobin 30.1 pg (26.7-34.0); Mean Corpuscular Volume 88.8 fL (81.0-99.0); Mean Platelet Volume 9.2 fL (9.5-13.5); Monocytes Absolute Auto 0.6 10^3/uL (0.3-0.8); Monocytes Percent Auto 9.7 % (1.7-12.0); Neutrophils Absolute Auto 3.4 10^3/uL (1.4-6.5); Neutrophils Percent Auto 57.3 % (43.0-75.0); Platelet Count 249 10^3/uL (150-450); Red Blood Count 4.72 10^6/uL (4.20-5.40); Red Cell Distribution Width 13.2 % (11.0-15.0); White Blood Count 5.9 10^3/uL (4.0-11.0)
--- NOTE | 2024-12-16 06:30 | P.PN_ITS ---
Progress Note: Subjective Subjective Interval history: Patient awakens but can tell is not fully awake, patient very lethargic, seems improved from last night but mental status appears to be waxing and waning Exam Constitutional Vital Signs, click to edit/add: Last Vital Signs Temp 97.1 F L 12/16/24 04:00 Pulse 43 L 12/16/24 04:00 Resp 18 12/16/24 04:00 BP 145/86 H 12/16/24 04:00 Pulse Ox 94 L 12/16/24 04:00 O2 Del Method Room Air 12/16/24 04:00 Documenting provider has reviewed patient's vital signs: yes Common normals: apparent distress (Sedated) Chest Common normals: inspection of chest normal and palpation of chest normal Respiratory Common normals: normal respiratory effort, no retractions and clear to auscultation bilaterally Effort & inspection: decreased respiratory effort Cardio Common normals: regular rate, regular rhythm and no murmurs GI Common normals: Normal to inspection, nondistended, normoactive bowel sounds present Extremity Common normals: normal to inspection, normal capillary refill and no clubbing, cyanosis or edema Neuro Common normals: CN's II-XII intact bilaterally, moves all extremities and no focal motor deficits (With diffuse weakness 2-3/5 strength in esthetician spa strength) Progress Note: Objective Labs Labs: Short CBC 12/16/24 Range/Units 06:10 WBC 5.9 (4.0-11.0) 10^3/uL Hgb 14.2 (12.0-16.0) g/dL Hct 41.9 (36.0-48.0) % Plt Count 249 (150-450) 10^3/uL Progress Note: A&P Assessment and Plan (1) Bradycardia, sinus: (2) Headache: (3) HTN (hypertension): (4) Asthma: (5) COPD (chronic obstructive pulmonary disease): (6) Prediabetes: (7) Hx of drug abuse: (8) Stomach ulcer: Plan Altered mental status-consult to telemetry stroke team, blood cultures are pending, start patient on IV antibiotics she does have positive urinalysis Bradycardia, sinus:-Continue to monitor, check thyroid Headache: Persisting but improved, more frontal With neuro HTN (hypertension): Improved Asthma, COPD (chronic obstructive pulmonary disease):-No cough throughout the evaluation, maintain current treatment plan Hx of drug abuse:-Close from clear mental status, some concern for possible bacteremia-no murmur, blood culture pending, started IV antibiotics Stomach ulcer: Protonix Evidence for acute UTI with abnormal urinalysis-check, started on antibiotics Elevated liver function test likely related to drug abuse-improved today, check ammonia level Duwmmgzeigtzx-grdgqsg-tefqakam Admission status: With acute alteration in mental status, concern for possible sepsis, bacteremia at least, start antibiotics, medically necessary treatment will span 2 midnights. Inpatient status
[2024-12-16 06:42] LABS: Lactate/Lactic Acid 1.6 mmol/L (0.4-2.0)
[2024-12-16 06:49] LABS: Alanine Aminotransferase 35 U/L (14-59); Albumin Globulin Ratio 0.8; Albumin Level 3.3 g/dL (3.4-5.0); Alkaline Phosphatase 138 U/L (46-116); Anion Gap 11.8; Aspartate Amino Transferase 15 U/L (15-37); BUN Creatinine Ratio 27.4; Bilirubin Total 0.2 mg/dL (0.2-1.0); Calcium 8.9 mg/dL (8.5-10.1); Carbon Dioxide 28.1 mmol/L (21.0-32.0); Chloride 104 mmol/L (98-107); Estimated GFR (African America >60 (>=60 mL/min/1.73m^2); Estimated GFR (Non-African Ame >60 (>=60 mL/min/1.73m^2); Glucose 105 mg/dL (74-106); Magnesium 1.9 mg/dL (1.8-2.4); Potassium 3.9 mmol/L (3.5-5.1); Sodium 140 mmol/L (136-145); Total Protein 7.3 g/dL (6.4-8.2)
--- NOTE | 2024-12-16 08:39 | CM.NOTE ---
Rounds made with Dr. Crowe, pt arouses easily this AM. Discussed with pt about CT scan and need for teleneuro consult for further recommendations. No discharge today.
[2024-12-16] MEDS: PANTOPRAZOLE SODIUM 40 MG VIAL IV (08:49)
[2024-12-16] MEDS: 0.9 % SODIUM CHLORIDE 1,000 ML 1000 ML IV (09:24)
[2024-12-16] MEDS: LEVOFLOXACIN IN DEXTROSE 5 % 750 MG/150 ML PREMIX 100 MG IV (09:26)
[2024-12-16 09:53] LABS: Ammonia 27 umol/L (11-32)
--- OUTSIDE RECORDS SUMMARY | 2024-12-16 10:02 | XMS_ITS | Clinical Summary ---
Author Organization [facility] [place] [address] Care Team Providers Care Relish Blender Name Role Phone Joe Marte MD Primary Care Provider [phone] Allergies Active Allergy Reactions Criticality Noted Date Comments Aripiprazole Other - comment required High 01/04/2009 weird reaction. , jaw twitched Aspirin Other - comment required High 05/07/2006 Pt states her mother told her she was allergic Doesn't know Ziprasidone Hcl Other - comment required Medium 12/27/2014 Made me feel weird Paliperidone Other - comment required Medium 10/13/2010 Mouth twitches Escitalopram Oxalate Other - comment required Medium 12/27/2014 Causes forgetfulness Penicillin G Other - comment required Low 05/07/2006 Doesn't know Quetiapine Fumarate Other - comment required Medium 01/04/2009 weird reaction , muscle tightness in legs Medications gabapentin (NEURONTIN) 300 mg capsuleIndicat ions:Neuropath ic Pain Take 1 Cap by mouth three times a day 90 Cap 06/09/20 23 Active lisinopriL (PRINIVIL,ZEST RIL) 10 mg tabletIndicati ons:hypertensi on Take 1 Tab by mouth daily 30 Tab 06/09/20 23 Active hydrOXYzine HCL (ATARAX) 50 mg tabletIndicati ons:anxiety Take 1 Tab by mouth two times a day as needed Take as needed for anxiety 14 Tab 06/09/20 23 Active paliperidone palmitate (INVEGA SUSTENNA) 156 mg/mL IM injectionIndic ations:Schizoa ffective Disorder Inject 1 mL intramuscularly every 30 days at 7:30am Pt received first loading dose of Invega Sustenna 234mg IM on 06/06/2023 and second loading dose of 156mg IM on 06/09/23. Next maintenance dose of Invega Sustenna due approximately 07/07/2023 07/07/19 24 Active Active Problems Problem Noted Date Diagnosed Date Major depressive disorder, recurrent 06/17/2023 Drug overdose of undetermined intent, subsequent encounter 06/12/2023 Suicidal ideation 06/03/2023 Intractable nausea and vomiting 03/15/2023 Generalized postprandial abdominal pain 03/15/20 Epigastric abdominal pain 03/06/2023 S/P hernia repair 02/20/2023 Hiatal hernia 02/20/2023 Schizoaffective disorder 09/07/2020 Depression 04/22/2018 Dyskinesia, drug-induced 04/22/2018 Overview (04/22/2018): Chronic involuntary movements, diffuse but predominantly oromandibular. prob 2ary to past antipsychotic drugs &/or cocaine Psychotic disorder 12/29/2017 Severe episode of recurrent major depressive disorder, with psychotic features 07/11/2017 Suicidal behavior with attempted self-injury Alcohol abuse 07/09/2017 Chronic posttraumatic stress disorder 01/05/2016 History of borderline personality disorder 01/04 Generalized anxiety disorder 01/05/2016 UTI (urinary tract infection) 12/29/2015 Epigastric pain 06/22/2015 Essential hypertension 06/22/2015 Suprapubic pain 05/23/2015 Chest pain 05/22/2015 Elevated BP 05/22/2015 Acute headache 12/30/2014 Overview (12/30/2014): Acute headache associated with blood pressure spike. Substance induced mood disorder 12/27/2014 Cocaine-induced mood disorder 10/25/2014 Overview (01/05/2016): Continuous chronic cocaine use prevents more specific diagnosis Depressive mood typically during periods of withdrawal from Cocaine use. Differential includes other specified depressive disorder, unspecified depressive disorder, MDD recurrent Cocaine use disorder, severe, dependence 015 Overview (10/25/2014): 25-30 yr hx cocaine use, 25-30 yr hx hallucinations Ectopic 05/25/2014 Asthma 12/13/2013 Cervicalgia 10/07/2012 CRPS (complex regional pain syndrome) 08/07/2012 Acute dystonia due to drugs(333.72) 07/16/2011 Cervical myelopathy 10/24/2010 DDD (degenerative disc disease), cervical 2010 Cervical herniated disc 10/24/2010 Essential hypertension, benign 10/24/2010 Myocardial infarct, old 10/24/2010 Dystonia, acute, due to drugs 10/24/2010 Cervical stenosis of spinal canal 2010 Resolved Problems Problem Noted Date Diagnosed Date Resolved Date Malingering 06/23/2015 01/05/2016 Left upper arm pain 05/22/2015 01/05/20 16 Nausea in adult 05/22/2015 01/05/2016 Cocaine abuse 05/22/2015 01/05/2016 Bipolar disorder with depression 01/04/2015 01/05/2016 Suicidal ideation 10/20/2014 01/05/2016 Borderline personality disorder 09/29/2012 01/05/2016 Hypertension, accelerated 10/05/2010 Immunizations Immunization Administration Dates Next Due Flu Vaccine 3yrs and up 04/19/2011 Flu Vaccine, Flulaval/Fluari x/Afluria Quadrivalent, 0.5mL PFS 04/06/2018 Flu Vaccine, Inactived, Quadrivalent, Std Dose 0 07/10/2017 Pneumococcal Polysaccharide vaccine, 23 valent 1 07/27/2013 TDaP 12/24/2017 Family History Medical History Relation Comments Alcohol/Drug Brother 1 Diabetes Brother 1 Alcohol/Drug Brother 2 Alcohol/Drug Father Seizures Father Cancer Maternal Grandmother Alcohol/Drug Mother Cancer Mother Diabetes Mother Hypertension Mother Stroke Paternal Grandmother Anesthesia Problems Neg Hx Relation Status Comments Brother 1 Alive Brother 2 Alive Father Maternal Grandfather Maternal Grandmother Mother Alive Paternal Grandmother Alive Social History Tobacco Use Types Packs/Day Years Used Date Smoking Tobacco: Never Smokeless Tobacco: Never Tobacco Cessation:Counseling Given: Yes Alcohol Use Standard Drinks/Week Comments Yes 4 (1 standard drink = 0.6 oz pure alcohol) I drink both liquor and beer/depends on who she is drinking with [facility] Utilities Answer Date Recorded In the past 12 months has e electric, gas, oil, or water company threatened to shut off services in your home? No 06/13/2023 Humiliation, Afraid, Rape, and Kick questionnair e Answer Date Recorded Within the last year, have y ou been afraid of your partner or ex-partner? No 06/13/2023 Within the last year, have y ou been humiliated or emotionally abused in other ways by your partner or ex-partner? No Within the last year, have y ou been kicked, hit, slapped, or otherwise physically hurt by your partner or ex-partner? No 06/13/2023 Within the last year, have y ou been raped or forced to have any kind of sexual activity by your partner or ex-partner? No 06/13/2023 Social Connection and Isolation Panel Answer Date Recorded In a typical week, how many times do you talk on the phone with family, friends, or neighbors? Never 06/13/2023 Frequency of Social Gatherings with Friends and Family Not on file 06/13/2023 Attends Scientology Services Not on file 06/13 Active Member of Clubs or Organizations Not on f ile 06/13/2023 Attends Club or Organization Meetings Not on sky e 06/13/2023 Marital Status Not on file 06/13/2023 AUDIT-C Answer Date Recorded Q1: How often do you have a drink containing alcohol? 4 or more times a week 06/13/2023 Q2: How many drinks containi ng alcohol do you have on a typical day when you are drinking? 3 or 4 Q3: How often do you have si x or more drinks on one occasion? Daily or almost daily 06/13/2023 Overall Financial Resource Strain (CARDIA) Answe r Date Recorded How hard is it for you to pa y for the very basics like food, housing, medical care, and heating? Not very hard 06/13/2023 [facility] [place] - Occupational Stress Questionnaire Answer Date Recorded Do you feel stress - tense, restless, nervous, or anxious, or unable to sleep at night because your mind is troubled all the time - these days? To some extent 06/13/2023 Exercise Vital Sign Answer Date Recorde d On average, how many days pe r week do you engage in moderate to strenuous exercise (like a brisk walk)? 0 days 06/13/2023 On average, how many minutes do you engage in exercise at this level? 0 min 06/13/2023 Hunger Vital Sign Answer Date Recorded Within the past 12 months, y ou worried that your food would run out before you got the money to buy more. Never true 06/13/20 23 Within the past 12 months, t he food you bought just didn't last and you didn't have money to get more. Never true 06/13/2023 PRAPARE - Transportation Answer Date Re corded In the past 12 months, has l ack of transportation kept you from medical appointments or from getting medications? No 05/24 In the past 12 months, has l ack of transportation kept you from meetings, work, or from getting things needed for daily living? No 06/13/2023 Housing Stability Vital Sign Answer Dexter e Recorded In the last 12 months, was t here a time when you were not able to pay the mortgage or rent on time? No 06/13/2023 In the last 12 months, how many places have you lived? 1 06/13/2023 In the last 12 months, was t here a time when you did not have a steady place to sleep or slept in a senior care (including now)? No 06/13/2023 Comments No Sex and Gender Information Value Date Recorded Sex Assigned at Not on file Legal Sex Female 9:32 AM EDT Gender Identity Not on file Sexual Orientation Not on file Last Filed Vital Signs Vital Sign Reading Time Taken Comments Blood Pressure 107/67 06/17/2023 7:55 AM EST Pulse 71 06/17/2023 7:55 AM EST Temperature 36.6 C (97.8 F) 06/17/2023 7:55 AM EST Respiratory Rate 18 06/17/2023 7:55 AM EST Oxygen Saturation 97% 06/17/2023 7:55 AM EST Inhaled Oxygen Concentration - - Weight 79.1 kg (174 lb 4.8 oz) 06/13/2023 1:00 P M EST Height 170.2 cm (5' 7 ) 06/12/2023 8:32 AM EST Body Mass Index 27.3 06/12/2023 8:32 AM EST Plan of Treatment Health Maintenance Due Date Last Done Comments CT Colonography 1970 Colonoscopy 1970 Colorectal Cancer Screening 1970 FIT-DNA (Cologuard) 1970 FOBT/FIT 1970 Hepatitis B Vaccines (1 of 3 - 19+ 3-dose series) 1989 Breast Cancer Screening 03/18/2014 03/18/2013 Pneumococcal Vaccines: 50+ Years (2 of 2 - PCV) 05/26/2015 05/26/2014 Zoster Vaccines (1 of 2) 2020 COVID-19 Vaccines (2 - season) 2024 03/10/2021 Influenza Vaccines 01/21/2025 04/08/2021, 1 , 07/19/2018, Additional history exists Diabetes Screening 06/14/2026 06/14/2023, 1 08/13/2022, 06/04/2023, Additional history exists DTaP/Tdap/Td Vaccines (2 - Td or Tdap) 12/25/2027 12/24/2017 HIV Screening Completed 08/08/2015, 09/23, 05/15/2007, Additional history exists Hepatitis C Screening Completed 08/08/2015, 015 HIB Vaccines Aged Out No longer eligi ble based on patient's age to complete this topic HISTORICAL VIEW: MMR Vaccines Discontinued HISTORICAL VIEW: Varicella Vaccines Discontinued HPV Vaccines Aged Out No longer eligi ble based on patient's age to complete this topic Hepatitis A Vaccines Aged Out No long er eligible based on patient's age to complete this topic IPV Vaccines Aged Out No longer eligi ble based on patient's age to complete this topic Meningococcal Vaccines Aged Out No lo nger eligible based on patient's age to complete this topic Rotavirus Vaccines Aged Out No longer eligible based on patient's age to complete this topic Medical Devices Implanted Type Area Hotel Controller Device Identifier Shelf Expiration Date Model / Serial / Lot Graft Dural Matrix Regeneration 4in 5in Duragen Plus [id number] - [id number] Implanted:Qty: 1 on 06/27/2011 at [facility] N/A: Spine Cervical [employer] 12/25/2012 [id number] / / [id number] Lordotic Cage 7 Degree Implanted:Qty: 1 on 06/27/2011 at [facility] N/A: Spine Cervical 316.118 / / 0000 Bone Graft Substitute Vitoss Foam Pack 5cc [id number] - [id number] Implanted:Qty: 1 on 06/27/2011 at [facility] N/A: Spine Cervical [employer] 11/25/2010 [id number] / / [id number] Description:VITOSS 5CC Vectra-T Plate Implanted:Qty: 1 on 06/27/2011 at [facility] N/A: Spine Cervical 450.572 / / 0000 Description:VECTRA-T PLATE 4 8MM Screw Cervical Variable Angle Self-Retaining Self-Drilling Titanium 4.5mm 18mm [id number] - [id number] Implanted:Qty: 4 on 06/27/2011 at [facility] N/A: Spine Cervical [employer] [id number] / / 0000 Description:4.5MM X 18MM [place] Ptfe 4.5mm X 6mm Ca/250 [id number] - [id number] Implanted:Qty: 1 on 02/20/2023 by Hakeem Maynard DO at [facility] N/A: Abdomen [employer] 02/17/2025 [id number] / / [id number] Aplr Clip Endoscpc 5mm Ti Endo Clip Super Interlock [id number] Implanted:Qty: 1 on 02/20/2023 by Hakeem Maynard DO at [facility] N/A: Abdomen COVIDIEN 06/01/2024 [id number] / / [id number] Procedures Procedure Name Priority Date/Time Associated Diagnosis Comments COMP METABOLIC PANEL Timed 06/14/2023 7:48 AM EST HIV AG/AB SCREEN, EIA Routine 08/08/2015 4:31 PM EST STD exposure HEPATITIS C VIRUS ANTIBODY Routine 08/08/2015 4:31 PM EST STD exposure MAMMOGRAPHY SCREEN BILATERAL WITH CAD Routine 03/18/2013 8:11 AM EDT Other screening mammogram from Last 3 Months or Most Recently Relevant to Health Maintenance Results * (ABNORMAL) COMPREHENSIVE METABOLIC PANEL (06/14/2023 7:48 AM EST) Sodium 141 135 - 148 mEq/L 06/14/2023 8:25 AM EST [facility] Potassium 3.9 3.4 - 5.3 mEq/L 06/14/2023 8:25 AM EST [facility] Chloride 106 96 - 110 mEq/L 06/14/2023 8:25 AM EST [facility] Carbon Dioxide 26 19 - 32 mEq/L 06/14/2023 8:25 AM EST [facility] BUN 15 3 - 29 mg/dL 06/14/2023 8:25 AM EST [facility] Creatinine 0.8 0.5 - 1.2 mg/dL 06/14/2023 8:25 AM EST [facility] Glucose 94 70 - 99 mg/dL 06/14/2023 8:25 AM EST [facility] Calcium 9.5 8.5 - 10.5 mg/dL 06/14/2023 8:25 AM EST [facility] AST 21 0 - 46 U/L 06/14/2023 8:25 AM EST [facility] ALT 19 0 - 60 U/L 06/14/2023 8:25 AM EST [facility] Alkaline Phosphatase 106 23 - 144 U/L 06/14/2023 8:25 AM EST [facility] Bilirubin,Total 0.2 0.0 - 1.2 mg/dL 06/14/2023 8:25 AM EST [facility] Total Protein 7.5 6.0 - 8.3 g/dL 06/14/2023 8:25 AM EST [facility] Albumin 3.8 3.5 - 5.2 g/dL 06/14/2023 8:25 AM EST [facility] Globulin 3.7(H) 1.9 - 3.6 g/dL 06/14/2023 8:25 AM EST [facility] A/G Ratio 1.0 0.8 - 2.6 06/14/2023 8:25 AM EST [facility] Anion Gap 9 5 - 15 06/14/2023 8:25 AM EST [facility] BUN/CREAT Ratio 19 7 - 25 8:25 AM EST [facility] Estimated GFR 89 >=60 mL/min/1. 73m*2 06/14/2023 8:25 AM EST [facility] Blood. (Venous.) Venipuncture / Unknown 06/14/2023 7:48 AM EST 06/14/2023 7:58 AM EST us Stanley Polanco DO LAB - BLOOD ORDERS Final Res ult [facility] [address] [place] [address] * HIV 1, 2 SCREEN (08/08/2015 4:31 PM EST) [facility] HIV AG/AB SCREEN NON-REACTI VE NON-REACTI VE [facility] Comment: NOTE: A NON-REACTIVE RESULT INDICATES THAT HIV 1/2 ANTIBODIES AND/OR HIV AG HAVE NOT BEEN FOUND IN THIS PATIENT SPECIMEN. A NON-REACTIVE RESULT, HOWEVER, DOES NOT PRECLUDE PREVIOUS EXPOSURE OR INFECTION WITH HIV 1/2. Blood specimen (specimen) 08/08/2015 4:31 PM EST 08/08/2015 10:05 PM EST Narrative Resulting Agency Comment Performing Organization Information: Site ID: IO Name: [facility] Address: [address] [place] [address] [place] [address] Director: Jonathan Soria M.D. Neena Shell MD LAB - BLOOD ORDERS Final R esult Performing Organization Address [facility] Co de Phone Number [facility] [address] [place] [address] [facility] * HEPATITIS C VIRUS ANTIBODY (08/08/2015 4:31 PM EST) HEPATITIS C ANTIBODY NEGATIVE NEGATIVE [facility] Blood specimen (specimen) 08/08/2015 4:31 PM EST 08/08/2015 10:05 PM EST Narrative Resulting Agency Comment Performing Organization Information: Site ID: IO Name: [facility] Address: [address] [place] [address] [place] [address] Director: Jonathan Soria M.D. Neena Shell MD LAB - BLOOD ORDERS Final R esult Performing Organization Address [facility] de Phone Number [facility] [address] [place] [address] [facility] * MAMMOGRAPHY SCREEN BILATERAL WITH CAD (03/18/2013 8:11 AM EDT) Anatomical Region Laterality Modality BRST N/A Mammography 03/18/2013 8:08 AM EDT Impressions 03/18/2013 8:15 AM EDT IMPRESSION:NEGATIVE There is no mammographic evidence of malignancy. A 1 year screening mammogram is recommended. A result summary letter will be sent to the patient. The patient has been entered into a reminder system with the target due date for the next mammogram. Electronically signed by: Domenic basurto/fidel:03/18/2013 08:15:04 letter sent: Normal Mammogram BI-RADS: 1 Negative Narrative 03/18/2013 8:15 AM EDT #[id number] - MAMMOGRAPHY SCREEN BILATERAL WITH CAD FIRST EVER DIGITAL SCREENING MAMMOGRAM WITH CAD: 03/18/2013 INDICATIONS: Other Screening Mammogram. No prior exams were available for comparison. There are scattered fibroglandular elements in both breasts that could obscure a lesion on mammography. Current study was also evaluated with a Computer Aided Detection (CAD) system. No significant masses, calcifications, or other findings are seen in either breast. Procedure Note Domenic Minor MD - 03/22/2013 #[id number] - MAMMOGRAPHY SCREEN BILATERAL WITH CAD FIRST EVER DIGITAL SCREENING MAMMOGRAM WITH CAD: 03/18/2013 INDICATIONS: Other Screening Mammogram. No prior exams were available for comparison. There are scattered fibroglandular elements in both breasts that couldobscure a lesion on mammography. Current study was also evaluated with a Computer Aided Detection (CAD)system. No significant masses, calcifications, or other findings are seen ineither breast. IMPRESSION: IMPRESSION:NEGATIVE There is no mammographic evidence of malignancy. A 1 year screeningmammogram is recommended. A result summary letter will be sent to the patient. The patient has been entered into a reminder system with the target duedate for the next mammogram. Electronically signed by: Domenic basurto/fidel:03/18/2013 08:15:04 letter sent: Normal Mammogram BI-RADS: 1 Negative Carlos Hyde MD MAMMOGRAPHY ORDERS Final Result from Last 3 Months or Most Recently Relevant to Health Maintenance Insurance CARE SOURCE/DAHP CARE SOURCE/DA CARE SOURCE/DAHP Member Subscriber Plan / Payer (Ef fective 2024-Present) Name:Stephen Porter R Relation to Subscriber:Self Name:Stephen Porter Payer ID:[id number] (NA) Group ID:Not on file Type:O Address: [address] [facility] MEDICAID WRAP [facility] CARE SOURCE/DAHP CARESOURCE/DAHP Member Subscriber Plan / Payer ( fective 2015-Present) Name:Stephen Porter Relation to Subscriber:Self Name:Stephen Porter Payer ID:[id number] ([facility]) Group ID:Not on file Type:HMO Address: [place] [id number] CARE SOURCE/DAHP Member Subscriber Plan / Payer ( fective 2024-Present) Name:Stephen Porter Juan C Relation to Subscriber:Self Name:Stephen Porter Payer ID:[id number] ([facility]) Group ID:[id number] Type:HMO Address: [place] [phone] Advance Directives For more information, please contact: [phone] * Total Support (Latest Code Status on File) Date Activated Date Inactivated Comments 06/12/2023 1:07 PM 06/13/2023 4:53 PM * Total Support Date Activated Date Inactivated Comments 03/06/2023 4:01 PM 03/13/2023 3:17 PM * Total Support Date Activated Date Inactivated Comments 02/20/2023 12:47 PM 02/26/2023 4:03 PM * Total Support Date Activated Date Inactivated Comments 07/09/2017 1:08 AM 07/10/2017 10:19 PM * Total Support Date Activated Date Inactivated Comments 12/29/2015 2:02 AM 12/31/2015 7:51 PM Care Teams Relish Blender Relationship Specialty Start Date End Date Joe Marte MD PCP - General Family Practice 10/26/22
--- OUTSIDE RECORDS SUMMARY | 2024-12-16 10:03 | XMS_ITS | Encounter Summary ---
Author Organization [facility] [place] [address] Care Team Providers Care Merchandising Professor Name Role Phone Victorino Sanchez MD Primary Care Provider [phone] Joe Marte MD Primary Care Provider [phone] Joe Marte MD Primary Care Provider [phone] Reason for Visit * Reason Onset Date Comments Follow-up 01/01/2016 Encounter Details Date Type Department Care Team (Late st Contact Info) Description 01/01/2016 Telephone [facility] [address] [place] [address] CherriMatthieu RN Follow-up Social History Tobacco Use Types Packs/Day Years Used Date Smoking Tobacco: Never Smokeless Tobacco: Never Alcohol Use Standard Drinks/Week Comments Yes 0.8 (1 standard drin k = 0.6 oz pure alcohol) social drinker-last drink 05/19/2015 Comments No Sex and Gender Information Value Date Recorded Sex Assigned at Not on file Legal Sex Female 9:32 AM EDT Gender Identity Not on file Sexual Orientation Not on file documented as of this encounter Functional Status * Are you deaf or do you have serious difficulty hearing? Answer Date of Assessment Author No 12/28/2015 10:17 PM EDT Gia Pederson RN * Are you blind or do you have serious difficulty seeing, even when wearing glasses? Answer Date of Assessment Author No 12/28/2015 10:17 PM EDT Gia Pederson RN * Do you have serious difficulty walking or climbing stairs? Answer Date of Assessment Author No 12/28/2015 10:17 PM EDT Gia Pederson RN * Do you have difficulty dressing or bathing? Answer Date of Assessment Author No 12/28/2015 10:17 PM EDT Gia Pederson RN * Because of a physical, mental, or emotional condition, do you have difficulty doing errands alone such as visiting a doctor's office or shopping? Answer Date of Assessment Author Yes 12/28/2015 10:17 PM EDT Gia Pederson RN documented as of this encounter Mental Status * Because of a physical, mental, or emotional condition, do you have serious difficulty concentrating, remembering, or making decisions? Answer Entry Date Author Yes 12/28/2015 10:17 PM EDT Gia Pederson RN documented in this encounter Miscellaneous Notes * Telephone Encounter - Matthieu Harley RN - 01/01/2016 12:36 PM EDT Forwarded lab results (C-reactive protein) to PCP. documented in this encounter Plan of Treatment Not on file documented as of this encounter Visit Diagnoses Not on filedocumented in this encounter Additional Health Concerns Infection Onset Date Last Indicated Resolved Time R/O Respiratory Infection 10/26/2022 10/26/2022 3:17 AM EDT R/O COVID-19 06/03/2023 06/03/2023 06/03/2023 9:05 AM EST documented as of this encounter Care Teams Merchandising Professor Relationship Specialty Start Date End Date Victorino Sanchez MD PCP - General Family Practice 05/22/15 08/10/17 Joe Marte MD PCP - General Family Practice 04/05/18 10/25/22 Joe Marte MD PCP - General Family Practice 10/26/22 documented as of this encounter
--- OUTSIDE RECORDS SUMMARY | 2024-12-16 10:03 | XMS_ITS | Encounter Summary ---
Author Organization [facility] [place] [address] Care Team Providers Care Photovoltaic Panel Installer Name Role Phone Karina Quigley RN Unavailable Unavailable Julita Olivas RN Unavailable Marisela Taty Pelletier RN Unavailable Unavailable Ronal Santos RN Unavailable Unavailable Elayne Macedo RN Unavailable Unavailable Shannan Anaya RN Unavailable Unavailable Kenzie Brown RN Unavailable Unavailable Alyssa Rogers RN Unavailable UnavailDiane Hidalgo MD Unavailable [phone] Nurys Mcarthur RN Unavailable UnavailShannan Cm RN Unavailable Unavailable [place] RN Unavailable Unavailable Ileana Feliciano RN Unavailable Unavailable Estella Paz MICROFILM MOUNTER Unavailable [phone] Scar Cat MD Unavailable [phone] Hazel Prater RN Unavailable Unavailab Katt Carreon RN Unavailable Unavaila Neena Montero MD Unavailable + Britany Rider RT(R,CV) Unavailable Unava ilable Sappe, Sara L RN Unavailable Unavailable Nolan, Jamia RN Unavailable Unavailable Carlos Soni DO Unavailable [phone] Britney Villatoro RN Unavailable Unavail able Eladio Busch PT Unavailable Unavailable Joan Gonzalez FRACTIONATING STILL OPERATOR Unavailable Unavaila Dean Borges Unavailable Unavailable Slime Alvarez RT(R) Unavailable Unavailab Janee Chaudhari RN Unavailable Unavailable Max Goldsmith RN Unavailable Unavailable Chio Arroyo RN Unavailable [phone] Estella Poe RN Unavailable Unavailab Dharmesh Mendieta RN Unavailable Unavailable Ana Caal RN Unavailable Unavailable Juila Eric RN Unavailable Unavailab Medardo Jones RN Unavailable Unavailable LudyClaribel smith MICROFILM MOUNTER Unavailable [phone] Glenn Aldana RN Unavailable Unavailable Karissa Nice RN Unavailable Unavailable Janeen Waddell RN Unavailable Unavailable Monica Orr RN Unavailable Unavailable Simi Crump MICROFILM MOUNTER Unavailable [phone] Chica Nick RN Unavailable Unavailable Joan Sen RN Unavailable UnavailVictorino Garcia MD Primary Care Provider [phone] Joe Marte MD Primary Care Provider [phone] Joe Marte MD Primary Care Provider [phone] Encounter Details Date Type Department Care Team (Late st Contact Info) Description 06/12/2015 Telephone [facility] [address] [place] [address] Max Oro Social History Tobacco Use Types Packs/Day Years [...] hearing? Answer Date of Assessment Author No 05/26/2015 2:56 PM Joan Yanes RN * Are you blind or do you have serious difficulty seeing, even when wearing glasses? Answer Date of Assessment Author No 05/26/2015 2:56 PM Joan Yanes RN * Do you have serious difficulty walking or climbing stairs? Answer Date of Assessment Author No 05/26/2015 2:56 PM Joan Yanes RN * Do you have difficulty dressing or bathing? Answer Date of Assessment Author No 05/26/2015 2:56 PM Joan Yanes RN * Because of a physical, mental, or emotional condition, do you have difficulty doing errands alone such as visiting a doctor's office or shopping? Answer Date of Assessment Author No 05/26/2015 2:56 PM Joan Yanes RN documented as of this encounter Mental Status * Because of a physical, mental, or emotional condition, do you have serious difficulty concentrating, remembering, or making decisions? Answer Entry Date Author No 05/26/2015 2:56 PM Joan Yanes RN documented in this encounter Plan of Treatment Not on file documented as of this encounter Visit Diagnoses Not on filedocumented in this encounter Additional Health Concerns Infection Onset Date Last Indicated Resolved Time R/O Respiratory Infection 10/26/2022 10/26/2022 3:17 AM EDT R/O COVID-19 06/03/2023 06/03/2023 06/03/2023 9:05 AM EST documented as of this encounter Care Teams Photovoltaic Panel Installer Relationship Specialty Start Date End Date Victorino Sanchez MD PCP - General Family Practice 05/22/15 08/10/17 Joe Marte MD PCP - General Family Practice 04/05/18 10/25/22 Joe Marte MD PCP - General Family Practice 10/26/22 Karina Quigley RN 05/16/09 06/21/15 [place] [address] 05/16/09 06/21/15 Taty Abbott, MARCELO 05/16/09 06/21/15 Ronal Santos, MARCELO 05/16/09 06/21/15 Elayne Macedo RN 05/16/09 06/21/15 Shannan Anaya RN 01/09/10 06/21/15 Kenzie Brown RN 01/25/10 06/21/15 Alyssa Rogers RN 01/26/10 06/21/15 Diane Villegas MD [facility] [address] [address] stick inserter 02/06/10 06/21/15 [place] [address] 02/06/10 06/21/15 Shannan De Jesus RN 02/21/10 06/21/15 [place] RN 02/27/10 06/21/15 Ileana Feliciano RN 02/28/10 06/21/15 Estella Paz, MICROFILM MOUNTER [address] [place] [address] 03/29/10 06/21/15 Scar Cat MD [facility] [address] [address] stick inserter 04/06/10 06/21/15 Hazel Prater RN [place], [place] 04/13/10 06/21/15 Katt Vo RN [facility] 07/17/10 06/21/15 Neena Espinal MD [address] [place] [address] stick inserter 09/04/10 06/21/15 Britany Rider, RT(R,CV) 10/06/1005/25 Sara Callaway, RN 10/07/10 06/21/15 Milli Francisco, RN 10/13/10 06/21/15 Carlos Soni DO [address] [facility] [address] [place] [address] Neurosurgery 10/15/10 06/21/15 Britney Villatoro RN 11/29/10 Eladio Busch, PT Physical Therapy 01/11/11 06/21/15 Joan Gonzalez, FRACTIONATING STILL OPERATOR 01/15/11 5 Dean Amezcua 01/28/11 06/21/15 Slime Alvarez, RT(R) 03/24/11 06/21/15 Janee Kaur, RN 04/17/11 06/21/15 Max Goldsmith RN 06/04/11 06/21/15 Chio Arroyo, RN [address] [place] [address] 06/05/11 06/21/15 Estella Poe, RN 06/05/11 06/21/15 Dharmesh Mcgowan, RN 06/18/11 06/21/15 Ana Caal, [place] [address] 06/25/11 06/21/15 Julia Eric, RN 06/27/11 06/21/15 Medardo Casey, RN 06/29/11 06/21/15 Claribel Bassett APRN [address] [facility] [address] [place] [address] 07/02/11 06/21/15 Glenn Aldana, RN 11/07/11 06/21/15 Karissa Nice RN 02/18/12 06/21/15 Janeen Waddell, RN 03/05/12 06/21/15 Monica Orr RN 05/18/12 06/21/15 Simi Crump, MICROFILM MOUNTER [address] [facility] [address] [place] [address] 05/29/12 06/21/15 Chica Nick RN 06/01/12 06/21/15 Joan Sen RN 06/21/12 06/21/15 documented as of this encounter
--- OUTSIDE RECORDS SUMMARY | 2024-12-16 10:03 | XMS_ITS | Patient Health Record ---
Author Organization [facility] Address [address] [place] [address] Care Team Providers Care Beam Doffer Name Role Phone LEMUEL MCHUGH Primary Care Provider Sree Estrada [facility] [phone] Reason For Referral No Information Encounters Encounter Location Date Provider Diagnosis [facility] [address] [place] [address] 09/15/2024 Sree Shah Plan Of Treatment No Information Insurance Providers Payer Name Payer Address Payer Phone Subscriber Number Group Number Insured Name Patient Relationship to Insured Coverage Start Date Coverage End Date [employer] [place] [employer] [address] [place] [address] [id number] STEPHEN ABERNATHY Self - patient is the insured 9
--- OUTSIDE RECORDS SUMMARY | 2024-12-16 10:03 | XMS_ITS ---
Author Organization [facility] Care Team Providers Care Spot Worker Name Role Phone Tiesha Renuka Unavailable Unavailable Allergies and adverse reactions Code CodeSystem Substance Reaction Severity StartDate Concern Status SEROquel Unknown 03/13/[address] Penicillins Unknown 03/13/2023 activ e Lexapro Unknown 03/13/2023 active Invega Unknown 03/13/2023 active Geodon Unknown 03/13/2023 active Care Team Name Role Address Phone Organization Dates Renuka Motley PCP [address] [facility] , [place], [address], [place] (Office): : : [facility] 03/13/2023 - 03/15/2023 Goals Section Goals Description Status Target Date Resident to maintain weight without significant change Active 06/12/2023 Resident to maintain/improve skin integrity Acti ve 06/12/2023 Resident to receive/tolerate diet as ordered Act guillermo 06/12/2023 Resident to remain free of sign or symptoms of d ehydration Active 06/12/2023 Resident will be able to tierney balize relief of pain, through target date Active 06/12/2023 Resident will be without decline in ROM Active 06/12/2023 Resident will be without falls through review da te Active 06/12/2023 Resident will be without imp aired skin integrity, through review date Active 06/12/2023 Resident will be without weight loss through rev iew date Active 06/12/2023 Resident will maintain adequ ate nutritional status through review date Active 06/12/2023 Resident's code status will be honored through alayna angel date Active 06/12/2023 Mental Status Section Date Assessment Total Score Description 03/15/2023 BIMS 08 moderate cognit guillermo impairment CAM 0 No delirium ind icated PHQ-9 25 severe depressi on 03/15/2023 CAM 0 No delirium ind icated Problems Problem # Description Date of onset Resolved Date Code CodeSystem Concern Status 1 DIFFICULTY IN WALKING, NOT ELSEWHERE CLASSIFIED 03/15/[address] active 2 OTHER SYMPTOMS AND SIGNS INVOLVING THE MUSCULOSKELETAL SYSTEM 03/15/[address] active 3 ABNORMAL POSTURE 03/14/[address] a ctive 4 DYSPHAGIA, OROPHARYNGEAL PHASE 03/14/[address] active 5 MUSCLE WEAKNESS (GENERALIZED) 03/14/[address] active 6 OTHER LACK OF COORDINATION 03/14/[address] active 7 OTHER SYMBOLIC DYSFUNCTIONS 03/14/[address] active 8 UNSTEADINESS ON FEET 03/14/[address] active 9 ALCOHOL ABUSE, UNCOMPLICATED 03/13/[address] active 10 CERVICALGIA 03/13/[address] active 11 CHEST PAIN, UNSPECIFIED 03/13/[address] active 12 CHRONIC OBSTRUCTIVE PULMONARY DISEASE, UNSPECIFIED 03/13/[address] active 13 COCAINE USE, UNSPECIFIED WITH COCAINE-INDUCED MOOD DISORDER 03/13/[address] active 14 COMPLEX REGIONAL PAIN SYNDROME I, UNSPECIFIED 03/13/[address] active 15 DEPRESSION, UNSPECIFIED 03/13/[address] active 16 DIAPHRAGMATIC HERNIA WITHOUT OBSTRUCTION OR GANGRENE 03/13/[address] active 17 DISEASE OF SPINAL CORD, UNSPECIFIED 03/13/[address] active 18 DRUG INDUCED ACUTE DYSTONIA 03/13/[address] active 19 ELEVATED BLOOD-PRESSURE READING, WITHOUT DIAGNOSIS OF HYPERTENSION 03/13/[address] active 20 EPIGASTRIC PAIN 03/13/[address] ac tive 21 ESSENTIAL (PRIMARY) HYPERTENSION 03/13/[address] active 22 GASTRO-ESOPHAGEAL REFLUX DISEASE WITHOUT ESOPHAGITIS 03/13/[address] active 23 GENERALIZED ANXIETY DISORDER 03/13/[address] active 24 HEADACHE, UNSPECIFIED 03/13/[address] active 25 MAJOR DEPRESSIVE DISORDER, RECURRENT, SEVERE WITH PSYCHOTIC SYMPTOMS 03/13/[address] active 26 OLD MYOCARDIAL INFARCTION 03/13/[address] active 27 OTHER CERVICAL DISC DEGENERATION, UNSPECIFIED CERVICAL REGION 03/13/[address] active 28 OTHER CERVICAL DISC DISPLACEMENT, UNSPECIFIED CERVICAL REGION 03/13/[address] active 29 OTHER PSYCHOACTIVE SUBSTANCE USE, UNSPECIFIED WITH PSYCHOACTIVE SUBSTANCE-INDUCED MOOD DISORDER 03/13/[address] active 30 OTHER SPECIFIED POSTPROCEDURAL STATES 03/13/[address] active 31 PELVIC AND PERINEAL PAIN 03/13/[address] active 32 PERSONAL HISTORY OF OTHER MENTAL AND BEHAVIORAL DISORDERS 03/13/[address] active 33 SCHIZOAFFECTIVE DISORDER, UNSPECIFIED 03/13/[address] active 34 SPINAL STENOSIS, CERVICAL REGION 03/13/[address] active 35 SUICIDE ATTEMPT, INITIAL ENCOUNTER 03/13/[address] active 36 UNSPECIFIED ASTHMA, UNCOMPLICATED 03/13/[address] active 37 UNSPECIFIED PSYCHOSIS NOT DUE TO A SUBSTANCE OR KNOWN PHYSIOLOGICAL CONDITION 03/13/[address] active Reason for Referral No Reasons for Referral Entered Social History Social History Observation Description Start Date End Date Code Code System Current Smoking Status Tobacco smoking consumption unknown 485967822 SNOMED CT Sex Assigned At Female 1970 88757-3 [facility] Gender Identity Vital Signs Code Code System Vitals Name Values and Units Timing Information 60882-6 LOINC Pain Level Value=0.0 03/17/2023 31294-8 LOINC O2 % BldC Oximetry Value=96.0 Units= % 03/15/2023 9279-1 LOINC Respiratory Rate Value=16.0 Units=/m in 03/15/2023 8462-4 [facility] Blood Pressure-Diastolic Value=83 Un its=mmHg 03/15/2023 8480-6 [facility] Blood Pressure-Systolic Sabsw=708 Un its=mmHg 03/15/2023 8310-5 [facility] Body Temperature Value=97.7 Units= F 03/15/2023 8867-4 [facility] Heart rate Value=64.0 Units=/min 01594-5 [facility] Weight Ukcnz=245.6 Units=Lbs 8302-2 [facility] Height Value=67.0 Units=Inches 03/14/2023
--- OUTSIDE RECORDS SUMMARY | 2024-12-16 10:03 | XMS_ITS | Encounter Summary ---
Author Organization [facility] [place] [address] Care Team Providers Care Mac Developer Name Role Phone Victorino Sanchez MD Primary Care Provider [phone] Joe Marte MD Primary Care Provider [phone] Joe Marte MD Primary Care Provider Encounter Details Date Type Department Care Team (Late st Contact Info) Description 07/25/2015 Telephone [facility] Psychiatric OP [address] [place], [place] [id number] Jet Corado Social History Tobacco Use Types Packs/Day Years [...] hearing? Answer Date of Assessment Author No 06/23/2015 4:59 PM Kimberly Shearer RN * Are you blind or do you have serious difficulty seeing, even when wearing glasses? Answer Date of Assessment Author No 06/23/2015 4:59 PM Kimberly Shearer RN * Do you have serious difficulty walking or climbing stairs? Answer Date of Assessment Author No 06/23/2015 4:59 PM Kimberly Shearer RN * Do you have difficulty dressing or bathing? Answer Date of Assessment Author No 06/23/2015 4:59 PM Kimberly Shearer RN * Because of a physical, mental, or emotional condition, do you have difficulty doing errands alone such as visiting a doctor's office or shopping? Answer Date of Assessment Author No 06/23/2015 4:59 PM Kimberly Shearer RN documented as of this encounter Mental Status * Because of a physical, mental, or emotional condition, do you have serious difficulty concentrating, remembering, or making decisions? Answer Entry Date Author No 06/23/2015 4:59 PM Kimberly Shearer RN documented in this encounter Plan of Treatment Not on file documented as of this encounter Visit Diagnoses Not on filedocumented in this encounter Additional Health Concerns Infection Onset Date Last Indicated Resolved Time R/O Respiratory Infection 10/26/2022 10/26/2022 3:17 AM EDT R/O COVID-19 06/03/2023 06/03/2023 06/03/2023 9:05 AM EST documented as of this encounter Care Teams Mac Developer Relationship Specialty Start Date End Date Victorino Sanchez MD PCP - General Family Practice 05/22/15 08/10/17 Joe Marte MD PCP - General Family Practice 04/05/18 10/25/22 Joe Marte MD PCP - General Family Practice 10/26/22 documented as of this encounter
--- OUTSIDE RECORDS SUMMARY | 2024-12-16 10:03 | XMS_ITS | Continuity of Care Document ---
Author Organization [facility] Address [address] [place] [address] Phone [phone] Care Team Providers Care Lead Manufacturing Engineering Tech Name Role Phone BRETT WILLSON CNP Care Team Information R hitesh Unavailable
--- OUTSIDE RECORDS SUMMARY | 2024-12-16 10:03 | XMS_ITS | Encounter Summary ---
Author Organization [facility] [place] [address] Care Team Providers Care Chrome Plater Helper Name Role Phone Karina Quigley RN Unavailable Unavailable Julita Olivas RN Unavailable Marisela Taty Pelletier RN Unavailable Unavailable Ronal Santos RN Unavailable Unavailable Elayne Macedo RN Unavailable Unavailable Shannan Anaya RN Unavailable Unavailable Kenzie Brown RN Unavailable Unavailable Alyssa Rogers RN Unavailable UnavailDiane Hidalgo MD Unavailable [phone] Nurys Mcarthur RN Unavailable UnavailShannan Cm RN Unavailable Unavailable [place] RN Unavailable Unavailable Ielana Feliciano RN Unavailable Unavailable Estella Paz GENERAL MANAGER ORACLE DATA CLOUD Unavailable [phone] Scar Cat MD Unavailable [phone] Hazel Prater RN Unavailable Unavailab Katt Carreon RN Unavailable Unavaila Neena Montero MD Unavailable + Britany Rider RT(R,CV) Unavailable Unava ilable Sappe, Sara L RN Unavailable Unavailable Nolan, Jamia RN Unavailable Unavailable Carlos Soni DO Unavailable [phone] Britney Villatoro RN Unavailable Unavail able Eladio Busch PT Unavailable Unavailable Joan Gonzalez CHIEF GROWTH OFFICER Unavailable Unavaila Dean Borges Unavailable Unavailable Sliem Alvarez RT(R) Unavailable Unavailab Janee Chaudhari RN Unavailable Unavailable Max Goldsmith RN Unavailable Unavailable Chio Arroyo RN Unavailable [phone] Estella Poe RN Unavailable Unavailab Dharmesh Mendieta RN Unavailable Unavailable Ana Caal RN Unavailable Unavailable Julia Eric RN Unavailable Unavailab Medardo Jones RN Unavailable Unavailable LudyClaribel smith GENERAL MANAGER ORACLE DATA CLOUD Unavailable [phone] Glenn Aldana RN Unavailable Unavailable Karissa Nice RN Unavailable Unavailable Janeen Waddell RN Unavailable Unavailable Monica Orr RN Unavailable Unavailable Simi Crump GENERAL MANAGER ORACLE DATA CLOUD Unavailable [phone] Chica Nick RN Unavailable Unavailable Joan Sen RN Unavailable UnavailVictorino Garcia MD Primary Care Provider [phone] Joe Marte MD Primary Care Provider [phone] Joe Marte MD Primary Care Provider [phone] Encounter Details Date Type Department Care Team (Late st Contact Info) Description 06/19/2015 Telephone [facility] Psychiatric OP 1 [place] [address] Neena Leigh, [place],[facility] Social History Tobacco Use Types Packs/Day Years [...] as of this encounter Functional Status * Functional & Cognitive Status Question Answer Date of Assessment Author Because of a physical, menta l, or emotional condition, do you have serious difficulty concentrating, remembering, or making decisions? No 06/22/2015 10:03 PM Alma Delia Conley RN Do you have difficulty dress ing or bathing? No 06/22/2015 10:03 PM Alma Delia Cornejo R N Because of a physical, menta l, or emotional condition, do you have difficulty doing errands alone such as visiting a doctor's office or shopping? No 06/22/2015 10:03 PM Alma Delia Cornejo R N * Are you deaf or do you [...] 05/26/2015 2:56 PM Joan Yanes RN * Functional & Cognitive Status Question Answer Date of Assessment Author Are you deaf or do you have serious difficulty hearing? No 06/22/2015 10:03 PM Alma Delia Cornejo R N Are you blind or do you have serious difficulty seeing, even when wearing glasses? No 06/22/2015 10:03 PM Alma Delia Cornejo R N Do you have serious difficul ty walking or climbing stairs? No 06/22/2015 10:03 PM Santiago Cornejo RN Because of a physical, menta l, or emotional condition, do you have difficulty doing errands alone such as visiting a doctor's office or shopping? No 06/22/2015 10:03 PM Alma Delia Cornejo R N documented as of this encounter Mental Status * Functional & Cognitive Status Question Answer Entry Date Author Because of a physical, menta l, or emotional condition, do you have serious difficulty concentrating, remembering, or making decisions? No 06/22/2015 10:03 PM EST Alma Delia Villegas RN Because of a physical, menta l, or emotional condition, do you have difficulty doing errands alone such as visiting a doctor's office or shopping? No 06/22/2015 10:03 PM EST Alma Delia Kay R N * Because of a physical, mental, or emotional condition, do you have serious difficulty concentrating, remembering, or making decisions? Answer Entry Date Author No 05/26/2015 2:56 PM EST Joan Nice RN documented in this encounter Miscellaneous Notes * Telephone Encounter - Neena Leigh MS,[facility] - 06/19/2015 4:47 PM EST I attempted to call the client to see why she missed group today and her phone is not accepting calls at this time. documented in this encounter Plan of Treatment Not on file documented as of this encounter Visit Diagnoses Not on filedocumented in this encounter Additional Health Concerns Infection Onset Date Last Indicated Resolved Time R/O Respiratory Infection 10/26/2022 10/26/2022 3:17 AM EDT R/O COVID-19 06/03/2023 06/03/2023 06/03/2023 9:05 AM EST documented as of this encounter Care Teams Chrome Plater Helper Relationship Specialty Start Date End Date Victorino Sanchez MD PCP - General Family Practice 05/22/15 08/10/17 Joe Marte MD PCP - General Family Practice 04/05/18 10/25/22 Joe Marte MD PCP - General Family Practice 10/26/22 Karina Quigley RN 05/16/09 06/21/15 [place] [address] 05/16/09 06/21/15 Taty Abbott RN 05/16/09 06/21/15 Ronal Santos RN 05/16/09 06/21/15 Elayne Macedo RN 05/16/09 06/21/15 Shannan Anaya RN 01/09/10 06/21/15 Kenzie Brown RN 01/25/10 06/21/15 Alyssa Rogers RN 01/26/10 06/21/15 Diane Villegas MD [address] [address] lens block gauger 02/06/10 06/21/15 [place] [address] 02/06/10 06/21/15 Shannan De Jesus RN 02/21/10 06/21/15 Glory Park RN 02/27/10 06/21/15 Ileana Feliciano RN 02/28/10 06/21/15 Etsella Paz, GENERAL MANAGER ORACLE DATA CLOUD [address] [place] [address] 03/29/10 06/21/15 Scar Cat MD [address] [address] lens block gauger 04/06/10 06/21/15 Hazel Prater RN [place] 04/13/10 06/21/15 Katt Vo RN [facility] 07/17/10 06/21/15 Neena Espnial MD [address] [place] [address] lens block gauger 09/04/10 06/21/15 Britany Rider, RT(R,CV) 10/06/1005/25 Sara Callaway, RN 10/07/10 06/21/15 Milli Francisco, RN 10/13/10 06/21/15 Carlos Soni DO 30 [facility] [address] [place] [address] Neurosurgery 10/15/10 06/21/15 Britney Villatoro RN 11/29/10 Eladio Busch, PT Physical Therapy 01/11/11 06/21/15 Joan Gonzalez, CHIEF GROWTH OFFICER 01/15/11 5 Dean Amezcua 01/28/11 06/21/15 Slime Alvarez, RT(R) 03/24/11 06/21/15 Janee Kaur, RN 04/17/11 06/21/15 Max Goldsmith RN 06/04/11 06/21/15 Chio Arroyo, RN 1 [place] [address] 06/05/11 06/21/15 Estella Poe, RN 06/05/11 06/21/15 Dharmesh Mcgowan, RN 06/18/11 06/21/15 Ana Caal, [place] [address] 06/25/11 06/21/15 Julia Eric, RN 06/27/11 06/21/15 Medardo Casey, RN 06/29/11 06/21/15 Claribel Bassett APRN [address] [address] 07/02/11 06/21/15 Glenn Aldana, RN 11/07/11 06/21/15 Karissa Nice RN 02/18/12 06/21/15 Janeen Waddell, RN 03/05/12 06/21/15 Monica Orr RN 05/18/12 06/21/15 Simi Crump APRN [address] [facility] [address] [place] [id number] 05/29/12 06/21/15 Chica Nick RN 06/01/12 06/21/15 Joan Sen RN 06/21/12 06/21/15 documented as of this encounter
--- OUTSIDE RECORDS SUMMARY | 2024-12-16 10:03 | XMS_ITS | Encounter Summary ---
Author Organization [facility] [place] [address] Care Team Providers Care Senior Drupal Developer Name Role Phone Karina Quigley RN Unavailable Unavailable Julita Olivas RN Unavailable Marisela Taty Pelletier RN Unavailable Unavailable Ronal Santos RN Unavailable Unavailable Elayne Macedo RN Unavailable Unavailable Shannan Anaya RN Unavailable Unavailable Kenzie Brown RN Unavailable Unavailable Alyssa Rogers RN Unavailable UnavailDiane Hidalgo MD Unavailable [phone] Nurys Mcarthur RN Unavailable UnavailShannan Cm RN Unavailable Unavailable [place] RN Unavailable Unavailable Ileana Feliciano RN Unavailable Unavailable Estella Paz POLE SHAVER HELPER Unavailable [phone] Scar Cat MD Unavailable [phone] Hazel Prater RN Unavailable Unavailab Katt Carreon RN Unavailable Unavaila Neena Montero MD Unavailable + Britany Rider RT(R,CV) Unavailable Unava ilable Sappe, Sara L RN Unavailable Unavailable Nolan, Jamia RN Unavailable Unavailable Carlos Soni DO Unavailable [phone] Britney Villatoro RN Unavailable Unavail able Eladio Busch PT Unavailable Unavailable Joan Gonzalez CYBER SYSTEMS ENGINEER Unavailable Unavaila Dean Borges Unavailable Unavailable Slime Alvarez RT(R) Unavailable Unavailab Janee Chaudhari RN Unavailable Unavailable Max Goldsmith RN Unavailable Unavailable Chio Arroyo RN Unavailable [phone] Estella Poe RN Unavailable Unavailab Dharmesh Mendieta RN Unavailable Unavailable Ana Caal RN Unavailable Unavailable Julia Eric RN Unavailable Unavailab Medardo Jones RN Unavailable Unavailable LudyClaribel smith POLE SHAVER HELPER Unavailable [phone] Glenn Aldana RN Unavailable Unavailable Karissa Nice RN Unavailable Unavailable Janeen Waddell RN Unavailable Unavailable Monica Orr RN Unavailable Unavailable Simi Crump POLE SHAVER HELPER Unavailable [phone] Chica Nick RN Unavailable Unavailable Joan Sen RN Unavailable UnavailVictorino Garcia MD Primary Care Provider [phone] Victorino Sanchez MD Primary Care Provider + [phone] Joe Marte MD Primary Care Provider [phone] Joe Marte MD Primary Care Provider [phone] Reason for Visit * Reason Onset Date Comments Refill Request 05/17/2013 Encounter Details Date Type Department Care Team (Late st Contact Info) Description 05/17/2013 Refill [facility] [address] [place] [id number] Soniya Estrada Social History Tobacco Use Types Packs/Day Years Used Date Smoking Tobacco: Never Smokeless Tobacco: Never Alcohol Use Standard Drinks/Week Comments Yes 0 (1 standard drink = 0.6 oz pur e alcohol) Comments No Sex and Gender Information Value Date Recorded Sex Assigned at Not on file Legal Sex Female 9:32 AM EDT Gender Identity Not on file Sexual Orientation Not on file documented as of this encounter Miscellaneous Notes * Telephone Encounter - Soniya Estrada - 05/17/2013 10:24 AM EST Pt called requesting these documented in this encounter Plan of Treatment Not on file documented as of this encounter Visit Diagnoses Not on filedocumented in this encounter Additional Health Concerns Infection Onset Date Last Indicated Resolved Time R/O Respiratory Infection 10/26/2022 10/26/2022 3:17 AM EDT R/O COVID-19 06/03/2023 06/03/2023 06/03/2023 9:05 AM EST documented as of this encounter Care Teams Senior Drupal Developer Relationship Specialty Start Date End Date Victorino Sanchez MD PCP - General Family Practice 05/25/14 03/19/15 Victorino Sanchez MD PCP - General Family Practice 05/22/15 08/10/17 Joe Marte MD PCP - General Family Practice 04/05/18 10/25/22 Joe Marte MD PCP - General Family Practice 10/26/22 Karina Quigley RN 05/16/09 06/21/15 [place] [address] 05/16/09 06/21/15 Taty Abbott, MARCELO 05/16/09 06/21/15 Ronal Santos RN 05/16/09 06/21/15 Elayne Macedo RN 05/16/09 06/21/15 Shannan Anaya RN 01/09/10 06/21/15 Kenzie Brown RN 01/25/10 06/21/15 Alyssa Rogers RN 01/26/10 06/21/15 Diane Villegas MD [address] [address] protective officer 02/06/10 06/21/15 [place] [address] 02/06/10 06/21/15 Shannan De Jesus RN 02/21/10 06/21/15 Glory Park RN 02/27/10 06/21/15 Ileana Feliciano RN 02/28/10 06/21/15 Estella Paz, POLE SHAVER HELPER [address] [place] [address] 03/29/10 06/21/15 Scar Cat MD [address] [place] [phone] protective officer 04/06/10 06/21/15 Hazel Prater RN [place], [place] 04/13/10 06/21/15 Katt Vo RN [facility] 07/17/10 06/21/15 Neena Espinal MD 1 [place] [address] protective officer 09/04/10 06/21/15 Britany Rider, RT(R,CV) 10/06/1005/25 Sara Callaway RN 10/07/10 06/21/15 Milli Francisco RN 10/13/10 06/21/15 Carlos Soni DO [address] [address] Neurosurgery 10/15/10 06/21/15 Britney Villatoro, RN 11/29/10 Eladio Busch, PT Physical Therapy 01/11/11 06/21/15 Joan Gonzalez, CYBER SYSTEMS ENGINEER 01/15/11 5 Dean Amezcua 01/28/11 06/21/15 Slime Alvarez, RT(R) 03/24/11 06/21/15 Janee Kaur, RN 04/17/11 06/21/15 Max Goldsmith, RN 06/04/11 06/21/15 Chio Arroyo, RN 1 [place] [address] 06/05/11 06/21/15 Estella Poe, RN 06/05/11 06/21/15 Dharmesh Mcgowan, RN 06/18/11 06/21/15 Ana Caal, [place] [address] 06/25/11 06/21/15 Julia Eric, RN 06/27/11 06/21/15 Medardo Casey, RN 06/29/11 06/21/15 Claribel Bassett APRN [address] [address] 07/02/11 06/21/15 Glenn Aldana, RN 11/07/11 06/21/15 Karissa Nice, RN 02/18/12 06/21/15 Janeen Waddell, RN 03/05/12 06/21/15 Monica Orr, RN 05/18/12 06/21/15 Simi Crump, SERGE 8000 [facility] [address] [place] [address] 05/29/12 06/21/15 Chica Nick, RN 06/01/12 06/21/15 Joan Sen RN 06/21/12 06/21/15 documented as of this encounter
--- OUTSIDE RECORDS SUMMARY | 2024-12-16 10:03 | XMS_ITS | Encounter Summary ---
Author Organization [facility] [place] [address] Care Team Providers Care Grain Inspector Name Role Phone Karina Quigley RN Unavailable Unavailable Julita Oilvas RN Unavailable Marisela aTty Pelletier RN Unavailable Unavailable Ronal Santos RN Unavailable Unavailable Elayne Macedo RN Unavailable Unavailable Shannan Anaya RN Unavailable Unavailable Kenzie Brown RN Unavailable Unavailable Alyssa Rogers RN Unavailable UnavailDiane Hidalgo MD Unavailable [phone] Nurys Mcarthur RN Unavailable UnavailShannan Cm RN Unavailable Unavailable [place] RN Unavailable Unavailable Ileana Feliciano RN Unavailable Unavailable Estella Paz KILN BURNER HELPER Unavailable [phone] Scar Cat MD Unavailable [phone] Hazel Prater RN Unavailable Unavailab Katt Carreon RN Unavailable Unavaila Neena Montero MD Unavailable + Britany Rider RT(R,CV) Unavailable Unava ilable Sappe, Sara L RN Unavailable Unavailable Nolan, Jamia RN Unavailable Unavailable Carlos Soni DO Unavailable [phone] Britney Villatoro RN Unavailable Unavail able Eladio Busch PT Unavailable Unavailable Joan Gonzalez MAINTENANCE REPAIRMAN Unavailable Unavaila Dean Borges Unavailable Unavailable Slime Alvarez RT(R) Unavailable Unavailab Janee Chaudhari RN Unavailable Unavailable Max Goldsmith RN Unavailable Unavailable Chio Arroyo RN Unavailable [phone] Estella Poe RN Unavailable Unavailab Dharmesh Mendieta RN Unavailable Unavailable Ana Caal RN Unavailable Unavailable Julia Eric RN Unavailable Unavailab Medardo Jones RN Unavailable Unavailable LudyClaribel smith KILN BURNER HELPER Unavailable [phone] Glenn Aldana RN Unavailable Unavailable Karissa Nice RN Unavailable Unavailable Janeen Waddell RN Unavailable Unavailable Monica Orr RN Unavailable Unavailable Simi Crump KILN BURNER HELPER Unavailable [phone] Chica Nick RN Unavailable Unavailable Joan Sen RN Unavailable UnavailVictorino Garcia MD Primary Care Provider [phone] Joe Marte MD Primary Care Provider [phone] Joe Marte MD Primary Care Provider [phone] Encounter Details Date Type Department Care Team (Late st Contact Info) Description 06/09/2015 Telephone [facility] Psychiatric OP 1 [place] [address] Jet Corado Social History Tobacco Use Types [...] of Assessment Author No 05/26/2015 2:56 PM EST Joan Nice RN * Are you blind or do [...] Joan Yanes RN documented in this encounter Miscellaneous Notes * Telephone Encounter - Neena Leigh [facility] - 06/09/2015 2:35 PM EST I returned the client's call to see why she was not in group today. She stated that she had multiple stressors all hit at once and that she dropped her son off with a relative and went out and used crack cocaine. She stated that she is not feeling very well from it and is resting at home. She denied any suicidal ideation but stated that if this occurred, she would go to the emergency room. She was offered support and encouragement and was asked to go to an NA or CA meeting. * Telephone Encounter - Jet Corado - 06/09/2015 8:43 AM EST Client called off this morning I asked if there was a reason why she said no. documented in this encounter Plan of Treatment Not on file documented as of this encounter Visit Diagnoses Not on filedocumented in this encounter Additional Health Concerns Infection Onset Date Last Indicated Resolved Time R/O Respiratory Infection 10/26/2022 10/26/2022 3:17 AM EDT R/O COVID-19 06/03/2023 06/03/2023 06/03/2023 9:05 AM EST documented as of this encounter Care Teams Grain Inspector Relationship Specialty Start Date End Date Victorino Sanchez MD PCP - General Family Practice 05/22/15 08/10/17 Joe Marte MD PCP - General Family Practice 04/05/18 10/25/22 Joe Marte MD PCP - General Family Practice 10/26/22 Karina Quigley RN 05/16/09 06/21/[facility] [place] [address] 05/16/09 06/21/15 Taty Abbott, MARCELO 05/16/09 06/21/15 Ronal Santos, MARCELO 05/16/09 06/21/15 Elayne Macedo RN 05/16/09 06/21/15 Shannan Anaya RN 01/09/10 06/21/15 Kenzie Brown RN 01/25/10 06/21/15 Alyssa Rogers, MARCELO 01/26/10 06/21/15 Diane Villegas MD [address] [address] maintenance specialist 02/06/10 06/21/15 [place] [address] 02/06/10 06/21/15 Shannan De Jesus RN 02/21/10 06/21/15 Glory Park RN 02/27/10 06/21/15 Ileana Feliciano RN 02/28/10 06/21/15 Estella Paz, SERGE [address] [place] [address] 03/29/10 06/21/15 Scar Cat MD 9000 [facility] [address] [place] [address] maintenance specialist 04/06/10 06/21/15 Hazel Prater RN [place], [place] 04/13/10 06/21/15 Katt Vo RN [facility] 07/17/10 06/21/15 Neena Espinal MD 1 [place] [address] maintenance specialist 09/04/10 06/21/15 Britany Rider, RT(R,CV) 10/06/1005/25 Sara Callaway RN 10/07/10 06/21/15 Milli Francisco RN 10/13/10 06/21/15 Carlos Soni DO 30 [facility] [address] [place] [address] Neurosurgery 10/15/10 06/21/15 Britney Villatoro RN 11/29/10 Eladio uBsch, PT Physical Therapy 01/11/11 06/21/15 Joan Gonzalez, MAINTENANCE REPAIRMAN 01/15/11 5 Dean Amezcua 01/28/11 06/21/15 Slime Alvarez, RT(R) 03/24/11 06/21/15 Janee Kaur, RN 04/17/11 06/21/15 Max Goldsmith, MARCELO 06/04/11 06/21/15 Chio Arroyo, RN 1 [place] [address] 06/05/11 06/21/15 Estella Poe, RN 06/05/11 06/21/15 Dharmesh Mcgowan, RN 06/18/11 06/21/15 Ana Caal, [place] [address] 06/25/11 06/21/15 Julia Eric RN 06/27/11 06/21/15 Medardo Casey, RN 06/29/11 06/21/15 Claribel Bassett APRN [address] [address] 07/02/11 06/21/15 Glenn Aldana, RN 11/07/11 06/21/15 Karissa Nice, RN 02/18/12 06/21/15 Janeen Waddell, RN 03/05/12 06/21/15 Monica Orr RN 05/18/12 06/21/15 Simi Crump, KILN BURNER HELPER 8000 [facility] [address] [place] [address] 05/29/12 06/21/15 Chica Nick RN 06/01/12 06/21/15 Joan Sen, RN 06/21/12 06/21/15 documented as of this encounter
--- OUTSIDE RECORDS SUMMARY | 2024-12-16 10:03 | XMS_ITS | Encounter Summary ---
Author Organization [facility] [place] [address] Care Team Providers Care Visual Arts Teacher Name Role Phone Karina Quigley RN Unavailable Unavailable Julita Olivas RN Unavailable Marisela Taty Pelletier RN Unavailable Unavailable Ronal Santos RN Unavailable Unavailable Elayne Macedo RN Unavailable Unavailable Shannan Anaya RN Unavailable Unavailable Kenzie Brown RN Unavailable Unavailable Alyssa Rogers RN Unavailable UnavailDiane Hidalgo MD Unavailable [phone] Nurys Mcarthur RN Unavailable UnavailShannan Cm RN Unavailable Unavailable [place] RN Unavailable Unavailable Ileana Feliciano RN Unavailable Unavailable Estella Paz SENIOR PROFESSIONAL SERVICES CONSULTANT Unavailable [phone] Scar Cat MD Unavailable [phone] Hazel Prater RN Unavailable Unavailab Katt Carreon RN Unavailable Unavaila Neena Montero MD Unavailable + Britany Rider RT(R,CV) Unavailable Unava ilable Sappe, Sara L RN Unavailable Unavailable Nolan, Jamia RN Unavailable Unavailable Carlos Soni DO Unavailable [phone] Britney Villatoro RN Unavailable Unavail able Eladio Busch PT Unavailable Unavailable Joan Gonzalez ADVENTURE CHALLENGE INSTRUCTOR Unavailable Unavaila Dean Borges Unavailable Unavailable Slime Alvarez RT(R) Unavailable Unavailab Janee Chaudhari RN Unavailable Unavailable Max Goldsmith RN Unavailable Unavailable Chio Arroyo RN Unavailable [phone] Estella Poe RN Unavailable Unavailab Dharmesh Mendieta RN Unavailable Unavailable Ana Caal RN Unavailable Unavailable Julia Eric RN Unavailable Unavailab Medardo Jones RN Unavailable Unavailable LudyClaribel smith SENIOR PROFESSIONAL SERVICES CONSULTANT Unavailable [phone] Glenn Aldana RN Unavailable Unavailable Karissa Nice RN Unavailable Unavailable Janeen Waddell RN Unavailable Unavailable Monica Orr RN Unavailable Unavailable Simi Crump SENIOR PROFESSIONAL SERVICES CONSULTANT Unavailable [phone] Chica Nick RN Unavailable Unavailable Jaon Sen RN Unavailable UnavailVictorino Garcia MD Primary Care Provider [phone] Joe Marte MD Primary Care Provider [phone] Joe Marte MD Primary Care Provider [phone] Encounter Details Date Type Department Care Team (Late st Contact Info) Description 06/13/2015 Telephone [facility] Psychiatric OP [address] [place] [address] Neena Leigh, MS,[facility] Social History Tobacco Use Types Packs/Day [...] Notes * Telephone Encounter - Neena Leigh MS,[facility] - 06/13/2015 10:20 AM EST Client called and stated that she plans to return to group on Friday. She stated that she had relapsed on alcohol and crack cocaine and was not taking her medications correctly. She agreed to eat,take her meds as prescribed, rest up and return to group on Friday. She denied any suicidal ideation and agreed to go to the ER if needed. documented in this encounter Plan of Treatment Not on file documented as of this encounter Visit Diagnoses Not on filedocumented in this encounter Additional Health Concerns Infection Onset Date Last Indicated Resolved Time R/O Respiratory Infection 10/26/2022 10/26/2022 3:17 AM EDT R/O COVID-19 06/03/2023 06/03/2023 06/03/2023 9:05 AM EST documented as of this encounter Care Teams Visual Arts Teacher Relationship Specialty Start Date End Date Victorino Sanchez MD PCP - General Family Practice 05/22/15 08/10/17 Joe Marte MD PCP - General Family Practice 04/05/18 10/25/22 Joe Marte MD PCP - General Family Practice 10/26/22 Karina Quigley RN 05/16/09 06/21/15 [place] [address] 05/16/09 06/21/15 Taty Abbott, MARCELO 05/16/09 06/21/15 Ronal Sanots RN 05/16/09 06/21/15 Elayne Macedo RN 05/16/09 06/21/15 Shannan Anaya RN 01/09/10 06/21/15 Kenzie Brown RN 01/25/10 06/21/15 Alyssa Rogers, MARCELO 01/26/10 06/21/15 Diane Villegas MD [address] [address] trade mark examiner 02/06/10 06/21/15 [place] [address] 02/06/10 06/21/15 Shannan De Jesus RN 02/21/10 06/21/15 [place] RN 02/27/10 06/21/15 Ileana Feliciano RN 02/28/10 06/21/15 Estella Paz, SENIOR PROFESSIONAL SERVICES CONSULTANT [address] [place] [address] 03/29/10 06/21/15 Scar Cat MD [address] [facility] [address] [place] [address] trade mark examiner 04/06/10 06/21/15 Hazel Prater RN [place], [place] 04/13/10 06/21/15 Katt Vo RN [facility] 07/17/10 06/21/15 Neena Espinal MD [address] [place] [address] trade mark examiner 09/04/10 06/21/15 Britany Rider, RT(R,CV) 10/06/1005/25 Sara Callaway RN 10/07/10 06/21/15 Milli Francisco RN 10/13/10 06/21/15 Carlos Soni DO [address] [facility] [address] [place] [address] Neurosurgery 10/15/10 06/21/15 Britney Villatoro RN 11/29/10 Eladio Busch, PT Physical Therapy 01/11/11 06/21/15 Joan Gonzalez, ADVENTURE CHALLENGE INSTRUCTOR 01/15/11 5 Dean Amezcua 01/28/11 06/21/15 Slime Alvarez, RT(R) 03/24/11 06/21/15 Janee Kaur, RN 04/17/11 06/21/15 Max Goldsmith RN 06/04/11 06/21/15 Chio Arroyo, RN [address] [place] [address] 06/05/11 06/21/15Junowiecki, Estella C, MARCELO 06/05/11 06/21/15 Dharmesh Mcgowan, MARCELO 06/18/11 06/21/15 [place] [address] 06/25/11 06/21/15 Julia Eric RN 06/27/11 06/21/15 Medardo Casey RN 06/29/11 06/21/15 Claribel Bassett APRN [address] [facility] [address] [place] [address] 07/02/11 06/21/15 Glenn Aldana, RN 11/07/11 06/21/15 Karissa Nice RN 02/18/12 06/21/15 Janeen Waddell RN 03/05/12 06/21/15 Monica Orr RN 05/18/12 06/21/15 Simi Crump, SERGE [address] [facility] [address] [place] [address] 05/29/12 06/21/15 Chica Nick RN 06/01/12 06/21/15 Joan Sen RN 06/21/12 06/21/15 documented as of this encounter
--- NOTE | 2024-12-16 10:27 | PC.NURSE ---
Tele neuro team called RN at 0930. This RN spoke with Frannie SHAHID with tele neuro. Update provided by RN regarding pt status including why she was moved to step down over night. FLORAL SPECIALIST told RN that she would recommend another MRI and possibly an EEG. Frannie SHAHID told RN that she would call Dr. Crowe directly regarding her recommendations and for further orders to be placed. Dr. Crowe's phone number provided to Frannie SHAHID with tele neuro.
[2024-12-16] MEDS: CEFTRIAXONE 1,000 MG in 0.9 % SODIUM CHLORIDE 50 ML 100 MG IV (11:13)
[2024-12-16] MEDS: 0.9 % SODIUM CHLORIDE 1,000 ML 100 ML IV ×2 (11:16→21:26)
[2024-12-16] MEDS: KETOROLAC TROMETHAMINE 30 MG/ML VIAL IVP (11:42)
--- NOTE | 2024-12-16 13:51 | PC.NURSE ---
Tele neuro Frannie SHAHID saw pt at this time. Pt drowsy but able to follow commands, pt answers questions appropriately. Frannie SHAHID with tele neuro team told RN to monitor over night and call back with any changes. States that there is no recommendations other than that at this time. Dr. Crowe notified about this and Frannie SHAHID said that she would call Dr. Crowe as well to update him on the plan.
--- NOTE | 2024-12-16 18:13 | P.CACN_ITS ---
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 Patient denies any prior cardiac history or any arrhythmias. She presented to the hospital because of severe headache. Also she reports that she had left-sided chest pain she describes it as squeezing pain which was persistent. Her EKG showed sinus bradycardia however no acute changes. Troponin was negative. The chest pain resolved. Apparently patient had significant bradycardia particularly during the nighttime with heart rate reported by the nurse to be in the 30s but reviewing all her strips and EKGs the lowest heart rate I saw is a 41. Patient reports that sometimes she feels dizzy when she stands up however she denies any history of syncope. She does not drink a lot of fluids. She denies chest discomfort with exertion. She denies shortness of breath with exertion or orthopnea or paroxysmal nocturnal dyspnea. She denies palpitations. She denies leg edema or discomfort on exertion. She thinks that she can walk on treadmill. Of note just with the conversation with heart her heart rate went up to 69. Also at some point this admission her blood pressure was severely high and she was started on losartan. The nurse reports that sometimes her blood pressure drops while she is sleeping. The patient states that she is not aware that she snores but she sometimes wake up gasping for air and she feels as if she has obstruction in her airways. Review of Systems ROS Narrative All systems were reviewed and they were negative except for the of positives noted in the history [facility] Medical History (Updated 12/16/24 @ 18:26 by Georgia Strange MD) Hx of headache ?Z87.898 - Personal history of other specified conditions (ICD-10) HTN (hypertension) ?I10 - Essential (primary) hypertension (ICD-10) Asthma ?J45.909 - Unspecified asthma, uncomplicated (ICD-10) COPD (chronic obstructive pulmonary disease) ?J44.9 - Chronic obstructive pulmonary disease, unspecified (ICD-10) Prediabetes ?R73.03 - Prediabetes (ICD-10) Hx of drug abuse ?F19.11 - Other psychoactive substance abuse, in remission (ICD-10) Stomach ulcer ?K25.9 - Gastric ulcer, unspecified as acute or chronic, without hemorrhage or perforation (ICD-10) History of intestine removal ?Z90.49 - Acquired absence of other specified parts of digestive tract (ICD- 10) Degenerative disc disease Tardive dyskinesia ?G24.01 - Drug induced subacute dyskinesia (ICD-10) Hx of myocardial infarction ?I25.2 - Old myocardial infarction (ICD-10) Hx of completed stroke ?Z86.73 - Personal history of transient ischemic attack (TIA), and cerebral i nfarction without residual deficits (ICD-10) Surgical History (Updated 12/13/24 @ 20:19 by Priscila Hernandez RN) Hx of hernia repair ?Z98.890 - Other specified postprocedural states (ICD-10) ?Z87.19 - Personal history of other diseases of the digestive system (ICD-10) Hx of tonsillectomy ?Z90.89 - Acquired absence of other organs (ICD-10) H/O: hysterectomy ?Z90.710 - Acquired absence of both cervix and uterus (ICD-10) Hx of neck surgery ?Z98.890 - Other specified postprocedural states (ICD-10) Family History (Updated 12/13/24 @ 20:19 by Priscila Hernandez RN) Mother Family history of cancer Family history of diabetes mellitus Social History (Updated 12/13/24 @ 20:20 by Priscila Hernandez RN) Within the past year, how often did you have a drink containing alcohol: never Score interpretation: A score less than 3 is consistent with normal alcohol consumption. Smoking status: Never smoker Non-prescribed substance use: former substance user Highest level of school completed/degree received: 9th grade Are you now , , , , never or living with a partner: never In a typical week, how many times do you talk on the telephone with family, friends, or neighbors: twice per week How often do you get together with friends or relatives: twice per week Little interest or pleasure in doing things: not at all Feeling down, depressed, or hopeless: not at all Feel stressed/tense/nervous/anxious/difficulty sleeping: only a little Do you think of yourself as: lesbian/ventura/homosexual Gender Identity: female Meds Home Medications and Allergies Home Medications ?Medication ?Instructions ?Recorded ?Confirmed ?Type acetaminophen 500 mg capsule 500 mg PO BID PRN fever o r pain 12/13/24 12/13/24 History deutetrabenazine 30 mg 30 mg PO DAILY 12/13/2411/22 History tablet,extended release 24 hr (Austedo XR) diphenhydramine HCl 25 mg capsule 25 mg PO Q8H PRN all ergy symptoms 12/13/24 12/13/24 History (Benadryl) hydroxyzine HCl 25 mg tablet 25 mg PO Q6H PRN anxiety 12/13/24 12/13/24 History ibuprofen 800 mg tablet 800 mg PO BID 12/13/2412/13 History lumateperone 42 mg capsule 42 mg PO DAILY 12/13/24 History (Caplyta) melatonin 10 mg capsule 10 mg PO DAILY 12/13/2411/22 History mirtazapine 7.5 mg tablet 7.5 mg PO .QHS 12/13/2411/22 History naltrexone 50 mg tablet 50 mg PO DAILY 12/13/2411/22 History polyethylene glycol 3350 17 17 g PO DAILY PRN constipa tion 12/13/24 12/14/24 History gram/dose oral powder (Miralax) sertraline 100 mg tablet (Zoloft) 100 mg PO DAILY 11/2212/13/24 History Allergies Allergy/AdvReac Type Severity Reaction Status Date / Time aspirin Allergy Unknown Verified 12/13/24 16:03 Penicillins Allergy Unknown Verified 12/13/24 16:03 quetiapine (From Seroquel) Allergy Unknown Verified 12/13/24 16:03 ziprasidone (From Geodon) Allergy Unknown Verified 12/13/24 16:03 Exam Narrative Exam Narrative: She is alert, oriented, not in apparent distress, she has constant movement in her mouth due to tardive dyskinesia HEENT within normal limits Neck supple, normal range of motion, no carotid bruit, jugular venous pressure is normal Lungs clear to auscultation without rales or rhonchi or wheezes Cardiovascular system regular rate and rhythm, normal S1 and S2, no gallop or murmur or click Abdomen soft benign next Extremities no edema or cyanosis or clubbing Constitutional Vital Signs, click to edit/add: Last Vital Signs Temp 98.5 F 12/16/24 16:00 Pulse 64 12/16/24 18:00 Resp 21 H 12/16/24 18:00 BP 155/92 H 12/16/24 16:01 Pulse Ox 97 12/16/24 18:00 O2 Del Method Room Air 12/16/24 04:00 Results Labs and Meds Lab results: Cardiac Enzymes 12/16/24 Range/Units 06:10 AST 15 (15-37) U/L CBC 12/16/24 Range/Units 06:10 WBC 5.9 (4.0-11.0) 10^3/uL RBC 4.72 (4.20-5.40) 10^6/uL Hgb 14.2 (12.0-16.0) g/dL Hct 41.9 (36.0-48.0) % Plt Count 249 (150-450) 10^3/uL Neut # (Auto) 3.4 (1.4-6.5) 10^3/uL Lymph # (Auto) 1.6 (1.2-3.8) 10^3/uL Cotton # (Auto) 0.6 (0.3-0.8) 10^3/uL Eos # (Auto) 0.2 (0.0-0.7) 10^3/uL Baso # (Auto) 0.1 (0.0-0.1) 10^3/uL Comprehensive Metabolic Panel 12/16/24 Range/Units 06:10 Sodium 140 (136-145) mmol/L Potassium 3.9 (3.5-5.1) mmol/L Chloride 104 (98-107) mmol/L Carbon Dioxide 28.1 (21.0-32.0) mmol/L BUN 20.0 H (7.0-18.0) mg/dL Creatinine 0.73 (0.55-1.02) mg/dL Glucose 105 (74-106) mg/dL Calcium 8.9 (8.5-10.1) mg/dL AST 15 (15-37) U/L ALT 35 (14-59) U/L Alkaline Phosphatase 138 H (46-116) U/L Total Protein 7.3 (6.4-8.2) g/dL Albumin 3.3 L (3.4-5.0) g/dL Intake and Output 12/16/24 12/16/24 12/16/24 07:59 15:59 23:59 Intake Total 100 / 1710 1200 / 1200 Output Total 400 / 2100 350 / 350 Balance -300 / -390 850 / 850 Intake: IV 100 / 1100 1200 / 1200 0.9 % Sodium Chloride 1,000 ml 1000 / 1000 @ 1000 mls/hr IV .Q1H ONE Rx#: [id number] Acetaminophen 1,000 mg In 100 100 / 100 ml @ 400 mls/hr IV ONCE ONE Rx# :[id number] Ceftriaxone 1,000 mg In 0.9 % 50 / 50 Sodium Chloride 50 ml @ 100 mls /hr IV Q24H [facility] Rx#:[id number] Levofloxacin in Dextrose 5 % 150 / 150 750 mg In 150 ml @ 100 mls/hr IV Q24H [facility] Rx#:[id number] Output: Urine 400 / 2100 350 / 350 She had many EKGs this admission all of them showed sinus bradycardia in the 40s rule out old septal infarct, nonspecific T wave Echo 12/14/2024 QUALITY: Technical quality was good. Limited echocardiogram per physician order. LEFT VENTRICLE: Normal chamber size. Proximal septal hypertrophy (sigmoid septum). Normal systolic function. Estimated left ventricular ejection fraction is 65-70 %. LV EF: Normal left ventricular ejection fraction, (>55%). DIASTOLIC: ATRIAL SEPTUM: LEFT ATRIUM: Mild dilatation. RIGHT ATRIUM: Normal chamber size. RIGHT VENTRICLE: Normal chamber size. Normal systolic function. TRICUSPID VALVE: Normal mobility and thickness. MITRAL VALVE: Normal mobility and thickness. There is no mitral annular calcification. AORTIC VALVE: Normal trileaflet appearance. No visible sclerosis. Normal leaflet mobility. No stenosis. AORTIC ROOT: Normal diameter and appearance, measuring 3.4 cm. PULMONIC VALVE: Normal thickness and mobility. PERICARDIUM: No evidence of pericardial effusion. IVC: Collapses with inspiration. IVC is normal in size. PLEURA: CONCLUSION: 1. Normal ventricular size and systolic function. LVEF is estimated at 65 to 70%. 2. No pericardial effusion. 3. Limited study performed with no Doppler interrogation as requested. Assessment and Plan Assessment and Plan (1) Bradycardia, sinus: Assessment and Plan: Mostly during sleeping hours or when she is lethargic, most likely represents high vagal tone, also she might have sleep apnea (2) Chest pain: Assessment and Plan: Atypical, there was no EKG changes and troponin negative. Echo showed normal left ventricle systolic function without Wall motion abnormalities (3) Sleep apnea syndrome: Assessment and Plan: Probably contributing to her bradycardia (4) Headache: (5) HTN (hypertension): Assessment and Plan: She was started on losartan (6) Prediabetes: (7) Stroke: Assessment and Plan: As a result of cocaine with residual right upper extremity weakness (8) Hx of drug abuse: Assessment and Plan: Currently in rehab for cocaine and alcohol detox (9) Tardive dyskinesia: Assessment and Plan: Due to psych medications (10) Stomach ulcer: (11) Asthma: (12) COPD (chronic obstructive pulmonary disease): Plan Continue monitoring heart rate and rhythm Check thyroid function Treadmill stress test to evaluate heart rate response to exercise and at the same time will evaluate for ischemia If heart rate response to exercise is normal I will send her home or to the detox center with 30-day event monitor Sleep study as outpatient Patient was also advised to increase her water intake to about 1500 to 2000 cc/day Adequate control of blood pressure, avoid beta-freddy and calcium channel freddy such as Cardizem and verapamil due to slow heart rate
[2024-12-17] VITALS (8 sets, daily range): BP systolic 141–153; BP diastolic 80–90; PULSE 52–69; TEMP 36.5–37; O2SAT 95–98
[2024-12-17] MEDS: ACETAMINOPHEN 500 MG TABLET PO (04:26)
[2024-12-17 05:41] LABS: TSH W/ REFLEX FT4 0.916 uIU/mL (0.358-3.740)
--- NOTE | 2024-12-17 06:51 | P.DS_ITS ---
DS: Providers Provider Date of admission: 12/13/24 19:40 Primary care physician: Dr. LEMUEL MCHUGH MD Consults: 12/13/24 Consult to Dietitian Routine Reason for consultation: weight loss Consult to Jewel Oliving Machine Operator Routine Reason for consult:: Other Other reason:: Needs stable home 12/14/24 Consult to Cardiology Routine Reason for consultation: bradycardia Has provider been notified: No 12/14/24 09:43 Consult to TeleNeurology Routine Reason for consultation: severe headache DS: Diagnosis Discharge Diagnosis (1) Bradycardia, sinus: (2) Chest pain: (3) Sleep apnea syndrome: (4) Headache: (5) HTN (hypertension): (6) Prediabetes: (7) Stroke: (8) Hx of drug abuse: (9) Tardive dyskinesia: (10) Stomach ulcer: (11) Asthma: (12) COPD (chronic obstructive pulmonary disease): Plan Altered mental status-consult to telemetry stroke team, blood cultures are pending, start patient on IV antibiotics she does have positive urinalysis Bradycardia, sinus:-Continue to monitor, check thyroid Headache: Persisting but improved, more frontal With neuro HTN (hypertension): Improved Asthma, COPD (chronic obstructive pulmonary disease):-No cough throughout the evaluation, maintain current treatment plan Hx of drug abuse:-Close from clear mental status, some concern for possible bacteremia-no murmur, blood culture pending, started IV antibiotics Stomach ulcer: Protonix Evidence for acute UTI with abnormal urinalysis-check, started on antibiotics Elevated liver function test likely related to drug abuse-improved today, check ammonia level [id number] Admission status: With acute alteration in mental status, concern for possible sepsis, bacteremia at least, start antibiotics, medically necessary treatment will span 2 midnights. Inpatient status ? DS: Summary Hospital Course Hospital Course: Pt admitted from rehab facility with chest pain, had one episode of AMS which is likely withdrawal related. No further episodes of AMS or CP. Stress test neg,. cleared buy cardiology for d/c and needs 30 day event monitor, medication see list and follow up with PCP at OR from rehab Time Spent with Patient Time attestation: Total time spent providing and/or coordinating discharge services: Exam Constitutional Vital Signs, click to edit/add: Last Vital Signs Temp 98.6 F 12/17/24 04:37 Pulse 52 L 12/17/24 05:48 Resp 18 12/17/24 04:37 BP 153/80 H 12/17/24 04:37 Pulse Ox 98 12/17/24 04:37 O2 Del Method Room Air 12/17/24 04:37 Documenting provider has reviewed patient's vital signs: yes Common normals: apparent distress (Sedated) Chest Common normals: inspection of chest normal and palpation of chest normal Respiratory Common normals: normal respiratory effort, no retractions and clear to auscultation bilaterally Effort & inspection: decreased respiratory effort Cardio Common normals: regular rate, regular rhythm and no murmurs GI Common normals: Normal to inspection, nondistended, normoactive bowel sounds present Extremity Common normals: normal to inspection, normal capillary refill and no clubbing, cyanosis or edema Neuro Common normals: CN's II-XII intact bilaterally, moves all extremities and no focal motor deficits (With diffuse weakness 2-3/5 strength in production administrative assistant strength) DS: Data Data Completed and Pending Labs on day of discharge: Labs from last 24 hours 12/17/24 12/16/24 12/16/24 04:58 09:16 06:10 Sodium 140 Potassium 3.9 Chloride 104 Carbon Dioxide 28.1 Anion Gap 11.8 BUN 20.0 H Creatinine 0.73 Est GFR ( Amer) >60 Est GFR (Non-Af Amer) >60 BUN/Creatinine Ratio 27.4 Glucose 105 Calcium 8.9 Magnesium 1.9 Total Bilirubin 0.2 AST 15 ALT 35 Alkaline Phosphatase 138 H Ammonia 27 Total Protein 7.3 Albumin 3.3 L Globulin 4.0 Albumin/Globulin Ratio 0.8 TSH & Free T4 Interp 0.916 Discharge Plan Discharge Disposition: er Intermediate Care Fac Condition: Fair Discharge Medications: New cefdinir 300 mg capsule 600 mg PO DAILY Qty: 14 0RF Continued Austedo XR 30 mg tablet extended release 24 hr 30 mg PO DAILY ibuprofen 800 mg tablet 800 mg PO BID naltrexone 50 mg tablet 50 mg PO DAILY sertraline [Zoloft] 100 mg tablet 100 mg PO DAILY diphenhydramine HCl [Benadryl] 25 mg capsule 25 mg PO Q8H PRN (Reason: allergy symptoms) hydroxyzine HCl 25 mg tablet 25 mg PO Q6H PRN (Reason: anxiety) polyethylene glycol 3350 [Miralax] 17 gram/dose powder 17 g PO DAILY PRN (Reason: constipation) acetaminophen 500 mg capsule 500 mg PO BID PRN (Reason: fever or pain) mirtazapine 7.5 mg tablet 7.5 mg PO .QHS melatonin 10 mg capsule 10 mg PO DAILY Caplyta 42 mg capsule 42 mg PO DAILY Print Language: Estonian Forms: Portal Instructions
--- NOTE | 2024-12-17 07:56 | CM.NOTE ---
Rounds made with Dr. Crowe, pt will have stress test today. Possible discharge this afternoon depending on stress test results.
[2024-12-17] MEDS: NITROGLYCERIN 0.4 MG BOTTLE SL (08:39)
--- NOTE | 2024-12-17 08:41 | PC.NURSE ---
Nursing Note Cardiac Stress Test Reviewed: Medication, allergies and patient history reviewed. Stress Test: [x ] Patient tolerated stress test well. [ ] Patient unable to tolerate walking on treadmill. Switched to Lexiscan stress test. [ ] No chest pain noted per patient [x ] Chest pain that resolved prior to leaving stress lab. [ ] No dyspnea noted. [x ] Dyspnea that resolved prior to leaving stress lab. [x ] Patient left stress lab asymptomatic and hemodynamically stable. [ ] Patient taken to the Emergency Room due to non-resolving symptoms following stress test. [x ] Patient achieved target heart rate. [ ] Patient unable to achieve target heart rate. [ ] Aminophylline administered as reversal agent to Lexiscan (Regadenoson). [x ] Nitro administered. Nursing Comments:Pt was able to reach target HR but had 8/10 chest pain after the test. Pt stated that this was what brought her to the hospital in the first place and the pain was similar to every other time. 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 Pt was taken back to her room via WC.
[2024-12-17 08:50] LABS: Troponin I High Sensitivity 6.2 pg/mL (4.0-51.3)
[2024-12-17] MEDS: FOLIC ACID 1 MG TABLET PO (08:54)
[2024-12-17] MEDS: LOSARTAN POTASSIUM 25 MG TABLET PO (08:54)
[2024-12-17] MEDS: PANTOPRAZOLE SODIUM 40 MG VIAL IV (08:54)
[2024-12-17] MEDS: SERTRALINE HCL 100 MG TABLET PO (08:54)
[2024-12-17] MEDS: THIAMINE MONONITRATE (VIT B1) 100 MG TABLET PO (08:54)
[2024-12-17] MEDS: MULTIVITAMIN TABLET 1 TAB PO (08:54)
[2024-12-17] MEDS: LEVOFLOXACIN IN DEXTROSE 5 % 750 MG/150 ML PREMIX 100 MG IV (09:00)
[2024-12-17] MEDS: POLYETHYLENE GLYCOL 3350 17 GM POWDER PACKET PO (09:12)
--- NOTE | 2024-12-17 09:49 | SWNOTE1 ---
FILIBERTO did receive a call from [facility] and spoke to a nurse there. She voiced that the DON has told her that they are not able to take pt back due to pt needing more care and extensive follow up. She stated that pt had called a client at [facility] and told them everything that she had going on. The nurse at [facility] stated she called for an update from patient and she was not sure who to call to update them. SW expressed that we are unsure if pt is discharging today as she is having a stress test done. FILIBRETO expressed to nurse that SW spoke to Dr. Wilber PedersenBushnell) earlier in the week and he voiced pt can return. SW requested that the physician call SW or case management to discuss pt in further detail. SW also expressed that pt is from [place] and has an extensive history and SW feels that would be dumping the patient at the hospital. Nurse then voiced she thinks they would assist with placement elsewhere. Nurse at [facility] will have physician call SW or case management.
[2024-12-17] MEDS: CEFTRIAXONE 1,000 MG in 0.9 % SODIUM CHLORIDE 50 ML 100 MG IV (11:11)
--- NOTE | 2024-12-17 13:17 | SWNOTE1 ---
FILIBERTO spoke to case management and pt is able to be discharged back to [facility]. FILIBERTO and case management spoke with Dr. Merino at [facility]. Doctor was updated on pt's condition and discharge plan. Doctor at [facility] in agreement that pt can return. He would like FILIBERTO to fax over dc med rec, labs, diagnostic imaging, H&P, and dc summary. FILIBERTO faxed all over to [facility]. [facility] will be coming to pick patient up around 2:30. FILIBERTO notified nurse, FILIBERTO completed HCPOA with pt, FILIBERTO made copy for pt and also put copy in chart. FILIBERTO called registration and udpated them with HCPOA contact.
--- NOTE | 2024-12-17 13:23 | CM.NOTE ---
Called and spoke with Alexandra Zambrano in Cardio for 30 day event monitor, she will contact Cardiac rehab.
--- NOTE | 2024-12-17 13:38 | PC.NURSE ---
Patient education printed off via [facility] for bradycardia, headache and cefdinir due to discharge instruction area absent of patient education block.
--- NOTE | 2024-12-19 08:29 | PC.NURSE ---
[employer] reviewed Final Urine culture. [employer] gave the results to Dr. Walsh for review. No new orders at this time.
--- OUTSIDE RECORDS SUMMARY | 2024-12-19 11:24 | XMS_ITS | Encounter Summary ---
Author Organization [facility] tem Address [id number] [address] [place] [address] Care Team Providers Care [employer] Sales Consultant Name Role Phone Unavailable Primary Care Provider Unavailabl e Reason for Visit * Reason Comments Chest Pain Pt has been having i ntermittent chest pain for the last hour or so she states. She also states she was just discharged from [facility] on Friday for same issues. EMS states heart rate dropping into the 40's and that is when she would comlpain of the pain. * Auth/Cert (Routine) Specialty Diagnoses / Procedures Referred By Danielle duggan Referred To Contact Diagnoses Chest pain Chest pain, unspecified type Christina Oliveira MD [address] [place] [address] Phone: tel: fax: Referral ID Status Reason Start Date Expiration Date Visits Re quested Visits Authorized [id number] 1 1 Encounter Details Date Type Department Care Team (Late st Contact Info) Description 12/19/2024 11:24 AM EDT - Present Hospital Encounter [place] - Acute Care [address] [place] [id number] Ld Plata DO [address] [place] [address] Christina Oliveira MD [address] [place] [address] Sheri Quinn MD [address] [place] [id number] Chest pain, unspecified type (Primary Dx) Social History Tobacco Use Types Packs/Day Years Used Date Smoking Tobacco: Never Smokeless Tobacco: Never Alcohol Use Standard Drinks/Week Comments Not Currently 12 (1 standard drink = 0.6 oz pure alcohol) pt states she has not drank since 07/26/24 [facility] Utilities Answer Date Recorded In the past 12 months has th e electric, gas, oil, or water company threatened to shut off services in your home? No 12/19/2024 Overall Financial Resource Strain (CARDIA) Answe r Date Recorded How hard is it for you to pa y for the very basics like food, housing, medical care, and heating? Not very hard 08/18/2024 PRAPARE - Transportation Answer Date Re corded In the past 12 months, has l ack of transportation kept you from medical appointments or from getting medications? No 11/22 In the past 12 months, has l ack of transportation kept you from meetings, work, or from getting things needed for daily living? No 12/19/2024 Housing Instability Answer Date Recorde d Are you worried or concerned that in the next two months you may not have stable housing that you own, rent or stay in as a part of a household? No 12/19/2024 Hunger Screening Answer Date Recorded Within the past 12 months we worried whether our food would run out before we got money to buy more. Sometimes True 025 Within the past 12 months th e food we bought just didn't last and we didn't have money to get more. Sometimes True 12/19/2024 Comments No Sex and Gender Information Value Date Recorded Sex Assigned at Not on file Legal Sex Female 7:59 PM EST Gender Identity Not on file Sexual Orientation Not on file documented as of this encounter Last Filed Vital Signs Vital Sign Reading Time Taken Comments Blood Pressure 146/89 12/20/2024 11:35 AM EDT Pulse 61 12/20/2024 11:35 AM EDT Temperature 36.6 C (97.9 F) 12/20/2024 11:35 AM EDT Respiratory Rate 19 12/20/2024 11:35 AM EDT Oxygen Saturation 99% 12/20/2024 11:35 AM EDT Inhaled Oxygen Concentration - - Weight 84.5 kg (186 lb 3.2 oz) 12/19/2024 5:41 P M EDT Height 165.1 cm (5' 5 ) 12/19/2024 5:41 PM EDT Body Mass Index 30.99 12/19/2024 5:41 PM EDT documented in this encounter Functional Status documented as of this encounter H&P Notes * Sheri Quinn MD - 12/20/2024 10:32 AM EDT Images from the original note were not included. [facility] INTERNAL MEDICINE [facility] [address] [facility] [phone] Hospital Medicine History & Physical Patient: Eduarda Porter Date of : 1970 Room: [facility] PCP: No primary care provider on file. Admission date: 12/19/2024 11:24 AM Encounter date: 12/20/24 Hospital Day: 2 SUBJECTIVE Eduarda Porter is a 54 y.o. female who presents to the ED today by EMS from [facility], for chief complaint of chest pain. Pt states the pain is mainly on her left side and toward the middle. Pt stated that this started about an hour ago while she was just sitting there, she felt tired and then her leftarm felt funny, she got dizzy and sweaty, and then her chest started hurting. Pt describes the painas intermittent and like pressure. Pt states she did start a new blood pressure medication today. Pt states she was admitted on Friday at [place] for a headache and was released on Friday. Pt stateswhile there her heart rate had dropped, and she did take a stress test on Friday or that she did not pass. Pt stated they planned on her following up with cardio, and wearing a heart monitor for 30 days, which she currently has on. Pt has history of multiple strokes and NV's. EKG in ER shows sinus bradycardia. Chest x-ray negative for acute findings. No significant findings on lab work. Patient did just have a echocardiogram done in another hospital with LVEF of 65-70%. Patient willbe admitted for stress test cardiac evaluation if abnormal. Allergies: Aspirin, Geodon [ziprasidone hcl], Penicillin, and Seroquel [quetiapine] Prior to Admission medications Medication Sig Start Date End Date Taking? Authorizing Provider diphenhydrAMINE (BENADRYL) 25 mg capsule Take 1 capsule (25 mg total) by mouth in the morning and 1capsule (25 mg total) before bedtime. Yes Not In System Ref Prov hydrOXYzine (VISTARIL) 25 mg capsule Take 1 capsule (25 mg total) by mouth as needed in the morningand 1 capsule (25 mg total) as needed at noon and 1 capsule (25 mg total) as needed in the evening for itching. Yes Not In System Ref Prov lumateperone (CAPLYTA) 42 mg capsule capsule Take 1 capsule (42 mg total) by mouth in the morning. Yes Not In System Ref Prov mirtazapine (REMERON) 7.5 mg tablet Take 1 tablet (7.5 mg total) by mouth nightly. Yes Not In System Ref Prov naltrexone (REVIA) 50 mg tablet Take 1 tablet (50 mg total) by mouth in the morning. Yes Not In System Ref Prov Code Status: Full Code Past Medical History: Patient has a past medical history of COPD (chronic obstructive pulmonary disease) ([facility]), Dental disease, Myocardial infarction ([facility]), Peptic ulceration, Stroke ([facility]), and Visual impairment. Past Surgical History: Patient has a past surgical history that includes Hysterectomy and Neck surgery. Family History: Patient's family history includes Drug abuse in her father and mother. Social History: Patient reports that she has never smoked. She has never used smokeless tobacco. She reports that she does not currently use alcohol after a past usage of about 12.0 standard drinks of alcohol per week. She reports current drug use. Drugs: Cocaine and Crack cocaine. Review of Systems Review of Systems Constitutional: Negative for activity change, appetite change, chills, diaphoresis, fatigue and fever. HENT: Negative for tinnitus and trouble swallowing. Respiratory: Negative for cough, chest tightness, shortness of breath and wheezing. Cardiovascular: Positive for chest pain. Negative for palpitations and leg swelling. Gastrointestinal: Negative for abdominal pain, diarrhea, nausea and vomiting. Genitourinary: Negative for difficulty urinating. Musculoskeletal: Negative for gait problem. Skin: Negative for rash. Neurological: Negative for dizziness, syncope, speech difficulty, weakness, light-headedness, numbness and headaches. Psychiatric/Behavioral: Negative for sleep disturbance. OBJECTIVE BP 146/89 Pulse 61 Temp 36.6 ??C (97.9 ??F) (Temporal) Resp 19 Ht 165.1 cm (5' 5 ) Wt 84.5 kg (186 lb 3.2 oz) SpO2 99% BMI 30.99 kg/m?? Temp: [36.4 ??C (97.5 ??F)-37 ??C (98.6 ??F)] 36.6 ??C (97.9 ??F) Pulse: [47-68] 61 Resp: [13-20] 19 BP: (105-153)/(64-89) 146/89 SpO2: [96 %-99 %] 99 % O2 Device: None (Room air) O2 Flow Rate (L/min): [0 L/min] 0 L/min Intake/Output Summary (Last 24 hours) at 12/20/2024 1435 Last data filed at 12/20/2024 1000 Gross per 24 hour Intake 240 ml Output -- Net 240 ml Physical Exam Physical Exam Vitals and nursing note reviewed. Constitutional: General: She is not in acute distress. Appearance: She is obese. HENT: Head: Normocephalic and atraumatic. Right Ear: External ear normal. Left Ear: External ear normal. Nose: Nose normal. Mouth/Throat: Mouth: Mucous membranes are moist. Pharynx: Oropharynx is clear. Eyes: Extraocular Movements: Extraocular movements intact. Pupils: Pupils are equal, round, and reactive to light. Neck: Vascular: No carotid bruit or JVD. Cardiovascular: Rate and Rhythm: Regular rhythm. Bradycardia present. Pulses: Normal pulses. Comments: Sinus bradycardia noted on monitoring manager Pulmonary: Effort: Pulmonary effort is normal. Breath sounds: Normal breath sounds. No wheezing or rales. Abdominal: General: Bowel sounds are normal. Palpations: Abdomen is soft. Tenderness: There is no abdominal tenderness. There is no right CVA tenderness or left CVA tenderness. Musculoskeletal: Right lower leg: No edema. Left lower leg: No edema. Lymphadenopathy: Cervical: No cervical adenopathy. Skin: General: Skin is warm and dry. Capillary Refill: Capillary refill takes less than 2 seconds. Neurological: Mental Status: She is alert and oriented to person, place, and time. Sensory: No sensory deficit. Psychiatric: Mood and Affect: Mood normal. Behavior: Behavior normal. Thought Content: Thought content normal. Judgment: Judgment normal. Medications Scheduled: diphenhydrAMINE, 25 mg, oral, BID enoxaparin (LOVENOX) injection, 40 mg, subcutaneous, Daily lumateperone, 42 mg, oral, Daily mirtazapine, 7.5 mg, oral, Nightly naltrexone, 50 mg, oral, Daily sodium chloride, 3 mL, intravenous, Q12H MARCO sodium chloride, 3 mL, intravenous, Q12H MARCO Infusions: dextrose 5 % in water, 100 mL/hr sodium chloride 0.9 %, 20 mL/hr As Needed: acetaminophen alum-mag hydroxide-simeth dextrose dextrose 5 % in water dextrose 50 % in water (D50W) glucagon (human recombinant) hydrOXYzine magnesium sulfate magnesium sulfate nitroglycerin ondansetron potassium chloride OR potassium chloride OR potassium chloride IV (Adult) sennosides-docusate sodium sodium chloride sodium chloride sodium chloride sodium chloride 0.9 % Allergies: Aspirin, Geodon [ziprasidone hcl], Penicillin, and Seroquel [quetiapine] Labs Recent Results (from the past 24 hours) Comprehensive metabolic panel Collection Time: 12/20/24 5:21 AM Result Value Ref Range SODIUM 139 134 - 146 mmol/L POTASSIUM 4.0 3.5 - 5.0 mmol/L CHLORIDE 106 98 - 109 mmol/L CARBON DIOXIDE 25 22 - 32 mmol/L ANION GAP 8 5 - 15 mmol/L BLOOD UREA NITROGEN 15 5 - 23 mg/dL CREATININE 0.68 0.40 - 1.00 mg/dL GLUCOSE 91 65 - 99 mg/dL CALCIUM 9.1 8.5 - 10.5 mg/dL TOTAL PROTEIN 7.0 6.0 - 8.0 g/dL ALBUMIN 3.7 3.2 - 5.3 g/dL ALKALINE PHOSPHATASE 128 39 - 130 U/L AST 24 <=41 U/L ALT 34 (H) <=31 U/L BILIRUBIN,TOTAL 0.5 0.3 - 1.2 mg/dL EGFR Non-Race Dependent >90 >=60 ml/min/1.73sq.m Magnesium Collection Time: 12/20/24 5:21 AM Result Value Ref Range MAGNESIUM 2.0 1.8 - 2.6 mg/dL CBC auto differential Collection Time: 12/20/24 5:21 AM Result Value Ref Range WBC 5.0 4 - 11 x10E9/L RBC Count 4.48 3.8 - 5.2 X10E12/L Hemoglobin 13.8 11.7 - 15.5 g/dL Hematocrit 40.4 35 - 47 % MCV 90 80 - 100 fL MCH 30.8 27 - 34 pg MCHC 34.2 32 - 36 g/dL RDW 14.3 11.5 - 15 % Platelet Count 253 150 - 450 X10E9/L MPV 7.7 7 - 12 fL Neutrophils % 49.7 % Lymphocytes % 30.9 % Monocytes % 10.1 % Eosinophils % 8.2 % Basophils % 1.1 % Neutrophils Absolute (A) 2.5 1.5 - 6.6 10*3/uL Lymphocytes Absolute 1.6 1.0 - 3.5 10*3/uL Monocytes Absolute 0.5 0.0 - 0.9 10*3/uL Eosinophils Absolute 0.4 0.0 - 0.4 10*3/uL Basophils Absolute 0.1 0.0 - 0.2 10*3/uL Differential Type AUTOMATED DIFFERENTIAL Extra Tubes Collection Time: 12/20/24 5:21 AM Narrative The following orders were created for panel order Extra Tubes. Procedure Abnormality Status --------- ------ Light Blue Top[[id number]] Final result SST TOP[[id number]] Final result Please view results for these tests on the individual orders. Light Blue Top Collection Time: 12/20/24 5:21 AM Result Value Ref Range Extra Tube Auto Resulted SST TOP Collection Time: 12/20/24 5:21 AM Result Value Ref Range Extra Tube Auto Resulted Radiology X-ray chest 1 view Result Date: 12/19/2024 Narrative: History: Chest pain Procedure: Chest AP portable upright Comparison: 12/13/2024 Findings:The heart and lungs show no acute findings, and the mediastinum and bo are grossly negative . No pneumothorax. Impression: No acute pulmonary process. Finalized by Nato Castellanos MD on 12/19/2024 11:47 AM HOSPITAL PROBLEM LIST Principal Problem: Chest pain, unspecified type Active Problems: Bipolar affective disorder in remission Class 1 obesity due to excess calories with body mass index (BMI) of 30.0 to 30.9 in adult Transaminitis ASSESSMENT & PLAN Chest pain: Previous echocardiogram reviewed from another facility. monitor and storage bin tender. Troponin and repeat troponin negative. Stress test ordered. We will involve Cardiology if stress test abnormal. Monitor kidney function and electrolytes daily. Replace electrolytes per protocol. History of substance abuse: From [facility]. Plan to discharge back to [facility] [place]. Admission orders placed and home medications reconciled. DVT prophylaxis: EPC's and Lovenox. DC planning: Discharge home later today versus tomorrow. Awaiting stress test results.. Sepsis suspected, no-not clinically evident at this time. RAYMOND Blunt, 12/20/2024 2:35 PM [facility] Internal Medicine 7AM-7PM & 7PM-7AM: EpicChat or page through On-Call [employer]. This note is dictated with the use of M*Modal. Please note that this dictation was completed with computer voice recognition software. Quite often unanticipated grammatical, syntax, homophones, and other interpretive errors are inadvertently transcribed by the computer software. Please disregard these errors. Please excuse any errors that have escaped final proofreading. RAYMOND Blunt 12/20/24 9118 Physician Attestation I, Sheri Quinn MD, personally performed a face to face diagnostic evaluation on this patient. I have reviewed the note authored by the advance practice provider including history, review of systems,physical examination,medical decision making and agree with the assessment and plan as written. I have seen and evaluated the patient, I have repeated the morin portions of the physical exam and concur with the SACHI findings. I have reviewed all laboratory findings and imaging reports/films. I agree with the plan as noted. Patient with history of polysubstance abuse,, bipolar is being admitted with chest pain. EKG shows sinus bradycardia with a heart rate 49 QTC of 426 check TSH level, trop 2-2. Lipase elevated at 46, ALT elevated at 33 check acute hepatitis surveillance monitor lipase level check cardiac stress test cardiac telemetry check urine tox screen documented in this encounter Consult Notes * HOMERO Randle - 12/20/2024 1:00 PM EDTAssociated Order(s): IP CONSULT TO NUTRITION SERVICES NUTRITION ADULT INITIAL EVALUATION NUTRITION ASSESSMENT Reason To Be Seen: Received consult from HEALTHCARE APPLICATIONS ANALYST for diet education. Hospital Occurrences: Pt admitted with Chest Pain, hx of polysubstance dependence, HTN, CVA, COPD, Admit Diagnosis: Patient Active Problem List Diagnosis Neurological deficit present Weakness Debility Polysubstance (excluding opioids) dependence ([facility]) Secondary hypertension Bipolar affective disorder in remission Cerebrovascular accident (CVA) ([facility]) Foraminal stenosis of cervical region Chest pain, unspecified type Past Medical History: Past Medical History: Diagnosis Date COPD (chronic obstructive pulmonary disease) ([facility]) Dental disease Myocardial infarction ([facility]) Peptic ulceration Stroke ([facility]) Visual impairment Past Surgical History: Past Surgical History: Procedure Laterality Date HYSTERECTOMY NECK SURGERY plates in neck Diet History: good appetite consumed 100% of a regular diet Allergies: Allergies Allergen Reactions Aspirin GI Bleeding Geodon [Ziprasidone Hcl] Hallucinations Penicillin Facial Swelling Seroquel [Quetiapine] muscle cramps Nutrition Focused Physical Findings-- No evidence of muscle wasting/malnutrition. As per nutrition flow sheet- Skin: Wound: Gastrointestinal: Edema: RLE Edema: +2 (12/20/24 0405) LLE Edema: +2 (12/20/24 040) Labs: Results from last 3 days Lab Units 12/20/24 0521 12/19/24 1144 SODIUM mmol/L 139 134 POTASSIUM mmol/L 4.0 4.1 CHLORIDE mmol/L 106 103 CO2 mmol/L 25 26 BUN mg/dL 15 17 CREATININE mg/dL 0.68 0.86 CALCIUM mg/dL 9.1 8.8 ALBUMIN g/dL 3.7 3.9 ALK PHOS U/L 128 126 ALT U/L 34* 33* AST U/L 24 20 Results from last 7 days Lab Units 12/20/24 0521 12/19/24 1144 GLUCOSE mg/dL 91 84 Results from last 3 days Lab Units 12/20/24 0521 MAGNESIUM mg/dL 2.0 No data from last 3 days. Results from last 3 days Lab Units 12/20/24 0521 12/19/24 1144 WBC x10E9/L 5.0 5.8 HEMOGLOBIN g/dL 13.8 13.7 HEMATOCRIT % 40.4 39.8 PLATELETS X10E9/L 253 247 MCV fL 90 91 Lab Results Component Value Date [id number] 304 08/18/2024 Lab Results Component Value Date FOLATE 11.4 08/18/2024 No results found for: IRON , TIBC , FERRITIN No results found for: IRONSAT Lab Results Component Value Date HGBA1C 5.9 (H) 08/18/2024 Lab Results Component Value Date CHOL 142 (L) 08/18/2024 Lab Results Component Value Date HDL 47 08/18/2024 No results found for: LIPIDPROF No results found for: VIDHYDROX Medications/ Parenteral: Medications Prior to Admission Medication Sig Dispense Refill Last Dose/Taking diphenhydrAMINE (BENADRYL) 25 mg capsule Take 1 capsule (25 mg total) by mouth in the morning and 1capsule (25 mg total) before bedtime. 12/19/2024 at 8:00 AM hydrOXYzine (VISTARIL) 25 mg capsule Take 1 capsule (25 mg total) by mouth as needed in the morningand 1 capsule (25 mg total) as needed at noon and 1 capsule (25 mg total) as needed in the evening for itching. 12/19/2024 at 8:00 AM lumateperone (CAPLYTA) 42 mg capsule capsule Take 1 capsule (42 mg total) by mouth in the morning. 12/19/2024 at 8:00 AM mirtazapine (REMERON) 7.5 mg tablet Take 1 tablet (7.5 mg total) by mouth nightly. 12/18/2024 at 9:00 PM naltrexone (REVIA) 50 mg tablet Take 1 tablet (50 mg total) by mouth in the morning. 12/19/2024 at 8:00 AM Current Facility-Administered Medications Medication Dose Route Frequency Provider Last Rate Last Admin acetaminophen (TYLENOL) tablet 650 mg 650 mg oral Q4H PRN RAYMOND Natarajan alum-mag hydroxide-simeth (MAALOX) 200-200-20 mg/5 mL suspension 30 mL 30 mL oral [facility] RAYMOND Natarajan dextrose (GLUTOSE) 40 % gel 15 g 15 g oral PRN RAYMOND Natarajan dextrose 5 % (D5W) infusion 100 mL/hr intravenous Continuous PRN RAYMOND Natarajan dextrose 50 % in water (D50W) 50% solution 25 mL 25 mL intravenous PRN RAYMOND Natarajan diphenhydrAMINE (BENADRYL) capsule 25 mg 25 mg oral BID Jean-Paul Hayes APRN-HEALTHCARE APPLICATIONS ANALYST 25 mg at 12/20/24 0932 enoxaparin (LOVENOX) syringe 40 mg 40 mg subcutaneous Daily Ruthie Rebollar APRN- HEALTHCARE APPLICATIONS ANALYST 40 mg at 12/20/24 06 glucagon HCL injection 1 mg 1 mg intramuscular PRN RAYMOND Natarajan hydrOXYzine (ATARAX) tablet 25 mg 25 mg oral TID PRN RAYMOND Blunt lumateperone (CAPLYTA) capsule 42 mg 42 mg oral Daily Jean-Paul Hayes APRN-NARENDRA magnesium sulfate IVPB 2000 mg/50 mL in iso-osmotic water (40 mg/mL premix) 2,000 mg intravenous PRN Ruthie Rebollar APRN-HEALTHCARE APPLICATIONS ANALYST magnesium sulfate IVPB 4000 mg/100 mL in iso-osmotic water (40 mg/mL premix) 4,000 mg intravenous PRN RAYMOND Natarajan mirtazapine (REMERON) tablet 7.5 mg 7.5 mg oral Nightly Jean-Paul Hayes APRN-HEALTHCARE APPLICATIONS ANALYST 7.5 mg at 051 naltrexone (REVIA) tablet 50 mg 50 mg oral Daily RAYMOND Blunt nitroglycerin (NITROSTAT) disintegrating tablet 0.4 mg 0.4 mg sublingual Q5 Min PRN Jean-Paul Hayes APRN-HEALTHCARE APPLICATIONS ANALYST 0.4 mg at 12/19/242222 ondansetron (PF) (ZOFRAN) injection 4 mg 4 mg intravenous Q6H PRN Taeler Rebollar, COURT COMMISSIONER-HEALTHCARE APPLICATIONS ANALYST potassium chloride (K-TAB,KLOR-CON) CR tablet 30-50 mEq 30-50 mEq oral PRN Taeler Rebollar, COURT COMMISSIONER-HEALTHCARE APPLICATIONS ANALYST Or potassium chloride (KAYCIEL) 20 mEq/15 mL solution 30-50 mEq 30-50 mEq oral PRN Taeler Rebollar, COURT COMMISSIONER-HEALTHCARE APPLICATIONS ANALYST Or potassium chloride IVPB 10 mEq/100 mL in water (0.1 mEq/mL premix) 10 mEq intravenous PRN Taeler Rebollar, COURT COMMISSIONER-HEALTHCARE APPLICATIONS ANALYST sennosides-docusate sodium (SENOKOT-S) 8.6-50 mg 1 tablet 1 tablet oral Q12H PRN Taeler Rebollar, COURT COMMISSIONER-HEALTHCARE APPLICATIONS ANALYST sodium chloride 0.9 % flush 3 mL 3 mL intravenous PRN Taeler Rebollar, COURT COMMISSIONER-HEALTHCARE APPLICATIONS ANALYST sodium chloride 0.9 % flush 3 mL 3 mL intravenous Q12H MARCO Taeler Rebollar, COURT COMMISSIONER-HEALTHCARE APPLICATIONS ANALYST sodium chloride 0.9 % flush 3 mL 3 mL intravenous PRN Taeler Rebollar, COURT COMMISSIONER-HEALTHCARE APPLICATIONS ANALYST sodium chloride 0.9 % flush 3 mL 3 mL intravenous Q12H MRACO Taeler Rebollar, COURT COMMISSIONER- HEALTHCARE APPLICATIONS ANALYST 3 mL at sodium chloride 0.9 % flush bag 25 mL intravenous PRN Taeler Rebollar, COURT COMMISSIONER-HEALTHCARE APPLICATIONS ANALYST sodium chloride 0.9 % infusion 20 mL/hr intravenous Continuous PRN Taeler Rebollar, COURT COMMISSIONER-HEALTHCARE APPLICATIONS ANALYST Nutrition Findings/Summary: stable wt Anthropometrics: Ht Readings from Last 1 Encounters: 12/19/24 165.1 cm (5' 5 ) Wt Readings from Last 10 Encounters: 12/19/24 84.5 kg (186 lb 3.2 oz) 08/18/24 89.9 kg (198 lb 1.6 oz) 08/17/24 86.5 kg (190 lb 12.8 oz) [place] Body Weight: 57 kg Percent [place] Body Weight: 67 % Body Mass Index: Body mass index is 30.99 kg/m??. BMI Category: Obese class 1 (30.00- 34.99) Diet/ Nutrition Order Review: Dietary Orders (From admission, onward) Start Ordered 12/19/24 1737 Adult diet Regular Texture Diet effective now Question: Diet Type: Answer: Regular Texture 12/19/24 1736 Diet Intakes: Percent Meals Eaten (%): 100 (12/20/24 1000) 100 [x] 75-100% [] 50-75% [] 25-50% [] <25% [] NPO [] Unable to assess Intake/ Output Last 24 hrs: Intake/Output Summary (Last 24 hours) at 12/20/2024 1300 Last data filed at 12/20/2024 1000 Gross per 24 hour Intake 240 ml Output -- Net 240 ml Oral Supplemental Intake/ Acceptance: n/a [] 75-100% [] 50-75% [] 25-50% [] <25% [] NPO [] Unable to assess Malnutrition Status: Malnutrition Present: No NUTRITION DIAGNOSIS: No Diagnosis: No nutrition diagnosis at this time (NO 1.1) NUTRITION INTERVENTIONS: Coordination of nutrition care: spoke with RN and Clinical care huddle Nutrition education: Provided diet education re: a Heart healthy diet regimen. GOALS: Patient to meet calorie and protein needs NUTRITION MONITORING AND EVALUATION: Will monitor PO intakes, Weights, Nutrition Related Labs, POC & Follow. [x] Progressing toward goal [] Not progressing [] Progress toward goal declining [] Goal achieved Paty Monge RD.,LD. Clinical Dietitian [facility] [phone] 12/20/24 documented in this encounter ED Notes * Ld Plata DO - 12/19/2024 11:46 AM EDT Images from the original note were not included. [facility] Pt Name: Eduarda Porter Birthdate: 1970 Chief Complaint: Chief Complaint Patient presents with Chest Pain Pt has been having intermittent chest pain for the last hour or so she states. She also states she was just discharged from [facility] on Friday for same issues. EMS states heart rate droppinginto the 40's and that is when she would comlpain of the pain. History of Present Illness: Initial assessment done by Dr. Christina Plata at 11:46 AM Pt is a 54 y.o. female presenting to the ED today by EMS from [facility], for chief complaint of chestpain. Pt states the pain is mainly on her left side and toward the middle. Pt stated that this started about an hour ago while she was just sitting there, she felt tired and then her left arm felt funny, she got dizzy and sweaty, and then her chest started hurting. Pt describes the pain as intermittent and like pressure. Pt states she did start a new blood pressure medication today. Pt states shewas admitted on Friday at [place] for a headache and was released on Friday.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 auto differential (12/19/2024 11:44 AM EDT) WBC 5.8 4 - 11 x10E9/L 12/19/2024 12:01 PM EDT [facility] RBC Count 4.37 3.8 - 5.2 X10E12/L 12/19/2024 12:01 PM EDT [facility] Hemoglobin 13.7 11.7 - 15.5 g/dL 12/19/2024 12:01 PM EDT [facility] Hematocrit 39.8 35 - 47 % 12/19/2024 12:01 PM EDT [facility] MCV 91 80 - 100 fL 12/19/2024 12:01 PM EDT [facility] MCH 31.4 27 - 34 pg 12/19/2024 12:01 PM EDT [facility] MCHC 34.4 32 - 36 g/dL 12/19/2024 12:01 PM EDT [facility] RDW 14.5 11.5 - 15 % 12/19/2024 12:01 PM EDT [facility] Platelet Count 247 150 - 450 X10E9/L 12/19/2024 12:01 PM EDT [facility] MPV 7.7 7 - 12 fL 12/19/2024 12:01 PM EDT [facility] Neutrophils % 54.6 % 12/19/2024 12:01 PM EDT [facility] Lymphocytes % 26.7 % 12/19/2024 12:01 PM EDT [facility] Monocytes % 10.7 % 12/19/2024 12:01 PM EDT [facility] Eosinophils % 7.2 % 12/19/2024 12:01 PM EDT [facility] Basophils % 0.8 % 12/19/2024 12:01 PM EDT [facility] Neutrophils Absolute (A) 3.2 1.5 - 6.6 10*3/uL 12/19/2024 12:01 PM EDT [facility] Lymphocytes Absolute 1.6 1.0 - 3.5 10*3/uL 12/19/2024 12:01 PM EDT [facility] Monocytes Absolute 0.6 0.0 - 0.9 10*3/uL 12/19/2024 12:01 PM EDT [facility] Eosinophils Absolute 0.4 0.0 - 0.4 10*3/uL 12/19/2024 12:01 PM EDT [facility] Basophils Absolute 0.0 0.0 - 0.2 10*3/uL 12/19/2024 12:01 PM EDT [facility] Differential Type AUTOMATED DIFFERENTIAL 12/19/2024 12:01 PM EDT [facility] Blood Venous blood / Unknown Venipuncture / Unknown 12/19/2024 11:44 AM EDT 12/19/2024 11:46 AM EDT us Ld A Park DO LAB BLOOD ORDERABLES Final Resul t [facility] [address] [place] [address], [place] * ECG 12 lead (12/19/2024 11:28 AM EDT) 12/19/2024 11:2 8 AM EDT Narrative TRACEMASTERVUE - 12/19/2024 12:25 PM EDT us Ld A Park DO ECG ORDERABLES Final Result TRACEMASTERVUE documented in this encounter Visit Diagnoses Diagnosis Chest pain, unspecified type- Primary Chest pain, unspecified type Bipolar affective disorder in remission Class 1 obesity due to excess calories with body mass index (BMI) of 30.0 to 30.9 in adult Transaminitis Nonspecific elevation of levels of transaminase or lactic acid dehydrogenase (LDH) documented in this encounter Admitting Diagnoses Diagnosis Chest pain, unspecified type documented in this encounter Administered Medications Active Administered Medications - up to 3 most recent administrations Medication Order MAR Action Action Date Dose Rate Site acetaminophen (TYLENOL) tablet 650 mg 650 mg, oral, Every 4 hours PRN, mild pain - pain scale 1-3, temperature greater than 38 C, headaches, Temperature greater than 38.3 C, Starting on 12/19/24 at 1736, Scheduling/ADT, [Warning: Total Acetaminophen not to exceed more than 4 grams (4000 mg) in 24 hours] alum-mag hydroxide-simeth (MAALOX) 200-200-20 mg/5 mL suspension 30 mL 30 mL, oral, 4 times daily after meals and at bedtime as needed, dyspepsia, Starting on 12/19/24 at 1736, Scheduling/ADT, Look-alike/sound-alike medication - verify indication for use. Jamel rees., Indications: dyspepsiaIndications:dyspepsia dextrose (GLUTOSE) 40 % gel 15 g 15 g, oral, As needed, low blood sugar, blood glucose less than 70 mg/dL, Starting on 12/19/24 at 1736, Scheduling/ADT, If patient conscious and taking PO. If blood glucose is not greater than 70 mg/dL after initial treatment, repeat treatment. dextrose 5 % (D5W) infusion 100 mL/hr, intravenous, Continuous PRN, blood glucose less than 70 mg/dL, Starting on 12/19/24 at 1736, Scheduling/ADT, Use immediately following dextrose 50% or glucagon treatment for patients who are unconscious or NPO. Contact prescriber for additional orders. If blood glucose is not greater than 70 mg/dL after initial treatment, repeat treatment. dextrose 50 % in water (D50W) 50% solution 25 mL 25 mL, intravenous, As needed, low blood sugar, blood glucose less than 70 mg/dL and unconscious or NPO with IV access, Starting on 12/19/24 at 1736, Scheduling/ADT, Push over 1-3 minutes STAT. If conscious and not NPO, immediately follow with meal tray or high protein (7 grams) snack if tray not available. If NPO, initiate 5% dextrose in water at 100 mL/hr and contact prescriber for additional orders. If blood glucose is not greater than 70 mg/dL after initial treatment, repeat treatment. VESICANT (RED) Warning: HYPERTONIC solution. diphenhydrAMINE (BENADRYL) capsule 25 mg 25 mg, oral, 2 times daily, First dose on Fri12/19/24 at 2100, Look-alike/sound-alike medication - verify indication for use. Given 12/20/2024 9:32 AM EDT 25 mg Given 12/19/2024 8:51 PM EDT 25 mg enoxaparin (LOVENOX) syringe 40 mg 40 mg, subcutaneous, Daily, First dose on Fri12/20/24 at 0600, Scheduling/ADT, When Creatinine Clearance 30 mL/min or greater Look-alike/sound-alike medication - verify indication for use. Given 12/20/2024 6:05 AM EDT 40 mg Abdominal Tissue glucagon HCL injection 1 mg 1 mg, intramuscular, As needed, low blood sugar, blood glucose less than 70 mg/dL and unconscious or NPO without IV access., Starting on Fri12/19/24 at 1736, Scheduling/ADT, If conscious and not NPO, immediately follow with meal tray or high protein (7Grams) snack if tray not available. If NPO, initiate IV 5% Dextrose/Water at 100 mL/hr and contact prescriber for additional orders. If blood glucose is not greater than 70 mg/dL after initial treatment, repeat treatment. magnesium sulfate IVPB 2000 mg/50 mL in iso-osmotic water (40 mg/mL premix) 2,000 mg, intravenous, at 25 mL/hr, Administer over 120 Minutes, As needed, Magnesium level 1.7 to 1.9 mg/dL, or Ionized Magnesium level 0.45 to 0.5 mmol/L., Starting on Fri12/19/24 at 1736, Scheduling/ADT, Recheck magnesium level 4 hours after infusion complete. With each magnesium result continue the replacement orders as needed. magnesium sulfate IVPB 4000 mg/100 mL in iso-osmotic water (40 mg/mL premix) 4,000 mg, intravenous, at 25 mL/hr, Administer over 240 Minutes, As needed, Magnesium level 1.6 mg/dL or less, or Ionized Magnesium level 0.44 mmol/L or less, Starting on 12/19/24 at 1736, Scheduling/ADT, Recheck magnesium level 4 hours after infusion complete. With each magnesium result continue the replacement orders as needed. mirtazapine (REMERON) tablet 7.5 mg 7.5 mg, oral, Nightly, First dose on 12/19/24 at 2200 Given 12/19/2024 8:51 PM EDT 7.5 mg nitroglycerin (NITROSTAT) disintegrating tablet 0.4 mg 0.4 mg, sublingual, Every 5 min PRN, chest pain, Starting on Fri12/19/24 at 2002, May administer up to 3 doses per episode. Given 12/19/2024 10:23 PM EDT 0.4 mg Given 12/19/2024 8:53 PM EDT 0.4 mg ondansetron (PF) (ZOFRAN) injection 4 mg 4 mg, intravenous, Every 6 hours PRN, nausea, vomiting, Starting on 12/19/24 at 1736, Scheduling/ADT, Intravenous administration preferred to be given over 2-5 minutes. potassium chloride (K-TAB,KLOR-CON) CR tablet 30-50 mEq 30-50 mEq, oral, As needed, Potassium Supplementation, Starting on 12/19/24 at 1736, Scheduling/ADT, Progress to oral potassium replacement when patient tolerating oral intake. If dose administered, recheck potassium level 4 hours after last dose. For potassium level 3.4 to 3.8 mmol/L and GFR 30 mL/min or greater=30 mEq. For potassium level 3.1 to 3.3 mmol/L and GFR 30 mL/min or greater=40 mEq. For potassium level 3 mmol/L or less and GFR 30 mL/min or greater=50 mEq. Do not crush or chew. potassium chloride (KAYCIEL) 20 mEq/15 mL solution 30-50 mEq 30-50 mEq, oral, As needed, Potassium Supplementation, Starting on 12/19/24 at 1736, Scheduling/ADT, Progress to oral potassium replacement when patient tolerating oral intake. If dose administered, recheck potassium level 4 hours after last dose. For potassium level 3.4 to 3.8 mmol/L and GFR 30 mL/min or greater=30 mEq. For potassium level 3.1 to 3.3 mmol/L and GFR 30 mL/min or greater=40 mEq. For potassium level 3 mmol/L or less and GFR 30 mL/min or greater=50 mEq. Must dilute before use - Mix in 3-8 ounces of water or juice before administration When administering in feeding tube, flush before and after per policy and monitor potassium levels potassium chloride IVPB 10 mEq/100 mL in water (0.1 mEq/mL premix) 10 mEq, intravenous, at 100 mL/hr, Administer over 60 Minutes, As needed, POTASSIUM REPLACEMENT, Starting on 12/19/24 at 1736, Scheduling/ADT, IV if unable to use oral/enteral with the current dosing strategies Potassium level 3 mmol/L or less administer Potassium Chloride 50 mEq Potassium level 3.1 to 3.3 mmol/L administer Potassium Chloride 40 mEq Potassium level 3.4 to 3.8 mmol/L administer Potassium Chloride 30 mEq Use central line when applicable. Recheck potassium level 1 hour after total IVPB infusion complete, With each potassium result continue the replacement orders as needed VESICANT (YELLOW) Infuse each 10 mEq over a minimum of 1 hour. sennosides-docusate sodium (SENOKOT-S) 8.6-50 mg 1 tablet 1 tablet, oral, Every 12 hours PRN, constipation, Starting on 12/19/24 at 1736, Scheduling/ADT sodium chloride 0.9 % flush 3 mL 3 mL, intravenous, As needed, line care, before and after each intermittent use, Starting on 12/19/24 at 1736, Scheduling/ADT sodium chloride 0.9 % flush 3 mL 3 mL, intravenous, Every 12 hours scheduled, First dose on 12/19/24 at 2100, Scheduling/ADT sodium chloride 0.9 % flush 3 mL 3 mL, intravenous, As needed, line care, before and after each intermittent use, Starting on 12/19/24 at 1736, Scheduling/ADT sodium chloride 0.9 % flush 3 mL 3 mL, intravenous, Every 12 hours scheduled, First dose on 12/19/24 at 2100, Scheduling/ADT Given 12/20/2024 9:32 AM EDT 3 mL sodium chloride 0.9 % flush bag 25 mL, intravenous, at 100 mL/hr, Administer over 15 Minutes, As needed, line care, line care after IVPB administration, Starting on Fri12/19/24 at 1736, Scheduling/ADT sodium chloride 0.9 % infusion 20 mL/hr, intravenous, Continuous PRN, to maintain patency of lines, Starting on Fri12/19/24 at 1736, Scheduling/ADT Inactive Administered Medications - up to 3 most recent administrations Medication Order MAR Action Action Date Dose Rate Site kit for Tc 99m-sestamibi injection 10 millicurie 10 millicurie, intravenous, Once in imaging, contrast, Radiopharmaceutical, Starting on Fri12/20/24 at 0707, For 1 dose, Indications: diagnostic imagingIndications:diagnost ic imaging Given 12/20/2024 6:40 AM EDT 10 millicuries kit for Tc 99m-sestamibi injection 30 millicurie 30 millicurie, intravenous, Once in imaging, contrast, Radiopharmaceutical, Starting on Fri12/20/24 at 0707, For 1 dose, Indications: diagnostic imagingIndications:diagnost ic imaging Given 12/20/2024 8:33 AM EDT 30 millicuries maalox-lidocaine (GI COCKTAIL) 3:1 oral suspension 40 mL 40 mL, oral, Once, On Fri12/19/24 at 1410, For 1 dose Given 12/19/2024 2:12 PM EDT 40 mL regadenoson (LEXISCAN) injection 0.4 mg 0.4 mg, intravenous, Once, On Fri12/20/24 at 0745, For 1 dose, Administer over 10 seconds followed by 5 mL saline flush. Given 12/20/2024 8:33 AM EDT 0.4 mg sodium chloride 0.9 % flush 10 mL 10 mL, intravenous, Once in imaging, line care, Nuclear Medicine, Starting on Fri12/20/24 at 0707, For 1 dose Given 12/20/2024 8:33 AM EDT 10 mL sodium chloride 0.9 % flush 10 mL 10 mL, intravenous, Once in imaging, line care, Nuclear Medicine, Starting on Fri12/20/24 at 0707, For 1 dose Given 12/20/2024 6:40 AM EDT 10 mL documented in this encounter Active and Recently Administered Medications Times are shown in EDT. Scheduled Medication Order 12/18/2024 12/19/2024 12/20/2024 diphenhydrAMINE (BENADRYL) capsule 25 mg 25 mg, oral, 2 times daily, First dose on Fri12/19/24 at 2100, Look-alike/sound-alike medication - verify indication for use. 2050 (Given - Provider: Simi Rice RN) 931 (Given - Provider: Jewell Card RN)2100 (Due) enoxaparin (LOVENOX) syringe 40 mg 40 mg, subcutaneous, Daily, First dose on Fri12/20/24 at 0600, Scheduling/ADT, When Creatinine Clearance 30 mL/min or greater Look-alike/sound-alike medication - verify indication for use. 604 (Given - Provid er: Simi Rice RN) lumateperone (CAPLYTA) capsule 42 mg 42 mg, oral, Daily, First dose on Fri12/20/24 at 0900, Administer with or without food. Avoid grapefuit juice. 0900 (Not Given - Provider: Jewell Card RN - Reason: Medication not available) maalox-lidocaine (GI COCKTAIL) 3:1 oral suspension 40 mL (COMPLETED) 40 mL, oral, Once, On Fri12/19/24 at 1410, For 1 dose 1412 (Given - Provider: Surjit Marr Jr., RN) mirtazapine (REMERON) tablet 7.5 mg 7.5 mg, oral, Nightly, First dose on Fri12/19/24 at 2200 2050 (Given - Provider: Simi Rice RN)2199 (Canceled Entry - Provider: Simi Rice RN) 2199 (Due) naltrexone (REVIA) tablet 50 mg 50 mg, oral, Daily, First dose on Fri12/20/24 at 0900, Look-alike/sound-alike medication - verify indication for use. 0900 (Not Given - Provider: Jewell Card RN - Reason: Medication not available) regadenoson (LEXISCAN) injection 0.4 mg (COMPLETED) 0.4 mg, intravenous, Once, On Fri12/20/24 at 0745, For 1 dose, Administer over 10 seconds followed by 5 mL saline flush. 0833 (Given - Provid er: Ileana Tolentino RN) sodium chloride 0.9 % flush 3 mL 3 mL, intravenous, Every 12 hours scheduled, First dose on 12/19/24 at 2100, Scheduling/ADT 2100 (Canceled Entry - Provider: Simi Rice RN) 0900 (Not Given - Provider: Jewell Card RN - Reason: Other - Comment: duplicate)2100 (Due) sodium chloride 0.9 % flush 3 mL 3 mL, intravenous, Every 12 hours scheduled, First dose on 12/19/24 at 2100, Scheduling/ADT 2100 (Canceled Entry - Provider: Simi Rice RN) 0932 (Given - Provider: Jewell Card RN)2100 (Due) PRN Medication Order 12/18/2024 12/19/2024 12/20/2024 acetaminophen (TYLENOL) tablet 650 mg 650 mg, oral, Every 4 hours PRN, mild pain - pain scale 1-3, temperature greater than 38 C, headaches, Temperature greater than 38.3 C, Starting on 12/19/24 at 1736, Scheduling/ADT, [Warning: Total Acetaminophen not to exceed more than 4 grams (4000 mg) in 24 hours] alum-mag hydroxide-simeth (MAALOX) 200-200-20 mg/5 mL suspension 30 mL 30 mL, oral, 4 times daily after meals and at bedtime as needed, dyspepsia, Starting on 12/19/24 at 1736, Scheduling/ADT, Look-alike/sound-alike medication - verify indication for use. Jamel rees., Indications: dyspepsia dextrose (GLUTOSE) 40 % gel 15 g 15 g, oral, As needed, low blood sugar, blood glucose less than 70 mg/dL, Starting on 12/19/24 at 1736, Scheduling/ADT, If patient conscious and taking PO. If blood glucose is not greater than 70 mg/dL after initial treatment, repeat treatment. dextrose 5 % (D5W) infusion 100 mL/hr, intravenous, Continuous PRN, blood glucose less than 70 mg/dL, Starting on 12/19/24 at 1736, Scheduling/ADT, Use immediately following dextrose 50% or glucagon treatment for patients who are unconscious or NPO. Contact prescriber for additional orders. If blood glucose is not greater than 70 mg/dL after initial treatment, repeat treatment. dextrose 50 % in water (D50W) 50% solution 25 mL 25 mL, intravenous, As needed, low blood sugar, blood glucose less than 70 mg/dL and unconscious or NPO with IV access, Starting on 12/19/24 at 1736, Scheduling/ADT, Push over 1-3 minutes STAT. If conscious and not NPO, immediately follow with meal tray or high protein (7 grams) snack if tray not available. If NPO, initiate 5% dextrose in water at 100 mL/hr and contact prescriber for additional orders. If blood glucose is not greater than 70 mg/dL after initial treatment, repeat treatment. VESICANT (RED) Warning: HYPERTONIC solution. glucagon HCL injection 1 mg 1 mg, intramuscular, As needed, low blood sugar, blood glucose less than 70 mg/dL and unconscious or NPO without IV access., Starting on 12/19/24 at 1736, Scheduling/ADT, If conscious and not NPO, immediately follow with meal tray or high protein (7Grams) snack if tray not available. If NPO, initiate IV 5% Dextrose/Water at 100 mL/hr and contact prescriber for additional orders. If blood glucose is not greater than 70 mg/dL after initial treatment, repeat treatment. hydrOXYzine (ATARAX) tablet 25 mg 25 mg, oral, 3 times daily PRN, itching, Starting on 12/19/24 at 2003, Look-alike/sound-alike medication - verify indication for use. kit for Tc 99m-sestamibi injection 10 millicurie (COMPLETED) 10 millicurie, intravenous, Once in imaging, contrast, Radiopharmaceutical, Starting on Fri12/20/24 at 0707, For 1 dose, Indications: diagnostic imaging 0640 (Given - Provid er: Ester Piedra - Comment: 10.3 mCi Cardiolite) kit for Tc 99m-sestamibi injection 30 millicurie (COMPLETED) 30 millicurie, intravenous, Once in imaging, contrast, Radiopharmaceutical, Starting on Fri12/20/24 at 0707, For 1 dose, Indications: diagnostic imaging 0833 (Given - Provid er: Ester Piedra - Comment: 30.8 mCi Cardiolite) magnesium sulfate IVPB 2000 mg/50 mL in iso-osmotic water (40 mg/mL premix) 2,000 mg, intravenous, at 25 mL/hr, Administer over 120 Minutes, As needed, Magnesium level 1.7 to 1.9 mg/dL, or Ionized Magnesium level 0.45 to 0.5 mmol/L., Starting on 12/19/24 at 1736, Scheduling/ADT, Recheck magnesium level 4 hours after infusion complete. With each magnesium result continue the replacement orders as needed. magnesium sulfate IVPB 4000 mg/100 mL in iso-osmotic water (40 mg/mL premix) 4,000 mg, intravenous, at 25 mL/hr, Administer over 240 Minutes, As needed, Magnesium level 1.6 mg/dL or less, or Ionized Magnesium level 0.44 mmol/L or less, Starting on 12/19/24 at 1736, Scheduling/ADT, Recheck magnesium level 4 hours after infusion complete. With each magnesium result continue the replacement orders as needed. nitroglycerin (NITROSTAT) disintegrating tablet 0.4 mg 0.4 mg, sublingual, Every 5 min PRN, chest pain, Starting on 12/19/24 at 2002, May administer up to 3 doses per episode. 2052 (Given - Provider: Simi Rice RN)2222 (Given - Provider: Simi Rice, MARCELO) ondansetron (PF) (ZOFRAN) injection 4 mg 4 mg, intravenous, Every 6 hours PRN, nausea, vomiting, Starting on 12/19/24 at 1736, Scheduling/ADT, Intravenous administration preferred to be given over 2-5 minutes. potassium chloride (K-TAB,KLOR-CON) CR tablet 30-50 mEq(Linked Group 1) 30-50 mEq, oral, As needed, Potassium Supplementation, Starting on 12/19/24 at 1736, Scheduling/ADT, Progress to oral potassium replacement when patient tolerating oral intake. If dose administered, recheck potassium level 4 hours after last dose. For potassium level 3.4 to 3.8 mmol/L and GFR 30 mL/min or greater=30 mEq. For potassium level 3.1 to 3.3 mmol/L and GFR 30 mL/min or greater=40 mEq. For potassium level 3 mmol/L or less and GFR 30 mL/min or greater=50 mEq. Do not crush or chew. potassium chloride (KAYCIEL) 20 mEq/15 mL solution 30-50 mEq(Linked Group 1) 30-50 mEq, oral, As needed, Potassium Supplementation, Starting on 12/19/24 at 1736, Scheduling/ADT, Progress to oral potassium replacement when patient tolerating oral intake. If dose administered, recheck potassium level 4 hours after last dose. For potassium level 3.4 to 3.8 mmol/L and GFR 30 mL/min or greater=30 mEq. For potassium level 3.1 to 3.3 mmol/L and GFR 30 mL/min or greater=40 mEq. For potassium level 3 mmol/L or less and GFR 30 mL/min or greater=50 mEq. Must dilute before use - Mix in 3-8 ounces of water or juice before administration When administering in feeding tube, flush before and after per policy and monitor potassium levels potassium chloride IVPB 10 mEq/100 mL in water (0.1 mEq/mL premix)(Linked Group 1) 10 mEq, intravenous, at 100 mL/hr, Administer over 60 Minutes, As needed, POTASSIUM REPLACEMENT, Starting on Fri12/19/24 at 1736, Scheduling/ADT, IV if unable to use oral/enteral with the current dosing strategies Potassium level 3 mmol/L or less administer Potassium Chloride 50 mEq Potassium level 3.1 to 3.3 mmol/L administer Potassium Chloride 40 mEq Potassium level 3.4 to 3.8 mmol/L administer Potassium Chloride 30 mEq Use central line when applicable. Recheck potassium level 1 hour after total IVPB infusion complete, With each potassium result continue the replacement orders as needed VESICANT (YELLOW) Infuse each 10 mEq over a minimum of 1 hour. sennosides-docusate sodium (SENOKOT-S) 8.6-50 mg 1 tablet 1 tablet, oral, Every 12 hours PRN, constipation, Starting on Fri12/19/24 at 1736, Scheduling/ADT sodium chloride 0.9 % flush 10 mL (COMPLETED) 10 mL, intravenous, Once in imaging, line care, Nuclear Medicine, Starting on 12/20/24 at 0707, For 1 dose 0833 (Given - Provid er: Ester Piedra) sodium chloride 0.9 % flush 10 mL (COMPLETED) 10 mL, intravenous, Once in imaging, line care, Nuclear Medicine, Starting on 12/20/24 at 0707, For 1 dose 0640 (Given - Provid er: Ester Piedra) sodium chloride 0.9 % flush 3 mL 3 mL, intravenous, As needed, line care, before and after each intermittent use, Starting on 12/19/24 at 1736, Scheduling/ADT sodium chloride 0.9 % flush 3 mL 3 mL, intravenous, As needed, line care, before and after each intermittent use, Starting on 12/19/24 at 1736, Scheduling/ADT sodium chloride 0.9 % flush bag 25 mL, intravenous, at 100 mL/hr, Administer over 15 Minutes, As needed, line care, line care after IVPB administration, Starting on 12/19/24 at 1736, Scheduling/ADT sodium chloride 0.9 % infusion 20 mL/hr, intravenous, Continuous PRN, to maintain patency of lines, Starting on 12/19/24 at 1736, Scheduling/ADT Linked Groups Order Group 1: potassium chloride (K-TAB,KLOR-CON) CR tablet 30-50 mEqJump to med 30-50 mEq, oral, As needed, Potassium Supplementation, Starting on 12/19/24 at 1736, Scheduling/ADT, Progress to oral potassium replacement when patient tolerating oral intake. If dose administered, recheck potassium level 4 hours after last dose. For potassium level 3.4 to 3.8 mmol/L and GFR 30 mL/min or greater=30 mEq. For potassium level 3.1 to 3.3 mmol/L and GFR 30 mL/min or greater=40 mEq. For potassium level 3 mmol/L or less and GFR 30 mL/min or greater=50 mEq. Do not crush or chew. Or potassium chloride (KAYCIEL) 20 mEq/15 mL solution 30-50 mEqJump to med 30-50 mEq, oral, As needed, Potassium Supplementation, Starting on 12/19/24 at 1736, Scheduling/ADT, Progress to oral potassium replacement when patient tolerating oral intake. If dose administered, recheck potassium level 4 hours after last dose. For potassium level 3.4 to 3.8 mmol/L and GFR 30 mL/min or greater=30 mEq. For potassium level 3.1 to 3.3 mmol/L and GFR 30 mL/min or greater=40 mEq. For potassium level 3 mmol/L or less and GFR 30 mL/min or greater=50 mEq. Must dilute before use - Mix in 3-8 ounces of water or juice before administration When administering in feeding tube, flush before and after per policy and monitor potassium levels Or potassium chloride IVPB 10 mEq/100 mL in water (0.1 mEq/mL premix)Jump to med 10 mEq, intravenous, at 100 mL/hr, Administer over 60 Minutes, As needed, POTASSIUM REPLACEMENT, Starting on Fri12/19/24 at 1736, Scheduling/ADT, IV if unable to use oral/enteral with the current dosing strategies Potassium level 3 mmol/L or less administer Potassium Chloride 50 mEq Potassium level 3.1 to 3.3 mmol/L administer Potassium Chloride 40 mEq Potassium level 3.4 to 3.8 mmol/L administer Potassium Chloride 30 mEq Use central line when applicable. Recheck potassium level 1 hour after total IVPB infusion complete, With each potassium result continue the replacement orders as needed VESICANT (YELLOW) Infuse each 10 mEq over a minimum of 1 hour. documented in this encounter
--- NOTE | 2024-12-20 13:29 | PM.STRESS ---
Stress Test Stress Test Allergies Allergy/AdvReac Type Severity Reaction Status Date / Time aspirin Allergy Unknown Verified 12/13/24 16:03 Penicillins Allergy Unknown Verified 12/13/24 16:03 quetiapine (From Seroquel) Allergy Unknown Verified 12/13/24 16:03 ziprasidone (From Geodon) Allergy Unknown Verified 12/13/24 16:03 Requesting physician: Georgia Strange Procedure: This was a Treadmill stress test performed at the [facility] on 12/13/2024. The patient was attached to electrocardiographic monitoring. Baseline vital signs and ECG were obtained. The patient exercised on the treadmill according to the Jaylon protocol. Total exercise time was 5 minutes and 2 seconds. The patient reached stage II of the Jaylon protocol and achieved 7 METS. The test was stopped due to target heart rate being achieved, shortness of breath, dizziness and chest pain. Resting heart rate was 51 bpm and peak heart rate was 150 bpm representing 90% of maximum predicted heart rate. Resting blood pressure was 145/75 and peak blood pressure was 150/84. General Information: Reason for Stress Test: Chest pain, sinus bradycardia. Cardiac History and Risk Factors: Hypertension, myocardial infarction. Resting 12 - Lead Electrocardiogram: Sinus bradycardia. Possible anterior infarct age undetermined. Stress Test: Protocol: Jaylon protocol. Exercise Capacity: Fair. Blood Pressure Response: Resting hypertension. Blunted blood pressure response to exercise. Rhythm: Sinus with no significant arrhythmias. ST - Response: No ischemic ST changes. Patient Response: Patient developed 8 out of 10 chest pain that resolved after 1 nitro sublingual. Pain is reported to be same as prior symptoms. Interpretation: 1. No evidence of ischemic ECG changes seen during treadmill exercise. 2. Duffy treadmill score of +1 is associated with intermediate risk for long-term cardiac events. 3. Fair functional capacity. 4. Patient developed chest pain with exercise that resolved after sublingual nitroglycerin.
--- OUTSIDE RECORDS SUMMARY | 2024-12-20 14:46 | XMS_ITS | Encounter Summary ---
Author Organization [employer] Address [id number] [address] [place] [address] Care Team Providers Care Irrigator Name Role Phone Unavailable Primary Care Provider Unavailabl e Encounter Details Date Type Department Care Team (Latest Contact Info) Description 12/19/2024 Travel Social History Tobacco Use Types Packs/Day Years Used Date Smoking Tobacco: Never Smokeless Tobacco: Never Alcohol Use Standard Drinks/Week Comments Not Currently 12 (1 standard drink = 0.6 oz pure alcohol) pt states she has not drank since 07/26/24 [facility] Utilities Answer Date Recorded In the [...] documented as of this encounter Functional Status documented as of this encounter Plan of [...]
--- OUTSIDE RECORDS SUMMARY | 2024-12-20 14:46 | XMS_ITS | Clinical Summary ---
Author Organization [employer] Address [id number] [address] [place] [address] Care Team Providers Care Reinforced Concrete Inspector Name Role Phone Unavailable Primary Care Provider Unavailabl e Allergies Active Allergy Reactions Criticality Noted Date Comments Aspirin GI Bleeding 12/19/2024 Ziprasidone Hcl Hallucinations 08/17/2024 Penicillin Facial Swelling 12/19/2024 Quetiapine muscle cramps 08/17/2024 Medications docusate sodium (COLACE) 50 mg capsule Take 1 capsule (50 mg total) by mouth 2 (two) times a day as needed for constipation . 12/20/19 25 Discontinued (Non-complia nce) diphenhydrAMIN E (BENADRYL) 25 mg capsule Take 1 capsule (25 mg total) by mouth in the morning and 1 capsule (25 mg total) before bedtime. Suspended hydrOXYzine (VISTARIL) 25 mg capsule Take 1 capsule (25 mg total) by mouth as needed in the morning and 1 capsule (25 mg total) as needed at noon and 1 capsule (25 mg total) as needed in the evening for itching. Suspended lisinopriL (PRINIVIL,ZEST RIL) 10 mg tablet Take 1 tablet (10 mg total) by mouth in the morning. 12/20/19 25 Discontinued (Non-complia nce) gabapentin (NEURONTIN) 300 mg capsuleIndicat ions:Neurologi parag deficit present,Weakne ss,Foraminal stenosis of cervical region Take 2 capsules (600 mg total) by mouth 3 (three) times a day. 90 capsule 5 12/20/19 25 Discontinued (Non-complia nce) DULoxetine (CYMBALTA) 60 mg capsule Take 1 capsule (60 mg total) by mouth in the morning. 30 capsule 5 12/20/19 Discontinued (Non-complia nce) lumateperone (CAPLYTA) 42 mg capsule capsule Take 1 capsule (42 mg total) by mouth in the morning. Suspended mirtazapine (REMERON) 7.5 mg tablet Take 1 tablet (7.5 mg total) by mouth nightly. Suspended naltrexone (REVIA) 50 mg tablet Take 1 tablet (50 mg total) by mouth in the morning. Suspended Active Problems Problem Noted Date Diagnosed Date Class 1 obesity due to exces s calories with body mass index (BMI) of 30.0 to 30.9 in adult 12/20/2024 Transaminitis 12/20/2024 Chest pain, unspecified type 12/19/2024 Foraminal stenosis of cervical region 08/20/2024 Weakness 08/18/2024 Debility 08/18/2024 Polysubstance (excluding opioids) dependence Secondary hypertension 08/18/2024 Bipolar affective disorder in remission 08/18/19 25 Cerebrovascular accident (CVA) 08/18/2024 Neurological deficit present 08/17/2024 Encounters Date Type Department Care Team Description 12/19/2024 11:24 AM EDT - Present Hospital Encounter [facility] - Acute Care [address] [place] [address] Ld Plata DO Shah, Jagruti Nimit, MD Muhammad, Ruqiyya T, MD Chest pain, unspecified type (Primary Dx) 12/19/2024 Travel 12/15/2024 Orders Only [facility] [address] [place] [address] [id number] Transcribe, Orders Support User Pain (Primary Dx) 12/14/2024 3:20 PM EDT Ancillary Procedure [facility] [address] [place] [phone] Pain 12/14/2024 11:10 AM EDT Ancillary Procedure [facility] [address] [place] [address] [phone] Pain 12/14/2024 10:40 AM EDT Ancillary Procedure [facility] [address] [place] [phone] Pain 12/14/2024 10:13 AM EDT - 12/17/2024 2:39 PM EDT Emergency [facility] [address] [place] [address] Discharge Disposition: Telemedicine Discharge 12/13/2024 4:45 PM EDT Ancillary Procedure [facility] [address] [place] [phone] Pain 12/13/2024 4:35 PM EDT Ancillary Procedure [facility] [address] [place] [phone] Pain from Last 3 Months Family History Medical History Relation Name Comments Drug abuse Father Drug abuse Mother Relation Name Status Comments Father Mother Social History Tobacco Use Types Packs/Day Years Used Date Smoking Tobacco: Never Smokeless Tobacco: Never Alcohol Use Standard Drinks/Week Comments Not Currently 12 (1 standard drink = 0.6 oz pure alcohol) pt states she has not drank since 07/26/24 [facility] Utilities Answer Date Recorded In [...] Mass Index 30.99 12/19/2024 5:41 PM EDT Plan of Treatment Health Maintenance Due Date Last Done Comments Depression Screening 1982 Adult BMI Follow Up Plan 1988 Zoster (Shingles) Vaccine (1 of 2) 2020 COVID-19 Vaccine (2 - 2023-2 5 season) 2024 03/10/2021 Influenza Vaccine 02/21/2025 09/06/2023, , 07/19/2018, Additional history exists Tobacco Screening 08/19/2025 08/19/2024 Adult BMI Screening 12/19/2025 12/19/2024 DTaP,Tdap and Td Vaccines (2 - Td or Tdap) 12/25/2027 12/24/2017 Pap Smear Discontinued 04/10/2022 Goals Goal Patient Goal Type Associated Problems Recent Progress Patient-Stated? Author DC to home General Yes Fallon Hathaway LSW Note: Evaluation of progress towards goal: In progress: DC to home today when her ride gets here. Medical Devices Not on file Procedures * The patient is currently admitted. [...] 1 VW STAT 12/19/2024 11:45 AM EDT EXTRA TUBES BLUE TOP Routine 12/19/2024 11:44 AM EDT EXTRA TUBES Routine 12/19/2024 11:44 AM EDT TROPONIN I, HIGH SENSITIVITY 0 HOUR STAT 12/19/2024 11:44 AM EDT LIPASE STAT 12/19/2024 11:44 AM EDT TROPONIN I, HIGH SENSITIVITY 0 HOUR STAT 12/19/2024 11:44 AM EDT COMPREHENSIVE METABOLIC PANEL STAT 12/19/2024 11:44 AM EDT B-TYPE NATRIURETIC PEPTIDE STAT 12/19/2024 11:44 AM EDT CBC WITH AUTO DIFFERENTIAL STAT 12/19/2024 11:44 AM EDT ECG 12-LEAD STAT 12/19/2024 11:28 AM EDT NON [facility] Routine 12/14/2024 3: 20 PM EDT Pain MR CERVICAL SPINE WO CONT Routine 12/14/2024 11:10 AM EDT Pain MR BRAIN WO CONT Routine 12/14/2024 10:[address] BRAIN WO CONT Routine 12/13/2024 4:45 PM EDT Pain XR CHEST 2 VWS Routine 12/13/2024 4:35 PM EDT Pain from Last 3 Months Results * SST TOP (12/20/2024 5:21 AM EDT) Extra Tube Auto Resulted 12/20/2024 7:01 AM EDT [facility] Blood Venous blood / Unknown 12/20/2024 5:21 AM EDT 12/20/2024 5:47 AM EDT Christina Oliveira MD LAB BLOOD ORDERABLES Final Result Performing Organization Address City/[facility]/ZIP Co de Phone Number [address] [place] [address], [place] * Light Blue Top (12/20/2024 5:21 AM EDT) Only the most recent of2 resultswithin the time period is included. Extra Tube Auto Resulted 12/20/2024 7:01 AM EDT [facility] Blood Venous blood / Unknown 12/20/2024 5:21 AM EDT 12/20/2024 5:47 AM EDT Christina Oliveira MD LAB BLOOD ORDERABLES Final Result Performing Organization Address City/[facility]/ZIP Co de Phone Number [address] [address], [place] * CBC auto differential (12/20/2024 5:21 AM EDT) Only the most recent of2 resultswithin the time period is included. WBC 5.0 4 - 11 x10E9/L 12/20/2024 5:54 AM EDT [facility] RBC Count 4.48 3.8 - 5.2 X10E12/L 12/20/2024 5:54 AM EDT [facility] Hemoglobin 13.8 11.7 - 15.5 g/dL 12/20/2024 5:54 AM EDT [facility] Hematocrit 40.4 35 - 47 % 12/20/2024 5:54 AM EDT [facility] MCV 90 80 - 100 fL 12/20/2024 5:54 AM EDT [facility] MCH 30.8 27 - 34 pg 12/20/2024 5:54 AM EDT [facility] MCHC 34.2 32 - 36 g/dL 12/20/2024 5:54 AM EDT [facility] RDW 14.3 11.5 - 15 % 12/20/2024 5:54 AM EDT [facility] Platelet Count 253 150 - 450 X10E9/L 12/20/2024 5:54 AM EDT [facility] MPV 7.7 7 - 12 fL 12/20/2024 5:54 AM EDT [facility] Neutrophils % 49.7 % 12/20/2024 5:54 AM EDT [facility] Lymphocytes % 30.9 % 12/20/2024 5:54 AM EDT [facility] Monocytes % 10.1 % 12/20/2024 5:54 AM EDT [facility] Eosinophils % 8.2 % 12/20/2024 5:54 AM EDT [facility] Basophils % 1.1 % 12/20/2024 5:54 AM EDT [facility] Neutrophils Absolute (A) 2.5 1.5 - 6.6 10*3/uL 12/20/2024 5:54 AM EDT [facility] Lymphocytes Absolute 1.6 1.0 - 3.5 10*3/uL 12/20/2024 5:54 AM EDT [facility] Monocytes Absolute 0.5 0.0 - 0.9 10*3/uL 12/20/2024 5:54 AM EDT [facility] Eosinophils Absolute 0.4 0.0 - 0.4 10*3/uL 12/20/2024 5:54 AM EDT [facility] Basophils Absolute 0.1 0.0 - 0.2 10*3/uL 12/20/2024 5:54 AM EDT [facility] Differential Type AUTOMATED DIFFERENTIAL 12/20/2024 5:54 AM EDT [facility] Blood Venous blood / Unknown Venipuncture / Unknown 12/20/2024 5:21 AM EDT 12/20/2024 5:45 AM EDT Ruthie Rebollar TEST [employer] LAB BLOOD ORDERABLES Ivonne l Result Performing Organization Address City/[facility]/ZIP Co de Phone Number [address] [place] [address], [place] * Magnesium (12/20/2024 5:21 AM EDT) MAGNESIUM 2.0 1.8 - 2.6 mg/dL 12/20/2024 6:07 AM EDT [facility] Blood Venous blood / Unknown Venipuncture / Unknown 12/20/2024 5:21 AM EDT 12/20/2024 5:45 AM EDT Ruthie Rebollar TEST [facility] LAB BLOOD ORDERABLES Ivonne l Result [address] [place] [address], [place] * (ABNORMAL) Comprehensive metabolic panel (12/20/2024 5:21 AM EDT) Only the most recent of2 resultswithin the time period is included. SODIUM 139 134 - 146 mmol/L 12/20/2024 6:07 AM EDT [facility] POTASSIUM 4.0 3.5 - 5.0 mmol/L 12/20/2024 6:07 AM EDT [facility] CHLORIDE 106 98 - 109 mmol/L 12/20/2024 6:07 AM EDT [facility] CARBON DIOXIDE 25 22 - 32 mmol/L 12/20/2024 6:07 AM EDT [facility] ANION GAP 8 5 - 15 mmol/L 12/20/2024 6:07 AM EDT [facility] BLOOD UREA NITROGEN 15 5 - 23 mg/dL 12/20/2024 6:07 AM EDT [facility] CREATININE 0.68 0.40 - 1.00 mg/dL 12/20/2024 6:07 AM EDT [facility] Comment:METHOD TRACEABLE TO IDUT STANDARD GLUCOSE 91 65 - 99 mg/dL 12/20/2024 6:07 AM EDT [facility] CALCIUM 9.1 8.5 - 10.5 mg/dL 12/20/2024 6:07 AM EDT [facility] TOTAL PROTEIN 7.0 6.0 - 8.0 g/dL 12/20/2024 6:07 AM EDT [facility] ALBUMIN 3.7 3.2 - 5.3 g/dL 12/20/2024 6:07 AM EDT [facility] ALKALINE PHOSPHATASE 128 39 - 130 U/L 12/20/2024 6:07 AM EDT [facility] AST 24 <=41 U/L 12/20/2024 6:07 AM EDT [facility] ALT 34(H) <=31 U/L 12/20/2024 6:07 AM EDT [facility] BILIRUBIN,TOTAL 0.5 0.3 - 1.2 mg/dL 12/20/2024 6:07 AM EDT [facility] EGFR Non-Race Dependent >90 >=60 ml/min/1.7 3sq.m 12/20/2024 6:07 AM EDT [facility] Comment: eGFR not reported due to non-numeric value for Creatinine. Reported eGFR is based on the CKD-EPI 2020 equation that does not use a race coefficient. Blood Venous blood / Unknown Venipuncture / Unknown 12/20/2024 5:21 AM EDT 12/20/2024 5:45 AM EDT Ruthie Rebollar TEST [employer] LAB BLOOD ORDERABLES Ivonne l Result Performing Organization Address City/[facility]/ZIP Co de Phone Number [address] [place] [address], [place] * Troponin I, High Sensitivity 1 Hour (12/19/2024 12:52 PM EDT) TROPONIN I, HIGH SENSITIVITY 2 <16 ng/L 12/19/2024 1:55 PM EDT [facility] Blood Venous blood / Unknown Venipuncture / Unknown 12/19/2024 12:52 PM EDT 12/19/2024 12:54 PM EDT Ld Plata DO LAB BLOOD ORDERABLES Final Resul t Performing Organization Address [facility] Co de Phone Number [address] [place] [address], [place] * X-ray chest 1 view (12/19/2024 [...] DIAGNOSTIC IMAGING ORDERABLE S Final Result * Troponin I, High Sensitivity 0 Hour (12/19/2024 11:44 AM EDT) Pathologist [facility] TROPONIN I, HIGH SENSITIVITY 2 <16 ng/L 12/19/2024 12:18 PM EDT [facility] Blood Venous blood / Unknown Venipuncture / Unknown 12/19/2024 11:44 AM EDT 12/19/2024 11:46 AM EDT us Ld Plata DO LAB BLOOD ORDERABLES Final Resul t Performing Organization Address City/[facility]/ZIP Co de Phone Number [address] [address], [place] * B-type natriuretic peptide (12/19/2024 11:44 AM EDT) Pathologist [facility] BNP 24 <=100 pg/mL 12/19/2024 12:57 PM EDT [facility] Blood Venous blood / Unknown Venipuncture / Unknown 12/19/2024 11:44 AM EDT 12/19/2024 11:46 AM EDT us Ld Plata DO LAB BLOOD ORDERABLES Final Resul t Performing Organization Address City/[facility] Co de Phone Number [address] [address], [place] * (ABNORMAL) Lipase (12/19/2024 11:44 AM EDT) Pathologist [facility] LIPASE 46(H) 17 - 40 U/L 12/19/2024 12:06 PM EDT [facility] Blood Venous blood / Unknown Venipuncture / Unknown 12/19/2024 11:44 AM EDT 12/19/2024 11:46 AM EDT us Ld Plata DO LAB BLOOD ORDERABLES Final Resul t [facility] [address] [place] [address], [place] * ECG 12 lead (12/19/2024 11:28 AM EDT) 12/19/2024 11:2 8 AM EDT Narrative [facility] - 12/19/2024 12:25 PM EDT us Ld Plata DO ECG ORDERABLES Final Result Performing Organization Address City/[facility]/ZIP Co de Phone Number [facility] * Non [facility] (12/14/2024 3:20 PM EDT) us Scanning Provider External CV ECHO ORDERABLES Fi nal Result XCELERA * MR cervical spine without contrast (12/14/2024 11:10 AM EDT) us Scanning Provider External IMG MRI ORDERABLES Fi nal Result * MR brain without contrast (12/14/2024 10:40 AM EDT) us Scanning Provider External IMG MRI ORDERABLES Fi nal Result * CT brain without contrast (12/13/2024 4:45 PM EDT) us Scanning Provider External IMG CT ORDERABLES Fin al Result * X-ray chest 2 views (12/13/2024 4:35 PM EDT) us Scanning Provider External IMG DIAGNOSTIC IMAGIN G ORDERABLES Final Result from Last 3 Months Insurance [employer]ICA[employer] Advance Directives * Full Code (Latest Code Status on File) Date Activated Date Inactivated Comments 12/19/2024 5:36 PM * Full Code Date Activated Date Inactivated Comments 08/17/2024 10:24 PM 08/18/2024 4:36 PM
--- OUTSIDE RECORDS SUMMARY | 2024-12-20 14:46 | XMS_ITS | Clinical Summary ---
Author Organization [facility] [place] [address] Care Team Providers Care Autographer Name Role Phone Joe Marte MD Primary Care Provider [phone] Allergies Active Allergy Reactions Criticality Noted Date [...] beer/depends on who she is drinking with [facility] Utilities Answer Date Recorded In the [...] and Family Not on file 06/13/2023 Attends [employer] Not on file 06/13 Active Member [...] care, and heating? Not very hard 06/13/2023 [facility] [place] [facility] - Occupational Stress [...] place to sleep or slept in a jail (including now)? No 06/13/2023 Comments No Sex [...] this topic Medical Devices Implanted Type Area Multimedia Artist Device Identifier Shelf Expiration Date Model / Serial / Lot Graft Dural Matrix Regeneration 4in 5in Duragen Plus [id number] - [id number] Implanted:Qty: 1 on 06/27/2011 at [facility] N/A: Spine Cervical [employer] 12/25/2012 [id number] / / [id number] Lordotic Cage 7 Degree Implanted:Qty: 1 on 06/27/2011 at [facility] N/A: Spine Cervical 316.118 / / 0000 Bone Graft Substitute Vitoss Foam Pack 5cc [id number] - [id number] Implanted:Qty: 1 on 06/27/2011 at [facility] N/A: Spine Cervical [employer] 11/25/2010 [id number] / / [id number] Description:VITOSS 5CC Vectra-T Plate Implanted:Qty: 1 on 06/27/2011 at [facility] N/A: Spine Cervical 450.572 / / 0000 Description:VECTRA-T PLATE 4 8MM Screw Cervical Variable Angle Self-Retaining Self-Drilling Titanium 4.5mm 18mm [id number] - [id number] Implanted:Qty: 4 on 06/27/2011 at [facility] N/A: Spine Cervical [employer] [id number] / / 0000 Description:4.5MM X 18MM Pledgets [place] Ptfe 4.5mm X 6mm Ca/250 [id number] - [id number] Implanted:Qty: 1 on 02/20/2023 by Hakeem Maynard DO at [facility] N/A: Abdomen BARD [employer] 02/17/2025 [id number] / / [id number] Aplr Clip Endoscpc 5mm Ti Endo Clip Super Interlock [id number] Implanted:Qty: 1 on 02/20/2023 by Hakeem Maynard DO at [facility] N/A: Abdomen COVIDIEN 06/01/2024 [id number] / / [id number] Procedures Procedure Name Priority Date/Time Associated Diagnosis [...] 8:25 AM EST [facility] Potassium 3.9 3.4 - 5.3 mEq/L 06/14/2023 8:25 AM EST [facility] Chloride 106 96 - 110 mEq/L 06/14/2023 8:25 AM EST [facility] Carbon Dioxide 26 19 - 32 mEq/L 06/14/2023 8:25 AM EST [facility] BUN 15 3 - 29 mg/dL 06/14/2023 8:25 AM EST [facility] Creatinine 0.8 0.5 - 1.2 mg/dL 06/14/2023 8:25 AM EST [facility] Glucose 94 70 - 99 mg/dL 06/14/2023 8:25 AM EST [facility] Calcium 9.5 8.5 - 10.5 mg/dL 06/14/2023 8:25 AM EST [facility] AST 21 0 - 46 U/L 06/14/2023 8:25 AM EST [facility] ALT 19 0 - 60 U/L 06/14/2023 8:25 AM EST [facility] Alkaline Phosphatase 106 23 - 144 U/L 06/14/2023 8:25 AM EST [facility] Bilirubin,Total 0.2 0.0 - 1.2 mg/dL 06/14/2023 8:25 AM EST [facility] Total Protein 7.5 6.0 - 8.3 g/dL 06/14/2023 8:25 AM EST [facility] Albumin 3.8 3.5 - 5.2 g/dL 06/14/2023 8:25 AM EST [facility] Globulin 3.7(H) 1.9 - 3.6 g/dL 06/14/2023 8:25 AM EST [facility] A/G Ratio 1.0 0.8 - 2.6 06/14/2023 8:25 AM EST [facility] Anion Gap 9 5 - 15 06/14/2023 8:25 AM EST [facility] BUN/CREAT Ratio 19 7 - 25 8:25 AM EST [facility] Estimated GFR 89 >=60 mL/min/1. 73m*2 06/14/2023 8:25 AM EST [facility] Blood. (Venous.) Venipuncture / Unknown 06/14/2023 7:48 AM EST 06/14/2023 7:58 AM EST us Stanley Polanco DO LAB - BLOOD ORDERS Final Res ult [facility] [address] [place] [address] * HIV 1, 2 SCREEN (08/08/2015 4:31 PM EST) [facility] HIV AG/AB SCREEN NON-REACTI VE NON-REACTI VE [facility] Comment: NOTE: A NON-REACTIVE RESULT INDICATES THAT HIV 1/2 ANTIBODIES AND/OR HIV AG HAVE NOT BEEN FOUND IN THIS PATIENT SPECIMEN. A NON-REACTIVE RESULT, HOWEVER, DOES NOT PRECLUDE PREVIOUS EXPOSURE OR INFECTION WITH HIV 1/2. Blood specimen (specimen) 08/08/2015 4:31 PM EST 08/08/2015 10:05 PM EST Narrative Resulting Agency Comment Performing Organization Information: Site ID: IO Name: [facility] Address: [address] [place] [address] [place] [address] Director: Jonathan Soria M.D. Neena Shell MD LAB - BLOOD ORDERS Final R esult Performing Organization Address [facility] Co de Phone Number [facility] [address] [place] [address] [facility] * HEPATITIS C VIRUS ANTIBODY (08/08/2015 4:31 PM EST) HEPATITIS C ANTIBODY NEGATIVE NEGATIVE [facility] Blood specimen (specimen) 08/08/2015 4:31 PM EST 08/08/2015 10:05 PM EST Narrative Resulting Agency Comment Performing Organization Information: Site ID: IO Name: [facility] Address: [address] [place] [address] [place] [address] Director: Jonathan Soria M.D. Neena Shell MD LAB - BLOOD ORDERS Final R esult Performing Organization Address [facility] de Phone Number [facility] [address] [place] [address] [facility] * MAMMOGRAPHY SCREEN BILATERAL WITH CAD [...] 1 Negative Narrative 03/18/2013 8:15 AM EDT #[id number] - MAMMOGRAPHY SCREEN BILATERAL WITH CAD FIRST [...] Procedure Note Domenic Minor MD - 03/22/2013 #[id number] - MAMMOGRAPHY SCREEN BILATERAL WITH CAD FIRST [...] (NA) Group ID:Not on file Type:O Address: [address] [facility] MEDICAID WRAP [facility] CARE SOURCE/DAHP CARESOURCE/DAHP Member Subscriber Plan / Payer ( fective 2015-Present) Name:Stephen Porter Relation to Subscriber:Self Name:Stephen Porter Payer ID:[id number] ([facility]) Group ID:Not on file Type:HMO Address: [place] [id number] CARE SOURCE/DAHP Member Subscriber Plan / Payer ( fective 2024-Present) Name:Stephen Porter Juan C Relation to Subscriber:Self Name:Stephen Porter Payer ID:[id number] ([facility]) Group ID:[id number] Type:HMO Address: [place] [id number] Advance Directives For more information, please contact: [phone] * Total Support (Latest Code Status on [...] 2:02 AM 12/31/2015 7:51 PM Care Teams Autographer Relationship Specialty Start Date End Date Joe Marte MD PCP - General Family Practice 10/26/22
--- OUTSIDE RECORDS SUMMARY | 2024-12-20 14:47 | XMS_ITS | Encounter Summary ---
Author Organization [facility] [place] [address] Care Team Providers Care Fleet Administrative Assistant Name Role Phone Karina Quigley RN Unavailable Unavailable Julita Olivas RN Unavailable Marisela Taty Pelletier RN Unavailable Unavailable Ronal Santos RN Unavailable Unavailable Elayne Macedo RN Unavailable Unavailable Shannan Anaya RN Unavailable Unavailable Kenzie Brown RN Unavailable Unavailable Alyssa Rogers RN Unavailable UnavailDiane Hidalgo MD Unavailable [phone] Nurys Mcarthur RN Unavailable UnavailShannan Cm RN Unavailable Unavailable [place] RN Unavailable Unavailable Ileana Feliciano RN Unavailable Unavailable Estella Paz REGIONAL HR MANAGER Unavailable [phone] cSar Cat MD Unavailable [phone] Hazel Prater RN Unavailable Unavailab Katt Carreon RN Unavailable Unavaila Neena Montero MD Unavailable + Britany Rider RT(R,CV) Unavailable Unava ilable Sappe, Sara L RN Unavailable Unavailable Nolan, Jamia RN Unavailable Unavailable Carlos Soni DO Unavailable [phone] Britney Villatoro RN Unavailable Unavail able Eladio Busch PT Unavailable Unavailable Joan Gonzalez SUPERVISOR KENNEL Unavailable Unavaila Dean Borges Unavailable Unavailable Slime Alvarez RT(R) Unavailable Unavailab Janee Chaudhari RN Unavailable Unavailable Max Goldsmith RN Unavailable Unavailable Chio Arroyo RN Unavailable [phone] Estella Poe RN Unavailable Unavailab Dharmesh Mendieta RN Unavailable Unavailable Ana Caal RN Unavailable Unavailable Julia Eric RN Unavailable Unavailab Medardo Jones RN Unavailable Unavailable LudyClaribel smith REGIONAL HR MANAGER Unavailable [phone] Glenn Aldana RN Unavailable Unavailable Karissa Nice RN Unavailable Unavailable Janeen Waddell RN Unavailable Unavailable Monica Orr RN Unavailable Unavailable Simi Crump REGIONAL HR MANAGER Unavailable [phone] Chica Nick RN Unavailable Unavailable Joan Sen RN Unavailable UnavailVictorino Garcia MD Primary Care Provider [phone] Joe Marte MD Primary Care Provider [phone] Joe Marte MD Primary Care Provider [phone] Encounter Details Date Type Department Care Team (Late st Contact Info) Description 06/13/2015 Telephone [facility] Psychiatric OP 1 [place] [address] Neena Leigh, [place],[facility] Social History Tobacco Use Types Packs/Day [...] documented as of this encounter Care Teams Fleet Administrative Assistant Relationship Specialty Start Date End Date Victorino Sanchez MD PCP - General Family Practice 05/22/15 08/10/17 Joe Marte MD PCP - General Family Practice 04/05/18 10/25/22 Joe Marte MD PCP - General Family Practice 10/26/22 Karina Quigley RN 05/16/09 06/21/15 [place] [address] 05/16/09 06/21/15 Taty Abbott, MARCELO 05/16/09 06/21/15 Ronal Santos RN 05/16/09 06/21/15 Elayne Macedo RN 05/16/09 06/21/15 Shannan Anaya RN 01/09/10 06/21/15 Kenzie Brown RN 01/25/10 06/21/15 Alyssa Rogers, MARCELO 01/26/10 06/21/15 Diane Villegas MD [address] [address] recruitment officer 02/06/10 06/21/15 [place] [address] 02/06/10 06/21/15 Shannan De Jesus RN 02/21/10 06/21/15 Glory Park RN 02/27/10 06/21/15 Ileana Feliciano RN 02/28/10 06/21/15 Estella Paz, REGIONAL HR MANAGER [address] [place] [address] 03/29/10 06/21/15 Scar Cat MD [address] [facility] [address] [place] [address] recruitment officer 04/06/10 06/21/15 Hazel Prater RN [place], [place] 04/13/10 06/21/15 Katt Vo RN [facility] 07/17/10 06/21/15 Neena Espinal MD 1 [place] [address] recruitment officer 09/04/10 06/21/15 Britany Rider, RT(R,CV) 10/06/1005/25 Sara Callaway RN 10/07/10 06/21/15 Milli Francisco RN 10/13/10 06/21/15 Carlos Soni DO [address] [facility] [address] [place] [address] Neurosurgery 10/15/10 06/21/15 Britney Villatoro RN 11/29/10 Eladio Busch, PT Physical Therapy 01/11/11 06/21/15 Joan Gonzalez, SUPERVISOR KENNEL 01/15/11 5 Dean Amezcua 01/28/11 06/21/15 Slime Alvarez, RT(R) 03/24/11 06/21/15 Janee Kaur, RN 04/17/11 06/21/15 Max Goldsmith RN 06/04/11 06/21/15 Chio Arroyo, RN 1 [place] [address] 06/05/11 06/21/15Junowiecki, Estella C, MARCELO 06/05/11 06/21/15 Dharmesh Mcgowan, MARCELO 06/18/11 06/21/15 [place] [address] 06/25/11 06/21/15 Julia Eric RN 06/27/11 06/21/15 Medardo Casey RN 06/29/11 06/21/15 Claribel Bassett APRN [address] [facility] [address] [place] [address] 07/02/11 06/21/15 Glenn Aldana, RN 11/07/11 06/21/15 Karissa Nice RN 02/18/12 06/21/15 Janeen Waddell RN 03/05/12 06/21/15 Monica Orr RN 05/18/12 06/21/15 Simi Crump, SERGE [address] [facility] [address] [place] [address] 05/29/12 06/21/15 Chica Nick RN 06/01/12 06/21/15 Joan Sen RN 06/21/12 06/21/15 documented as of this encounter
--- OUTSIDE RECORDS SUMMARY | 2024-12-20 14:47 | XMS_ITS | Encounter Summary ---
Author Organization [facility] [place] [address] Care Team Providers Care Hand Paster Name Role Phone Karina Quigley RN Unavailable Unavailable Julita Olivas RN Unavailable Marisela Taty Pelletier RN Unavailable Unavailable Ronal Santos RN Unavailable Unavailable Elayne Macedo RN Unavailable Unavailable Shannan Anaya RN Unavailable Unavailable Kenzie Brown RN Unavailable Unavailable Alyssa Rogers RN Unavailable UnavailDiane Hidalgo MD Unavailable [phone] Nurys Mcarthur RN Unavailable UnavailShannan Cm RN Unavailable Unavailable [place] RN Unavailable Unavailable Ileana Feliciano RN Unavailable Unavailable Estella Paz PIECE MARKER SMALL ARMS Unavailable [phone] Scar Cat MD Unavailable [phone] Hazel Prater RN Unavailable Unavailab Katt Carreon RN Unavailable Unavaila Neena Montero MD Unavailable + Britany Rider RT(R,CV) Unavailable Unava ilable Sappe, Sara L RN Unavailable Unavailable Nolan, Jamia RN Unavailable Unavailable Carlos Soni DO Unavailable [phone] Britney Villatoro RN Unavailable Unavail able Eladio Busch PT Unavailable Unavailable Joan Gonzalez AERIAL GUNNER SUPERINTENDENT Unavailable Unavaila Dean Borges Unavailable Unavailable Slime Alvarez RT(R) Unavailable Unavailab Janee Chaudhari RN Unavailable Unavailable Max Goldsmith RN Unavailable Unavailable Chio Arroyo RN Unavailable [phone] Estella Poe RN Unavailable Unavailab Dharmesh Mendieta RN Unavailable Unavailable Ana Caal RN Unavailable Unavailable Julia Eric RN Unavailable Unavailab Medardo Jones RN Unavailable Unavailable LudyClaribel smith PIECE MARKER SMALL ARMS Unavailable [phone] Glenn Aldana RN Unavailable Unavailable Karissa Nice RN Unavailable Unavailable Janeen Waddell RN Unavailable Unavailable Monica Orr RN Unavailable Unavailable Simi Crump PIECE MARKER SMALL ARMS Unavailable [phone] Chica Nick RN Unavailable Unavailable Joan Sen RN Unavailable UnavailVictorino Garcia MD Primary Care Provider [phone] Joe Marte MD Primary Care Provider [phone] Joe Marte MD Primary Care Provider [phone] Encounter Details Date Type Department Care Team (Late st Contact Info) Description 06/12/2015 Telephone [facility] Psychiatric OP 1 [place] [address] Max Oro Social History Tobacco [...] documented as of this encounter Care Teams Hand Paster Relationship Specialty Start Date End Date Victorino Sanchez MD PCP - General Family Practice 05/22/15 08/10/17 Joe Marte MD PCP - General Family Practice 04/05/18 10/25/22 Joe Marte MD PCP - General Family Practice 10/26/22 Karina Quigley RN 05/16/09 06/21/15 [place] [address] 05/16/09 06/21/15 Taty Abbott, MARCELO 05/16/09 06/21/15 Ronal Santos, MARCELO 05/16/09 06/21/15 Elayne Macedo RN 05/16/09 06/21/15 Shannan Anaya RN 01/09/10 06/21/15 Kenzie Brown RN 01/25/10 06/21/15 Alyssa Rogers RN 01/26/10 06/21/15 Diane Villegas MD [facility] [address] powder worker tnt 02/06/10 06/21/15 [place] [address] 02/06/10 06/21/15 Shannan De Jesus RN 02/21/10 06/21/15 Glory Park RN 02/27/10 06/21/15 Ileana Feliciano RN 02/28/10 06/21/15 Estella Paz, PIECE MARKER SMALL ARMS [address] [place] [address] 03/29/10 06/21/15 Scar Cat MD [facility] [address] [address] powder worker tnt 04/06/10 06/21/15 Hazel Prater RN [place], [place] 04/13/10 06/21/15 Katt Vo RN [facility] 07/17/10 06/21/15 Neena Espinal MD 1 [place] [address] powder worker tnt 09/04/10 06/21/15 Britany Rider, RT(R,CV) 10/06/1005/25 Sara Callaway, RN 10/07/10 06/21/15 Milli Francisco, RN 10/13/10 06/21/15 Carlos Soni DO [address] [facility] [address] [place] [address] Neurosurgery 10/15/10 06/21/15 Britney Villatoro RN 11/29/10 Eladio Busch, PT Physical Therapy 01/11/11 06/21/15 Joan Gonzalez, AERIAL GUNNER SUPERINTENDENT 01/15/11 5 Dean Amezcua 01/28/11 06/21/15 Slime Alvarez, RT(R) 03/24/11 06/21/15 Janee Kaur, RN 04/17/11 06/21/15 Max Goldsmith RN 06/04/11 06/21/15 Chio Arroyo, RN 1 [place] [address] 06/05/11 06/21/15 Estella Poe, RN 06/05/11 06/21/15 Dharmesh Mcgowan, RN 06/18/11 06/21/15 Ana Caal, [place] [address] 06/25/11 06/21/15 uJlia Eric, RN 06/27/11 06/21/15 Medardo Casey, RN 06/29/11 06/21/15 Claribel Bassett APRN [address] [facility] [address] [place] [address] 07/02/11 06/21/15 Glenn Aldana, RN 11/07/11 06/21/15 Karissa Nice RN 02/18/12 06/21/15 Janeen Waddell, RN 03/05/12 06/21/15 Monica Orr RN 05/18/12 06/21/15 Simi Crump, PIECE MARKER SMALL ARMS [address] [facility] [address] [place] [address] 05/29/12 06/21/15 Chica Nick RN 06/01/12 06/21/15 Joan Sen RN 06/21/12 06/21/15 documented as of this encounter
--- OUTSIDE RECORDS SUMMARY | 2024-12-20 14:47 | XMS_ITS | Patient Health Record ---
Author Organization [facility] Address [address] [place] [address] Care Team Providers Care Reel Tender Name Role Phone LEMUEL MCHUGH Primary Care Provider Sree Estrada [facility] [phone] Reason For Referral No Information Encounters Encounter Location Date Provider Diagnosis [facility] [address] [place] [address] 09/15/2024 Sree Shah Plan Of Treatment No Information Insurance Providers Payer Name Payer Address Payer Phone Subscriber Number Group Number Insured Name Patient Relationship to Insured Coverage Start Date Coverage End Date Care[employer] [place] Medicaid [address] [place] [address] [id number] STEPHEN ABERNATHY Self - patient is the insured 9
--- OUTSIDE RECORDS SUMMARY | 2024-12-20 14:47 | XMS_ITS | Encounter Summary ---
Author Organization [facility] [place] [address] Care Team Providers Care Book Canvasser Name Role Phone Victorino Sanchez MD Primary Care Provider [phone] Joe Marte MD Primary Care Provider [phone] Joe Marte MD Primary Care Provider [phone] Encounter Details Date Type Department Care Team (Late st Contact Info) Description 07/25/2015 Telephone [facility] Psychiatric OP 1 [place], [place] [id number] Jet Corado Social History Tobacco Use Types [...] documented as of this encounter Care Teams Book Canvasser Relationship Specialty Start Date End Date Victorino Sanchez MD PCP - General Family Practice 05/22/15 08/10/17 Joe Marte MD PCP - General Family Practice 04/05/18 10/25/22 Joe Marte MD PCP - General Family Practice 10/26/22 documented as of this encounter
--- OUTSIDE RECORDS SUMMARY | 2024-12-20 14:47 | XMS_ITS | Encounter Summary ---
Author Organization [facility] [place] [address] Care Team Providers Care Enrollment Coordinator Name Role Phone Karina Quigley RN Unavailable Unavailable Julita Olivas RN Unavailable Marisela Taty Pelletier RN Unavailable Unavailable Ronal Santos RN Unavailable Unavailable Elayne Macedo RN Unavailable Unavailable Shannan Anaya RN Unavailable Unavailable Kenzie Brown RN Unavailable Unavailable Alyssa Rogers RN Unavailable UnavailDiane Hidalgo MD Unavailable [phone] Nurys Mcarthur RN Unavailable UnavailShannan Cm RN Unavailable Unavailable [place] RN Unavailable Unavailable Ileana Feliciano RN Unavailable Unavailable Estella Paz FUSING MACHINE FEEDER Unavailable [phone] Scar Cat MD Unavailable [phone] Hazel Prater RN Unavailable Unavailab Katt Carreon RN Unavailable Unavaila Neena Montero MD Unavailable + Britany Rider RT(R,CV) Unavailable Unava ilable Sappe, Sara L RN Unavailable Unavailable Nolan, Jamia RN Unavailable Unavailable Carlos Soni DO Unavailable [phone] Britney Villatoro RN Unavailable Unavail able Eladio Busch PT Unavailable Unavailable Joan Gonzalze SEASONAL TAX PREPARER Unavailable Unavaila Dean Borges Unavailable Unavailable Slime Alvarez RT(R) Unavailable Unavailab Janee Chaudhari RN Unavailable Unavailable Max Goldsmith RN Unavailable Unavailable Chio Arroyo RN Unavailable [phone] Estella Poe RN Unavailable Unavailab Dharmesh Mendieta RN Unavailable Unavailable Ana Caal RN Unavailable Unavailable Julia Eric RN Unavailable Unavailab Medardo Jones RN Unavailable Unavailable LudyClaribel smith FUSING MACHINE FEEDER Unavailable [phone] Glenn Aldana RN Unavailable Unavailable Karissa Nice RN Unavailable Unavailable Janeen Waddell RN Unavailable Unavailable Monica Orr RN Unavailable Unavailable Simi Crump FUSING MACHINE FEEDER Unavailable [phone] Chica Nick RN Unavailable Unavailable Joan Sen RN Unavailable UnavailVictorino Garcia MD Primary Care Provider [phone] Joe Marte MD Primary Care Provider [phone] Joe Marte MD Primary Care Provider [phone] Encounter Details Date Type Department Care Team (Late st Contact Info) Description 06/09/2015 Telephone [facility] Psychiatric OP 1 [place] [address] Jet Corado Social History Tobacco [...] Notes * [facility] 2:35 PM EST I returned [...] documented as of this encounter Care Teams Enrollment Coordinator Relationship Specialty Start Date End Date Victorino Sanchez MD PCP - General Family Practice 05/22/15 08/10/17 Joe Marte MD PCP - General Family Practice 04/05/18 10/25/22 Joe Marte MD PCP - General Family Practice 10/26/22 Karina Quigley RN 05/16/09 06/21/15 [place] [address] 05/16/09 06/21/15 Taty Abbott, MARCELO 05/16/09 06/21/15 Ronal Santos, MARCELO 05/16/09 06/21/15 Elayne Macedo RN 05/16/09 06/21/15 Shannan Anaya RN 01/09/10 06/21/15 Kenzie Borwn RN 01/25/10 06/21/15 Alyssa Rogers, MARCELO 01/26/10 06/21/15 Diane Villegas MD [address] [address] detonator maker 02/06/10 06/21/15 [place] [address] 02/06/10 06/21/15 Shannan De Jesus RN 02/21/10 06/21/15 Glory Park RN 02/27/10 06/21/15 Ileana Feliciano RN 02/28/10 06/21/15 Estella Paz, SERGE [address] [place] [address] 03/29/10 06/21/15 Scar Cat MD [address] [facility] [address] [place] [address] detonator maker 04/06/10 06/21/15 Hazel Prater RN [place], [place] 04/13/10 06/21/15 Katt Vo RN [facility] 07/17/10 06/21/15 Neena Espianl MD 1 [place] [address] detonator maker 09/04/10 06/21/15 Britany Rider, RT(R,CV) 10/06/1005/25 Sara Callaway RN 10/07/10 06/21/15 Milli Francisco RN 10/13/10 06/21/15 Carlos Soni DO 30 [facility] [address] [place] [address] Neurosurgery 10/15/10 06/21/15 Britney Villatoro RN 11/29/10 Eladio Busch, PT Physical Therapy 01/11/11 06/21/15 Joan Gonzalez, SEASONAL TAX PREPARER 01/15/11 5 eDan Amezcua 01/28/11 06/21/15 Slime Alvarez, RT(R) 03/24/11 06/21/15 Janee Kaur, RN 04/17/11 06/21/15 Max Goldsmith, MARCELO 06/04/11 06/21/15 Chio Arroyo, RN 1 [place] [address] 06/05/11 06/21/15 Estella Poe, RN 06/05/11 06/21/15 Dharmesh Mcgowan, RN 06/18/11 06/21/15 Ana Caal, [place] [address] 06/25/11 06/21/15 Julia Eric RN 06/27/11 06/21/15 Medardo Casey, RN 06/29/11 06/21/15 Claribel Bassett APRN [address] [address] 07/02/11 06/21/15 Glenn Aldana, RN 11/07/11 06/21/15 Karissa Nice, RN 02/18/12 06/21/15 Janeen Waddell, RN 03/05/12 06/21/15 Monica Orr RN 05/18/12 06/21/15 Simi Crump, FUSING MACHINE FEEDER [address] [facility] [address] [place] [address] 05/29/12 06/21/15 Chica Nick RN 06/01/12 06/21/15 Joan Sen, RN 06/21/12 06/21/15 documented as of this encounter
--- OUTSIDE RECORDS SUMMARY | 2024-12-20 14:47 | XMS_ITS | Encounter Summary ---
Author Organization [facility] [place] [address] Care Team Providers Care Head Of Art Name Role Phone Karina Quigley RN Unavailable Unavailable Julita Olivas RN Unavailable Marisela Taty Pelletier RN Unavailable Unavailable Ronal Santos RN Unavailable Unavailable Elayne Macedo RN Unavailable Unavailable Shannan Anaya RN Unavailable Unavailable Kenzie Brown RN Unavailable Unavailable Alyssa Rogers RN Unavailable UnavailDiane Hidalgo MD Unavailable [phone] Nurys Mcarthur RN Unavailable UnavailShannan Cm RN Unavailable Unavailable [place] RN Unavailable Unavailable Ileana Feliciano RN Unavailable Unavailable Estella Paz TRADE SPECIALIST Unavailable [phone] Scar Cat MD Unavailable [phone] Hazel Prater RN Unavailable Unavailab Katt Carreon RN Unavailable Unavaila Neena Montero MD Unavailable + Britany Rider RT(R,CV) Unavailable Unava ilable Sappe, Sara L RN Unavailable Unavailable Nolan, Jamia RN Unavailable Unavailable Carlos Soni DO Unavailable [phone] Britney Villatoro RN Unavailable Unavail able Eladio Busch PT Unavailable Unavailable Joan Gonzalez PERSONNEL PLACEMENT SPECIALIST Unavailable Unavaila Dean Borges Unavailable Unavailable Slime Alvarez RT(R) Unavailable Unavailab Janee Chaudhari RN Unavailable Unavailable Max Goldsmith RN Unavailable Unavailable Chio Arroyo RN Unavailable [phone] Estella Poe RN Unavailable Unavailab Dharmesh Mendieta RN Unavailable Unavailable Ana Caal RN Unavailable Unavailable Julia Eric RN Unavailable Unavailab Medardo Jones RN Unavailable Unavailable LudyClaribel smith TRADE SPECIALIST Unavailable [phone] Glenn Aldana RN Unavailable Unavailable Karissa Nice RN Unavailable Unavailable Janeen Waddell RN Unavailable Unavailable Monica Orr RN Unavailable Unavailable Simi Crump TRADE SPECIALIST Unavailable [phone] Chica Nick RN Unavailable Unavailable Joan Sen RN Unavailable UnavailVictorino Garcia MD Primary Care Provider [phone] Victorino Sanchez MD Primary Care Provider + [phone] Joe Marte MD Primary Care Provider [phone] Joe Marte MD Primary Care Provider [phone] Reason for Visit * Reason Onset Date Comments Refill Request 05/17/2013 Encounter Details Date Type Department Care Team (Late st Contact Info) Description 05/17/2013 Refill [facility] [address] [place] [id number] Soniya Estrada Social History Tobacco Use Types [...] documented as of this encounter Care Teams Head Of Art Relationship Specialty Start Date End Date Victorino Sanchez MD PCP - General Family Practice 05/25/14 03/19/15 Victorino Sanchez MD PCP - General Family Practice 05/22/15 08/10/17 Joe Marte MD PCP - General Family Practice 04/05/18 10/25/22 Joe Marte MD PCP - General Family Practice 10/26/22 Karina Quigley RN 05/16/09 06/21/15 [place] [address] 05/16/09 06/21/15 Taty Abbott, MARCELO 05/16/09 06/21/15 Ronal Santos RN 05/16/09 06/21/15 Elayne Macedo RN 05/16/09 06/21/15 Shannan Anaya RN 01/09/10 06/21/15 Kenzie Brown RN 01/25/10 06/21/15 Alyssa Rogers RN 01/26/10 06/21/15 Diane Villegas MD [address] [address] heavy forger 02/06/10 06/21/15 [place] [address] 02/06/10 06/21/15 Shannan De Jesus RN 02/21/10 06/21/15 [place] RN 02/27/10 06/21/15 Ileana Feliciano RN 02/28/10 06/21/15 Estella Paz, TRADE SPECIALIST [address] [place] [address] 03/29/10 06/21/15 Scar Cat MD [address] [place] [address] heavy forger 04/06/10 06/21/15 Hazel Prater RN [place], [place] 04/13/10 06/21/15 Katt Vo RN [facility] 07/17/10 06/21/15 Neena Espinal MD [address] [place] [address] heavy forger 09/04/10 06/21/15 Britany Rider, RT(R,CV) 10/06/1005/25 Sara Callaway RN 10/07/10 06/21/15 Milli Francisco RN 10/13/10 06/21/15 Carlos Soni DO [address] [address] Neurosurgery 10/15/10 06/21/15 Britney Villatoro, RN 11/29/10 Eladio Busch, PT Physical Therapy 01/11/11 06/21/15 Joan Gonzalez, PERSONNEL PLACEMENT SPECIALIST 01/15/11 5 Dean Amezcua 01/28/11 06/21/15 Slime Alvarez, RT(R) 03/24/11 06/21/15 Janee Kaur, RN 04/17/11 06/21/15 Max Goldsmith, RN 06/04/11 06/21/15 Chio Arroyo, RN [address] [place] [address] 06/05/11 06/21/15 Estella Poe, RN 06/05/11 06/21/15 Dharmesh Mcgowan, RN 06/18/11 06/21/15 Ana Caal, [place] [address] 06/25/11 06/21/15 Julia Eric, RN 06/27/11 06/21/15 Medardo Casey, RN 06/29/11 06/21/15 Claribel Bassett APRN [address] [address] 07/02/11 06/21/15 Glenn Aldana, RN 11/07/11 06/21/15 Karissa Nice, RN 02/18/12 06/21/15 Janeen Waddell, RN 03/05/12 06/21/15 Monica Orr, RN 05/18/12 06/21/15 Simi rCump, SERGE [address] [facility] [address] [place] [address] 05/29/12 06/21/15 Chica Nick, RN 06/01/12 06/21/15 Joan eSn RN 06/21/12 06/21/15 documented as of this encounter
--- OUTSIDE RECORDS SUMMARY | 2024-12-20 14:47 | XMS_ITS | Encounter Summary ---
Author Organization [facility] [place] [address] Care Team Providers Care Diagnostic Tech Name Role Phone Victorino Sanchez MD Primary Care Provider [phone] Joe Marte MD Primary Care Provider [phone] Joe Marte MD Primary Care Provider [phone] Reason for Visit * Reason Onset Date Comments Follow-up 01/01/2016 Encounter Details Date Type Department Care Team (Late st Contact Info) Description 01/01/2016 Telephone [facility] [address] [place] [address] CherriMatthieu RN Follow-up Social History Tobacco Use [...] documented as of this encounter Care Teams Diagnostic Tech Relationship Specialty Start Date End Date Victorino Sanchez MD PCP - General Family Practice 05/22/15 08/10/17 Joe Marte MD PCP - General Family Practice 04/05/18 10/25/22 Joe Marte MD PCP - General Family Practice 10/26/22 documented as of this encounter
--- OUTSIDE RECORDS SUMMARY | 2024-12-20 14:47 | XMS_ITS | Encounter Summary ---
Author Organization [employer] [facility] [employer] Address [id number] [address] [place] [address] Care Team Providers Care Meter Reader Inspector Name Role Phone Unavailable Primary Care Provider Unavailabl e Reason for Referral * Diagnostic Imaging (Routine) - Pending Review Specialty Diagnoses / Procedures Referred By Contac t Referred To Contact Radiology Diagnoses Pain Procedures MR cervical spine without contrast [facility] [address] [place] [phone] Phone: tel: fax: Referral ID Status Reason Start Date Expiration Date V isits Requested Visits Authorized [id number] Pending Review 12/15/2024 12/15/2025 1 1 * Diagnostic Imaging (Routine) - Pending Review Specialty Diagnoses / Procedures Referred By Contac t Referred To Contact Radiology Diagnoses Pain Procedures MR brain without contrast [facility] [address] [place] [phone] Phone: tel: fax: Referral ID Status Reason Start Date Expiration Date V isits Requested Visits Authorized [id number] Pending Review 12/15/2024 12/15/2025 1 1 * Diagnostic Imaging (Routine) - Pending Review Specialty Diagnoses / Procedures Referred By Contac t Referred To Contact Radiology Diagnoses Pain Procedures CT brain without contrast [facility] [place] [address] Phone: tel: fax: Referral ID Status Reason Start Date Expiration Date V isits Requested Visits Authorized [id number] Pending Review 12/15/2024 12/15/2025 1 1 Encounter Details Date Type Department Care Team (Arlene st Contact Info) Description 12/15/2024 Orders Only [facility] [address] [place] [phone] Transcribe, Orders Support User Pain (Primary Dx) Social History Tobacco Use Types Packs/Day Years Used Date Smoking Tobacco: Never Smokeless Tobacco: Never Alcohol Use Standard Drinks/Week Comments Not Currently 12 (1 standard drink = 0.6 oz pure alcohol) pt states she has not drank since 07/26/24 [facility] Utilities Answer Date Recorded In the [...] gets here. documented as of this encounter Results * Non [facility] [...] documented in this encounter Visit Diagnoses Diagnosis Pain- Primary Generalized pain documented in this encounter
--- OUTSIDE RECORDS SUMMARY | 2024-12-20 14:47 | XMS_ITS | Encounter Summary ---
Author Organization [facility] [place] [address] Care Team Providers Care Household Personal Assistant Name Role Phone Karina Quigley RN Unavailable Unavailable Julita Olivas RN Unavailable Marisela Taty Pelletier RN Unavailable Unavailable Ronal Santos RN Unavailable Unavailable Elayne Macedo RN Unavailable Unavailable Shannan Anaya RN Unavailable Unavailable Kenzie Brown RN Unavailable Unavailable Alyssa Rogers RN Unavailable UnavailDiane Hidalgo MD Unavailable [phone] Nurys Mcarthur RN Unavailable UnavailShannan Cm RN Unavailable Unavailable [place] RN Unavailable Unavailable Ileana Feliciano RN Unavailable Unavailable Estella Paz WELL TESTING OPERATOR Unavailable [phone] Scar Cat MD Unavailable [phone] Hazel Prater RN Unavailable Unavailab Katt Carreon RN Unavailable Unavaila Neena Montero MD Unavailable + Britany Rider RT(R,CV) Unavailable Unava ilable Sappe, Sara L RN Unavailable Unavailable Nolan, Jamia RN Unavailable Unavailable Carlos Soni DO Unavailable [phone] Britney Villatoro RN Unavailable Unavail able Eladio Busch PT Unavailable Unavailable Joan Gonzalez RN PLASTIC SURGERY Unavailable Unavaila Dean Borges Unavailable Unavailable Slime Alvarez RT(R) Unavailable Unavailab Janee Chaudhari RN Unavailable Unavailable Max Goldsmith RN Unavailable Unavailable Chio Arroyo RN Unavailable [phone] Estella Poe RN Unavailable Unavailab Dharmesh Mendieta RN Unavailable Unavailable Ana Caal RN Unavailable Unavailable Julia Eric RN Unavailable Unavailab Medardo Jones RN Unavailable Unavailable uLdyClaribel smith WELL TESTING OPERATOR Unavailable [phone] Glenn Aldana RN Unavailable Unavailable Karissa Nice RN Unavailable Unavailable Janeen Waddell RN Unavailable Unavailable Monica Orr RN Unavailable Unavailable Simi Crump WELL TESTING OPERATOR Unavailable [phone] Chica Nick RN Unavailable Unavailable Joan Sen RN Unavailable UnavailVictorino Garcia MD Primary Care Provider [phone] Joe Marte MD Primary Care Provider [phone] Joe Marte MD Primary Care Provider [phone] Encounter Details Date Type Department Care Team (Late st Contact Info) Description 06/19/2015 Telephone [facility] [address] [place] [address] Neena Leigh, MS,[facility] Social History Tobacco Use Types Packs/Day [...] Notes * Telephone Encounter - Neena Leigh MS,[facility] - 06/19/2015 4:47 PM EST I [...] documented as of this encounter Care Teams Household Personal Assistant Relationship Specialty Start Date End Date Victorino Sanchez MD PCP - General Family Practice 05/22/15 08/10/17 Joe Marte MD PCP - General Family Practice 04/05/18 10/25/22 Joe Marte MD PCP - General Family Practice 10/26/22 Karina Quigley RN 05/16/09 06/21/15 [place] [address] 05/16/09 06/21/15 Taty Abbott RN 05/16/09 06/21/15 Ronal Santos RN 05/16/09 06/21/15 Elayne Macedo RN 05/16/09 06/21/15 Shannan Anaya RN 01/09/10 06/21/15 Kenzie Brown RN 01/25/10 06/21/15 Alyssa Rogers RN 01/26/10 06/21/15 Diane Villegas MD [address] [address] crop and soil scientist 02/06/10 06/21/15 [place] [address] 02/06/10 06/21/15 Shannan De Jesus RN 02/21/10 06/21/15 [place] RN 02/27/10 06/21/15 Ileana Feliciano RN 02/28/10 06/21/15 Estella Paz, WELL TESTING OPERATOR [address] [place] [address] 03/29/10 06/21/15 Scar Cat MD [address] [address] crop and soil scientist 04/06/10 06/21/15 Hazel Prater RN [place] 04/13/10 06/21/15 Katt Vo RN [facility] 07/17/10 06/21/15 Neena Espinal MD [address] [place] [address] crop and soil scientist 09/04/10 06/21/15 Britany Rider, RT(R,CV) 10/06/1005/25 Sara Callaway, RN 10/07/10 06/21/15 Milli Francisco, RN 10/13/10 06/21/15 Carlos Soni DO 30 [facility] [address] [place] [address] Neurosurgery 10/15/10 06/21/15 Britney Villatoro RN 11/29/10 Eladio Busch, PT Physical Therapy 01/11/11 06/21/15 Joan Gonzalez, RN PLASTIC SURGERY 01/15/11 5 Dean Amezcua 01/28/11 06/21/15 Slime Alvarez, RT(R) 03/24/11 06/21/15 Janee Kaur, RN 04/17/11 06/21/15 Max Goldsmith RN 06/04/11 06/21/15 Chio Arroyo, RN [address] [place] [address] 06/05/11 06/21/15 Estella Poe, RN 06/05/11 06/21/15 Dharmesh Mcgowan, RN 06/18/11 06/21/15 Ana Caal, [place] [address] 06/25/11 06/21/15 Julia Eric, RN 06/27/11 06/21/15 Medardo Casey, RN 06/29/11 06/21/15 Claribel Bassett APRN [address] [address] 07/02/11 06/21/15 Glenn Aldana, RN 11/07/11 06/21/15 Karissa Nice RN 02/18/12 06/21/15 Janeen Waddell, RN 03/05/12 06/21/15 Monica Orr RN 05/18/12 06/21/15 Simi Crump APRN [address] [facility] [address] [place] [id number] 05/29/12 06/21/15 Chica Nick RN 06/01/12 06/21/15 Joan Sen RN 06/21/12 06/21/15 documented as of this encounter
--- OUTSIDE RECORDS SUMMARY | 2024-12-20 14:47 | XMS_ITS | Continuity of Care Document ---
Author Organization [facility] Address [address] [place] [address] Phone [phone] Care Team Providers Care Lpc Name Role Phone BRETT WILLSON CNP Care Team Information R hitesh Unavailable
--- OUTSIDE RECORDS SUMMARY | 2024-12-20 14:47 | XMS_ITS ---
Author Organization [facility] Care Team Providers Care Design Inserter Name Role Phone Tiesha Renuka Unavailable Unavailable Allergies and adverse reactions Code CodeSystem Substance Reaction Severity StartDate Concern Status SEROquel Unknown 03/13/[address] Penicillins Unknown 03/13/2023 activ e Lexapro Unknown 03/13/2023 active Invega Unknown 03/13/2023 active Geodon Unknown 03/13/2023 active Care Team Name Role Address Phone Organization Dates Renuka Motley PCP [address] [facility] , [place], [address], [place] (Office): : : [facility] 03/13/2023 - 03/15/2023 Goals Section Goals Description [...] DIFFICULTY IN WALKING, NOT ELSEWHERE CLASSIFIED 03/15/[address] active 2 OTHER SYMPTOMS AND SIGNS INVOLVING THE MUSCULOSKELETAL SYSTEM 03/15/[address] active 3 ABNORMAL POSTURE 03/14/[address] a ctive 4 DYSPHAGIA, OROPHARYNGEAL PHASE 03/14/[address] active 5 MUSCLE WEAKNESS (GENERALIZED) 03/14/[address] active 6 OTHER LACK OF COORDINATION 03/14/[address] active 7 OTHER SYMBOLIC DYSFUNCTIONS 03/14/[address] active 8 UNSTEADINESS ON FEET 03/14/[address] active 9 ALCOHOL ABUSE, UNCOMPLICATED 03/13/[address] active 10 CERVICALGIA 03/13/[address] active 11 CHEST PAIN, UNSPECIFIED 03/13/[address] active 12 CHRONIC OBSTRUCTIVE PULMONARY DISEASE, UNSPECIFIED 03/13/[address] active 13 COCAINE USE, UNSPECIFIED WITH COCAINE-INDUCED MOOD DISORDER 03/13/[address] active 14 COMPLEX REGIONAL PAIN SYNDROME I, UNSPECIFIED 03/13/[address] active 15 DEPRESSION, UNSPECIFIED 03/13/[address] active 16 DIAPHRAGMATIC HERNIA WITHOUT OBSTRUCTION OR GANGRENE 03/13/[address] active 17 DISEASE OF SPINAL CORD, UNSPECIFIED 03/13/[address] active 18 DRUG INDUCED ACUTE DYSTONIA 03/13/[address] active 19 ELEVATED BLOOD-PRESSURE READING, WITHOUT DIAGNOSIS OF HYPERTENSION 03/13/[address] active 20 EPIGASTRIC PAIN 03/13/[address] ac tive 21 ESSENTIAL (PRIMARY) HYPERTENSION 03/13/[address] active 22 GASTRO-ESOPHAGEAL REFLUX DISEASE WITHOUT ESOPHAGITIS 03/13/[address] active 23 GENERALIZED ANXIETY DISORDER 03/13/[address] active 24 HEADACHE, UNSPECIFIED 03/13/[address] active 25 MAJOR DEPRESSIVE DISORDER, RECURRENT, SEVERE WITH PSYCHOTIC SYMPTOMS 03/13/[address] active 26 OLD MYOCARDIAL INFARCTION 03/13/[address] active 27 OTHER CERVICAL DISC DEGENERATION, UNSPECIFIED CERVICAL REGION 03/13/[address] active 28 OTHER CERVICAL DISC DISPLACEMENT, UNSPECIFIED CERVICAL REGION 03/13/[address] active 29 OTHER PSYCHOACTIVE SUBSTANCE USE, UNSPECIFIED WITH PSYCHOACTIVE SUBSTANCE-INDUCED MOOD DISORDER 03/13/[address] active 30 OTHER SPECIFIED POSTPROCEDURAL STATES 03/13/[address] active 31 PELVIC AND PERINEAL PAIN 03/13/[address] active 32 PERSONAL HISTORY OF OTHER MENTAL AND BEHAVIORAL DISORDERS 03/13/[address] active 33 SCHIZOAFFECTIVE DISORDER, UNSPECIFIED 03/13/[address] active 34 SPINAL STENOSIS, CERVICAL REGION 03/13/[address] active 35 SUICIDE ATTEMPT, INITIAL ENCOUNTER 03/13/[address] active 36 UNSPECIFIED ASTHMA, UNCOMPLICATED 03/13/[address] active 37 UNSPECIFIED PSYCHOSIS NOT DUE TO A SUBSTANCE OR KNOWN PHYSIOLOGICAL CONDITION 03/13/[address] active Reason for Referral No Reasons for Referral Entered Social History Social History Observation Description Start Date End Date Code Code System Current Smoking Status Tobacco smoking consumption unknown 673094777 SNOMED CT Sex Assigned At Female 1970 [address]5 [facility] Gender Identity Vital Signs Code Code System Vitals Name Values and Units Timing Information 97438-0 LOINC Pain Level Value=0.0 03/17/2023 08489-8 LOINC O2 % BldC Oximetry Value=96.0 Units= % 03/15/2023 9279-1 LOINC Respiratory Rate Value=16.0 Units=/m in 03/15/2023 8462-4 [facility] Blood Pressure-Diastolic Value=83 Un its=mmHg 03/15/2023 8480-6 [facility] Blood Pressure-Systolic Pxanr=665 Un its=mmHg 03/15/2023 8310-5 [facility] Body Temperature Value=97.7 Units= F 03/15/2023 8867-4 [facility] Heart rate Value=64.0 Units=/min 13747-0 [facility] Weight Wcaai=138.6 Units=Lbs 8302-2 [facility] Height Value=67.0 Units=Inches 03/14/2023
== END 2024-12-17 14:29 | DRG 309 ==
LOC: ER 18:37 → MS 19:53
PROVIDERS: Internal Medicine Cardiovascular Disease; Registered Nurse; Admitting Provider Student in an Organized Health Care Education/Training Program; Emergency Provider Emergency Medicine; PCP Family Medicine; Visit Provider Family Medicine
DX: R00.1 Bradycardia, unspecified (principal); F10.239 Alcohol dependence with withdrawal, unspecified; N39.0 Urinary tract infection, site not specified; I69.351 Hemiplegia and hemiparesis following cerebral infarction affecting right dominant side; R51.9 Headache, unspecified; I10 Essential (primary) hypertension; J44.9 Chronic obstructive pulmonary disease, unspecified; K25.9 Gastric ulcer, unspecified as acute or chronic, without hemorrhage or perforation; R79.89 Other specified abnormal findings of blood chemistry; R73.9 Hyperglycemia, unspecified; G47.30 Sleep apnea, unspecified; G24.01 Drug induced subacute dyskinesia; R41.82 Altered mental status, unspecified; R07.9 Chest pain, unspecified; I25.2 Old myocardial infarction; Z90.710 Acquired absence of both cervix and uterus; F31.9 Bipolar disorder, unspecified; F14.11 Cocaine abuse, in remission; Z79.899 Other long term (current) drug therapy; M48.02 Spinal stenosis, cervical region; M48.03 Spinal stenosis, cervicothoracic region; Z98.1 Arthrodesis status
CPT/HCPCS: 36415; 70450; 70496; 70551; 71046; 72141; 80048; 80053; 80307; 81001; 82140; 82800; 83605; 83735; 83880; 84443; 84484; 85025; 85027; 85610; 85652; 86140; 87040; 87086; 93005; 93017; 93270; 93308; 96365; 96375; 96376; 99285; 99999; G0378; J0131; J0360; J0696; J0780; J1100; J1200; J1230; J1885; J2405; J2765; J3475; Q9967